=== PATIENT | female | born 1975 | race Caucasian/White ===

== ENCOUNTER → 2019-03-27 13:39 | Outpatient (BNVA) | payer MEDICARE, MEDICAID, SELFPAY | PROVIDERS: Family Provider Nurse Practitioner; PCP Nurse Practitioner; Visit Provider Nurse Practitioner | DX: I10 Essential (primary) hypertension (principal); J45.909 Unspecified asthma, uncomplicated; E53.8 Deficiency of other specified B group vitamins; E03.8 Other specified hypothyroidism; E55.9 Vitamin D deficiency, unspecified; F41.1 Generalized anxiety disorder; Z78.9 Other specified health status | CPT/HCPCS: 80053; 80061; 82306; 82607; 84443 ==

== ENCOUNTER → 2019-09-08 10:14 | Outpatient (BNVA) | payer MEDICARE, MEDICAID, SELFPAY | PROVIDERS: Family Provider Nurse Practitioner; PCP Nurse Practitioner; Visit Provider Nurse Practitioner | DX: E03.8 Other specified hypothyroidism (principal); E53.8 Deficiency of other specified B group vitamins; I11.0 Hypertensive heart disease with heart failure; R73.9 Hyperglycemia, unspecified; E55.9 Vitamin D deficiency, unspecified | CPT/HCPCS: 80053; 80061; 81000; 82306; 82607; 83036; 84443 ==

== ENCOUNTER → 2019-09-26 10:08 | Outpatient (BNVA) | payer MEDICARE, MEDICAID, SELFPAY | PROVIDERS: Family Provider Nurse Practitioner; PCP Nurse Practitioner; Visit Provider Nurse Practitioner Family | DX: N30.90 Cystitis, unspecified without hematuria (principal); N39.3 Stress incontinence (female) (male); F17.210 Nicotine dependence, cigarettes, uncomplicated | CPT/HCPCS: 80053; 81001; 87077; 87086; 87186 ==

== ENCOUNTER → 2019-12-21 12:00 | Outpatient (BNVA) | payer MEDICARE, MEDICAID, SELFPAY | PROVIDERS: Family Provider Nurse Practitioner; PCP Nurse Practitioner; Visit Provider Nurse Practitioner | DX: E53.8 Deficiency of other specified B group vitamins (principal); E55.9 Vitamin D deficiency, unspecified | CPT/HCPCS: 82607 ==

== ENCOUNTER 2020-03-16 10:53 | Emergency (ER) | payer MEDICARE, MEDICAID, SELFPAY ==
[2020-03-16 10:59] VITALS: BP 166/123; PULSE 113; RESP 18; TEMP 36.3; O2SAT 95; BMI 46.9
[2020-03-16 15:09] VITALS: BP 164/123; PULSE 115; RESP 22; O2SAT 96
--- NOTE | 2020-03-16 15:35 | XRR_ITS ---
PROCEDURE INFORMATION: Exam: XR Chest, 2 Views Exam date and time: 03/16/2020 3:36 PM Age: 44 years old Clinical indication: Shortness of breath; Additional info: SOB TECHNIQUE: Imaging protocol: XR of the chest Views: 2 views. COMPARISON: No relevant prior studies available. FINDINGS: Lungs: Unremarkable. No consolidation. Pleural space: Unremarkable. No pleural effusion. No pneumothorax. Heart/Mediastinum: Unremarkable. No cardiomegaly. Vasculature: Mild atherosclerosis of the thoracic aorta. Bones/joints: Unremarkable. XR/XR chest 2V* [id number] IMPRESSION: No acute cardiopulmonary disease demonstrated.
--- NOTE | 2020-03-16 15:39 | ED_ITS ---
HPI - Anxiety General: Chief Complaint: Anxiety Stated Complaint: COVID SYMPTOMS Time Seen by Provider: 03/16/20 15:25 History of Present Illness: HPI narrative: 44-year-old female presents to the emergency room with anxiety. She was exposed to her father who has tested positive for COVID-19 she has various symptoms she has a history of asthma she is worried she may have contracted it she is was tested yesterday and was negative. She has had different episodes of feeling short of breath having chest heaviness numbness and tingling and discomfort in her arms on her face all accompanied by rapid heart rate and rapid breathing. She is not having any sym ptoms at the time she is seen. She is not had any fever sweats or chills no anosmia and no diarrhea MD complaint: anxiety, heart racing and shortness of breath Onset (ago): hour(s) Symptoms: dyspnea, palpitations, extremity numbness/tingling, perioral numbness/tingling and sense of impending doom Severity: mild Quality: intermittent Place: home History of similar episodes: Yes Provoking factors: emotional stress Relieving factors: nothing Exacerbating factors: thinking about event Associated symptoms: Reports palpitations and short of breath; Deny anorexia, chest pain, chills, confusion, diaphoresis, fever(s), headache(s), malaise, nausea, syncope, vomiting or weakness Review of Systems Const: Denies: fever(s), chills, malaise or diaphoresis ENMT: Denies: throat pain, ear or mastoid pain, nasal discharge or nasal congestion Card: Reports: palpitations; Denies: chest pain or syncope Resp: Denies: dyspnea, productive cough or non-productive cough GI: Denies: nausea or vomiting : Denies: flank pain, difficulty voiding, dysuria, urinary frequency or urinary urgency Skin/Breast: Denies: rash or pruritus Neuro: Denies: headache(s) or confusion PFSH ED PFSH: Medical History Adult onset hypothyroidism Anxiety, generalized Asthma due to environmental allergies B12 deficiency Chronic cystitis Essential (primary) hypertension Stress incontinence Vitamin D deficiency Surgical History History of bladder surgery age 7 History of surgery on right wrist as a teen Family History Mother Heart trouble Father Alzheimer disease Other Heart disease Social History Smoking and tobacco status: current some day smoker cigarettes Second hand smoke exposure: Yes Smoking risk assessment/counseling performed?: Yes Alcohol intake: never Desire information about alcohol rehabilitation?: No Counseling given: No Desire information about substance/drug rehabilitation?: No Counseling given: No Caregiver/support person: No Lives independently: Yes Household members: none Marital status: Number of children: 1 service: No Current occupational status: disabled Pets and animals: Yes History of recent travel: No Current gender identity: Female Female Reproductive History: Date of last menstrual period: 12/05/19 Physical Exam Const: COMMON NORMALS: no acute distress GENERAL APPEARANCE: cooperative and comfortable ORIENTATION/CONSCIOUSNESS: Yes awake, Yes oriented to person, Yes oriented to place and Yes oriented to time HENMT: COMMON NORMALS: normocephalic, atraumatic and hearing grossly normal bilaterally HEAD & SCALP: normocephalic and atraumatic Eye: COMMON NORMALS: Equal, round and reactive pupils present, EOMs intact bilaterally, conjunctivae normal and no scleral icterus CONJUNCTIVA: Yes conjunctivae normal PUPIL: Yes Equal, round and reactive pupils present Neck/C-Spine: COMMON NORMALS: full ROM, no lymphadenopathy, supple and no JVD Lymph: LYMPHATIC: no lymphadenopathy noted and no lymphedema noted Resp: COMMON NORMALS: normal respiratory effort, No retractions, No use of accessory muscles and clear to auscultation bilaterally AUSCULTATION: clear to auscultation bilaterally Cardio: COMMON NORMALS: no JVD, regular rate, regular rhythm and No murmurs present (Cardio) RATE: regular rate RHYTHM: regular rhythm GI: COMMON NORMALS: Soft to palpation and No hepatosplenomegaly present AUSCULTATION: Yes normoactive bowel sounds PALPATION: Yes Soft to palpation, No Tenderness to palpation present (GI), No Guarding due to palpation present (GI) and Yes No hepatosplenomegaly present Extremity: COMMON NORMALS: normal to inspection, capillary refill normal, no clubbing, cyanosis or edema, no calf tenderness and no pedal edema Neuro: SENSORIUM/ORIENTATION: Yes oriented to person, Yes oriented to place and Yes oriented to time Skin: COMMON NORMALS: no rashes or lesions noted GENERAL SKIN EXAM: no rashes or lesions noted Course Vital Signs: Vital signs: Vital Signs Temperature 97.3 F L 03/16/20 10:59 Pulse Rate 100 03/16/20 16:30 Respiratory Rate 20 H 03/16/20 16:30 Blood Pressure 151/101 03/16/20 16:30 Pulse Oximetry 95 03/16/20 16:30 MDM - Anxiety MDM Narrative: Medical decision making narrative: Discussed findings with the patient. She has no findings of Covid this time she had a negative test yesterday discharge her home monitor for symptoms discussed with her she has any worsening or change symptoms return. Discharge Plan Discharge Patient Disposition: Home Clinical Impression: Acute anxiety, Asthma due to environmental allergies, Close exposure to COVID- 19 virus Condition: Stable Prescriptions: No Action nitrofurantoin monohyd/m-cryst 100 mg capsule 100 mg PO BID Qty: 28 RF: 3 (DME) syringe with needle 3 mL 25 gauge x 1 syringe See Rx Instructions ea .ROUTE .MEDSUPPLY Qty: 1 RF: 2 [place] 0.7 % drops ophthalmic (eye) RF: 0 carisoprodol 350 mg tablet 350 mg PO TID PRN (Reason: muscle pain) RF: 0 ibuprofen 600 mg tablet 600 mg PO BID RF: 0 albuterol sulfate 2.5 mg /3 mL (0.083 %) solution for nebulization 2.5 mg INHALATION Q6H PRN (Reason: wheezing) Qty: 75 RF: 2 citalopram 40 mg tablet 40 mg PO DAILY Qty: 30 RF: 2 docusate sodium 100 mg capsule 100 mg PO DAILY Qty: 30 RF: 2 ergocalciferol (vitamin D2) 1,250 mcg (50,000 unit) capsule 50,000 unit PO .weekly Qty: 4 RF: 2 levalbuterol tartrate [Xopenex HFA] 45 mcg/actuation HFA aerosol inhaler 2 inh INHALATION Q6H PRN (Reason: shortness of breath or wheezing) Qty: 15 RF: 2 levocetirizine 5 mg tablet 5 mg PO DAILY Qty: 30 RF: 2 levothyroxine 88 mcg tablet 88 mcg PO DAILY Qty: 30 RF: 2 lisinopril 20 mg tablet 20 mg PO DAILY Qty: 30 RF: 2 magnesium oxide 400 mg magnesium tablet 400 mg PO BID Qty: 60 RF: 2 montelukast 10 mg tablet 10 mg PO DAILY Qty: 30 RF: 2 propranolol 40 mg tablet 40 mg PO BID Qty: 60 RF: 2 cyanocobalamin (vitamin B-12) 1,000 mcg/mL solution 1,000 mcg IM .monthly Qty: 1 RF: 2 Hold Instructions: Doctor's Order Discharge Orders: Discharge ED (Routine); Ordered 03/16/20 Ordered By: Bill Luz Referrals: Jessica Cooney, ASSISTANT CORPORATE CONTROLLERChristopherC [Primary Care Provider] - Activity Restrictions/Additional Instructions: Continue previously prescribed medications. Coding Level of Care Code ED Molding And Trim Installer for Macy Fwd Exam Comprehensive
[2020-03-16 16:30] VITALS: BP 151/101; PULSE 100; RESP 20; O2SAT 95
== END 2020-03-16 16:30 | disposition home or self-care (01) ==
PROVIDERS: Emergency Provider Family Medicine; PCP Nurse Practitioner
DX: F41.9 Anxiety disorder, unspecified (principal); J45.998 Other asthma; Z20.828 Contact with and (suspected) exposure to other viral communicable diseases; I10 Essential (primary) hypertension; F17.210 Nicotine dependence, cigarettes, uncomplicated
CPT/HCPCS: 12345; 71046; 99281; 99282

== ENCOUNTER → 2020-04-04 14:30 | Outpatient (BNVA) | payer MEDICARE, MEDICAID, SELFPAY | PROVIDERS: PCP Nurse Practitioner; Visit Provider Nurse Practitioner | DX: Z20.828 Contact with and (suspected) exposure to other viral communicable diseases (principal); R00.2 Palpitations; E03.8 Other specified hypothyroidism; I10 Essential (primary) hypertension; E53.8 Deficiency of other specified B group vitamins; E55.9 Vitamin D deficiency, unspecified; J45.909 Unspecified asthma, uncomplicated | CPT/HCPCS: 80053; 80061; 82306; 82607; 84443; 87635 ==

== ENCOUNTER → 2020-05-28 11:40 | Outpatient (BNVA) | payer MEDICARE, MEDICAID, SELFPAY | PROVIDERS: PCP Nurse Practitioner; Visit Provider Nurse Practitioner | DX: J45.909 Unspecified asthma, uncomplicated (principal); F41.1 Generalized anxiety disorder; I10 Essential (primary) hypertension; E55.9 Vitamin D deficiency, unspecified; E78.1 Pure hyperglyceridemia; E03.8 Other specified hypothyroidism; H57.9 Unspecified disorder of eye and adnexa; R00.2 Palpitations; E53.8 Deficiency of other specified B group vitamins; R53.81 Other malaise | CPT/HCPCS: 80053; 85025 ==

== ENCOUNTER 2020-06-05 06:00 | Outpatient (RCR) | payer MEDICARE, MEDICAID, SELFPAY | END 2020-06-12 23:59 | disposition home or self-care (01) | LOC: TPT 06:00 | PROVIDERS: PCP Nurse Practitioner; Referring Provider Nurse Practitioner; Visit Provider Nurse Practitioner | DX: R53.81 Other malaise (principal) | CPT/HCPCS: 97110; 97161 ==

== ENCOUNTER 2020-06-13 06:00 | Outpatient (RCR) | payer MEDICARE, MEDICAID, SELFPAY | END 2020-07-12 23:59 | disposition home or self-care (01) | LOC: TPT 06:00 | PROVIDERS: PCP Nurse Practitioner; Referring Provider Nurse Practitioner; Visit Provider Nurse Practitioner | DX: R53.81 Other malaise (principal) | CPT/HCPCS: 97110 ==

== ENCOUNTER 2020-07-13 06:00 | Outpatient (RCR) | payer MEDICARE, MEDICAID, SELFPAY | END 2020-08-12 23:59 | disposition home or self-care (01) | LOC: TPT 06:00 | PROVIDERS: PCP Nurse Practitioner; Referring Provider Nurse Practitioner; Visit Provider Nurse Practitioner | DX: R53.81 Other malaise (principal) | CPT/HCPCS: 97110; 97140; 97164 ==

== ENCOUNTER → 2020-08-01 14:15 | Outpatient (BNVA) | payer MEDICARE, MEDICAID, SELFPAY | PROVIDERS: PCP Nurse Practitioner; Visit Provider Nurse Practitioner | DX: Z11.3 Encounter for screening for infections with a predominantly sexual mode of transmission (principal); Z12.4 Encounter for screening for malignant neoplasm of cervix | CPT/HCPCS: 86592; 87491; 87591; 87806; 88175 ==

== ENCOUNTER 2020-08-13 06:00 | Outpatient (RCR) | payer MEDICARE, MEDICAID, SELFPAY | END 2020-09-11 23:59 | disposition home or self-care (01) | LOC: TPT 06:00 | PROVIDERS: PCP Nurse Practitioner; Referring Provider Nurse Practitioner; Visit Provider Nurse Practitioner | DX: R53.81 Other malaise (principal) | CPT/HCPCS: 97110; 97140; 97164 ==

== ENCOUNTER → 2020-08-26 10:03 | Outpatient (BNVA) | payer MEDICARE, MEDICAID, SELFPAY | PROVIDERS: PCP Nurse Practitioner; Visit Provider Nurse Practitioner Family | DX: Z20.822 Contact with and (suspected) exposure to COVID-19 (principal) | CPT/HCPCS: 87635 ==

== ENCOUNTER 2020-09-12 06:00 | Outpatient (RCR) | payer MEDICARE, MEDICAID, SELFPAY | END 2020-10-12 23:59 | disposition home or self-care (01) | LOC: TPT 06:00 | PROVIDERS: PCP Nurse Practitioner; Referring Provider Nurse Practitioner; Visit Provider Nurse Practitioner | DX: R53.81 Other malaise (principal) | CPT/HCPCS: 97110 ==

== ENCOUNTER 2020-09-13 10:33 | Emergency (ER) | payer MEDICARE, MEDICAID, SELFPAY ==
[2020-09-13 11:42] VITALS: BP 144/100; PULSE 100; RESP 15; TEMP 36.8; O2SAT 95; BMI 45.7
--- NOTE | 2020-09-13 12:56 | W.ED.SKABFB ---
HPI - Skin/Abscess/Foreign Bdy General: Chief complaint: Skin/Abscess/Foreign Body Stated complaint: BOIL ON GROIN Time Seen by Provider: 09/13/20 11:51 History of Present Illness: HPI narrative: The patient is a 44-year-old female who comes to the ER complaining of an abscess in her pubic region. She says she has had abscesses on and off for the past month in that area and it was getting better until a few days ago she developed another one which hurts her worse. She has severe allergies to many antibiotics and even though doxycycline is not listed she says she does not like that antibiotic. She is requesting clindamycin. And has tolerated that one well before. Other listed allergies she turns blue. MD complaint: abscess/boil Onset (ago): day(s) (4) Severity: mild Exacerbating factors: palpation Context: none Associated symptoms: Reports no associated symptoms; Deny fever(s) Review of Systems General: Reports: 10 or more systems reviewed and unremarkable except in HPI and below Const: Denies: fever(s) Eyes: Denies: change in vision, blurry vision or eye redness ENMT: Denies: throat pain, swelling of lips/tongue, ear or mastoid pain or nasal congestion Card: Denies: chest pain, palpitations, irregular heart rhythm, edema, dyspnea on exertion or orthopnea Resp: Denies: dyspnea, productive cough or non-productive cough GI: Denies: abdominal pain, diarrhea or GI cramping : Denies: flank pain, difficulty voiding, urinary frequency or urinary urgency Musc: Denies: neck pain, back pain, extremity pain, joint pain, joint redness, limited range of motion or muscle weakness Skin/Breast: Reports: other (Boil to right pubic region); Denies: rash, pruritus, erythema, skin pain or skin tenderness Neuro: Denies: headache(s), numbness in extremities, weakness in extremities, sensory changes, difficulty walking, dizziness, confusion or Slurred speech present Psych: Denies: anxiety or depression Endo: Denies: polyuria All/Imm: Denies: urticaria, throat swelling or tongue swelling PFSH ED PFSH: Medical History Adult onset hypothyroidism Allergic eye reaction Anxiety, generalized Asthma due to environmental allergies B12 deficiency Chronic cystitis Essential (primary) hypertension Hypertriglyceridemia without hypercholesterolemia Obesity, morbid, BMI 40.0-49.9 Palpitations with regular cardiac rhythm Stress incontinence Vitamin D deficiency Surgical History History of bladder surgery age 7 History of surgery on right wrist as a teen Family History Mother Heart trouble Father Alzheimer disease Other Heart disease Social History Smoking and tobacco status: current some day smoker cigarettes Second hand smoke exposure: Yes Smoking risk assessment/counseling performed?: Yes Alcohol intake: never Desire information about alcohol rehabilitation?: No Counseling given: No Desire information about substance/drug rehabilitation?: No Counseling given: No Caregiver/support person: No Lives independently: Yes Household members: none Marital status: Number of children: 1 service: No Current occupational status: disabled Pets and animals: Yes History of recent travel: No Current gender identity: Female Female Reproductive History: Date of last menstrual period: 10/05/20 Physical Exam Const: COMMON NORMALS: no acute distress, average body habitus, patient oriented x3, no limitations, healthy appearing, alert and well nourished GENERAL APPEARANCE: cooperative, comfortable, well kempt and well developed ORIENTATION/CONSCIOUSNESS: Yes awake, Yes oriented to person, Yes oriented to place and Yes oriented to time HENMT: COMMON NORMALS: normocephalic, external ears normal and Normal external nose present HEAD & SCALP: normal to inspection and normocephalic NOSE: Normal external nose present EXTERNAL EAR: Yes external ears normal MOUTH: Normal oral and palatal mucosa present THROAT: posterior oropharynx normal Eye: COMMON NORMALS: Equal, round and reactive pupils present and EOMs intact bilaterally GENERAL EYE: appearance normal, both eyes and all related structures PUPIL: Yes Equal, round and reactive pupils present Neck/C-Spine: COMMON NORMALS: full ROM, no lymphadenopathy, no meningeal signs and no JVD GENERAL: Yes normal visual inspection Lymph: LYMPHATIC: no lymphadenopathy noted Chest: COMMONS NORMALS: normal inspection of the chest and normal palpation of entire chest wall Resp: COMMON NORMALS: normal respiratory effort, No retractions, No use of accessory muscles, clear to auscultation bilaterally and percussion normal EFFORT & INSPECTION: Yes able to speak in complete sentences AUSCULTATION: clear to auscultation bilaterally PERCUSSION: percussion normal Cardio: COMMON NORMALS: no JVD, regular rate, regular rhythm, S1 normal heart sound present, S2 normal heart sound present and Peripheral pulses 2+ throughout RATE: regular rate RHYTHM: regular rhythm HEART SOUNDS: S1 normal heart sound present and S2 normal heart sound present PERIPHERAL PULSES: Peripheral pulses 2+ throughout GI: COMMON NORMALS: Normal to inspection, nondistended, normoactive bowel sounds present, Soft to palpation, non-tender and no masses INSPECTION: Yes normal to inspection PALPATION: Yes Soft to palpation : COMMON NORMALS: Yes no CVA tenderness BLADDER/KIDNEY EXAM: Yes no CVA tenderness Back/Pelvis: COMMON NORMALS: no CVA tenderness, thoracic and lumbar spine normal to inspection, no thoracic nor lumbar tenderness and thoraco-lumbar ROM normal Extremity: COMMON NORMALS: normal to inspection, full ROM, capillary refill normal, no joint enlargement and no pedal edema GENERAL: Yes normal exam except as noted Neuro: COMMON NORMALS: patient oriented x3, CN's II-XII intact bilaterally, moves all extremities, no focal motor deficits, no sensory deficits noted and gait normal SENSORIUM/ORIENTATION: Yes alert, Yes oriented to person, Yes oriented to place and Yes oriented to time MENINGEAL SIGNS: Yes no meningeal signs Psych: COMMON NORMALS: mental status grossly normal, Normal thought process present, cooperative, normal affect and speech normal APPEARANCE: Yes well kempt ATTITUDE: Yes calm SPEECH: Yes normal speech THOUGHT PROCESS: Normal thought process present Skin: COMMON NORMALS: no rashes or lesions noted NARRATIVE SKIN EXAM: 2 small frontals to right pubic region. Other recent ones healing appropriately scattered. GENERAL SKIN EXAM: no rashes or lesions noted Procedures Abscess I/D Site: other (Right pubic region) Side (if applicable): right Local Anesthetic: lidocaine 1% Amount of anesthesia used (mL): 3 Technique: incised with #11 blade Amount of fluid expressed (mL): 1 Irrigation: No Packing used?: none Course Vital Signs: Vital signs: Vital Signs Temperature 98.3 F 09/13/20 11:42 Pulse Rate 100 09/13/20 11:42 Respiratory Rate 15 09/13/20 11:42 Blood Pressure 144/100 09/13/20 11:42 Pulse Oximetry 95 09/13/20 11:42 MDM - Skin/Abscess/Foreign Bdy MDM Narrative: Medical decision making narrative: Drain to small furuncles to the right pubic region. Small discharge. Patient tolerated well. She is requesting clindamycin. She did not tolerate doxy well and has severe allergies to multiple antibiotics. We will discharge her with clindamycin. She is going on vacation. Recommended go to local ER with worsening symptoms at any time. Follow-up with primary if possible in a few days to monitor wound. Discharge Plan Discharge Patient Disposition: Home Clinical Impression: Furuncle Condition: Stable Prescriptions: New clindamycin HCl 150 mg capsule 150 mg PO Q6H 7 Days Qty: 28 RF: 0 No Action carisoprodol 350 mg tablet 350 mg PO TID PRN (Reason: muscle pain) RF: 0 ibuprofen 600 mg tablet 600 mg PO BID RF: 0 albuterol sulfate 2.5 mg /3 mL (0.083 %) solution for nebulization 2.5 mg INHALATION Q6H PRN (Reason: wheezing) Qty: 75 RF: 2 budesonide-formoterol [Symbicort] 80-4.5 mcg/actuation HFA aerosol inhaler 2 puff inhalation Q12H Qty: 10.2 RF: 2 citalopram 40 mg tablet 40 mg PO DAILY Qty: 30 RF: 2 docusate sodium 100 mg capsule 100 mg PO DAILY Qty: 30 RF: 2 ergocalciferol (vitamin D2) 1,250 mcg (50,000 unit) capsule 50,000 unit PO .weekly Qty: 4 RF: 2 fenofibrate nanocrystallized [Tricor] 145 mg tablet 145 mg PO DAILY Qty: 30 RF: 2 levalbuterol tartrate [Xopenex HFA] 45 mcg/actuation HFA aerosol inhaler 2 inh INHALATION Q6H PRN (Reason: shortness of breath or wheezing) Qty: 15 RF: 2 levocetirizine 5 mg tablet 5 mg PO DAILY Qty: 30 RF: 2 levothyroxine 88 mcg tablet 88 mcg PO DAILY Qty: 30 RF: 2 lisinopril 20 mg tablet 20 mg PO DAILY Qty: 30 RF: 2 magnesium oxide 400 mg magnesium tablet 400 mg PO BID Qty: 60 RF: 2 montelukast 10 mg tablet 10 mg PO DAILY Qty: 30 RF: 2 olopatadine 0.2 % drops 1 drp ophthalmic (eye) QAM Qty: 2.5 RF: 2 propranolol 40 mg tablet 40 mg PO QID Qty: 120 RF: 2 (DME) syringe with needle 3 mL 25 gauge x 1 syringe See Rx Instructions ea .ROUTE .MEDSUPPLY Qty: 1 RF: 2 benzonatate [Tessalon Perles] 100 mg capsule 100 mg PO BID PRN (Reason: cough) Qty: 30 RF: 0 Discharge Orders: Discharge ED (Routine); Ordered 09/13/20 Ordered By: Juan Saxena Referrals: Jessica Cooney, STAGING TECHNICIAN-C [Primary Care Provider] - Discharge Diet: Advance as tolerated Discharge Activity: Resume usual activity Patient Instructions: Furunculosis and Carbunculosis (ED), Opioid Safety Activity Restrictions/Additional Instructions: You have had a couple boils to your right pubic region. I have drained both of them with a small amount of drainage. Please take the clindamycin to assist with the local infection. Return to the ER at any time. If you are traveling Google the nearest ER if your symptoms worsen. Coding Level of Care Code ED Statistical Machine Mechanic for Macy Valdovinos Exam Comprehensive
[2020-09-13] MEDS: clindamycin 150 mg Capsule PO (13:28)
[2020-09-13 13:29] VITALS: BP 143/82; PULSE 89; RESP 16; O2SAT 96
== END 2020-09-13 13:35 | disposition home or self-care (01) ==
PROVIDERS: Emergency Provider Family Medicine; PCP Nurse Practitioner
DX: L02.828 Furuncle of other sites (principal); I10 Essential (primary) hypertension; F17.210 Nicotine dependence, cigarettes, uncomplicated
CPT/HCPCS: 10060; 99283

== ENCOUNTER 2020-10-13 06:00 | Outpatient (RCR) | payer MEDICARE, MEDICAID, SELFPAY | END 2020-11-12 23:59 | disposition home or self-care (01) | LOC: TPT 06:00 | PROVIDERS: PCP Nurse Practitioner; Referring Provider Nurse Practitioner; Visit Provider Nurse Practitioner | DX: R53.81 Other malaise (principal) | CPT/HCPCS: 97110; 97164 ==

== ENCOUNTER → 2020-10-30 11:33 | Outpatient (BNVA) | payer MEDICARE, MEDICAID, SELFPAY | PROVIDERS: PCP Nurse Practitioner; Visit Provider Nurse Practitioner | DX: M47.896 Other spondylosis, lumbar region (principal); M54.5 Low back pain | CPT/HCPCS: 72100 ==

== ENCOUNTER → 2020-11-01 11:48 | Outpatient (BNVA) | payer MEDICARE, MEDICAID, SELFPAY | PROVIDERS: PCP Nurse Practitioner; Visit Provider Nurse Practitioner | DX: E03.8 Other specified hypothyroidism (principal); I10 Essential (primary) hypertension; E53.8 Deficiency of other specified B group vitamins; E55.9 Vitamin D deficiency, unspecified | CPT/HCPCS: 80053; 80061; 82306; 82607; 84443 ==

== ENCOUNTER → 2020-11-07 10:02 | Outpatient (BNVA) | payer MEDICARE, MEDICAID, SELFPAY | PROVIDERS: PCP Nurse Practitioner; Visit Provider Urology | DX: N30.20 Other chronic cystitis without hematuria (principal); N20.0 Calculus of kidney; N39.3 Stress incontinence (female) (male) | CPT/HCPCS: 87077; 87086; 87184 ==

== ENCOUNTER 2020-11-13 06:00 | Outpatient (RCR) | payer MEDICARE, MEDICAID, SELFPAY | END 2020-12-12 23:59 | disposition home or self-care (01) | LOC: TPT 06:00 | PROVIDERS: PCP Nurse Practitioner; Referring Provider Nurse Practitioner; Visit Provider Nurse Practitioner | DX: R53.81 Other malaise (principal) | CPT/HCPCS: 97110; 97164 ==

== ENCOUNTER 2020-11-20 11:37 | Outpatient (CLI) | payer MEDICARE, MEDICAID, SELFPAY ==
--- NOTE | 2020-11-20 12:00 | CT_ITS ---
WS: [id number] CT ABDOMEN PELVIS TECHNIQUE: Noncontrast CT of the abdomen and pelvis with coronal and sagittal reformatted images. CLINICAL INFORMATION: RENAL STONE COMPARISON: None. DLP: 2143.[address] scans at [facility] use at least one of these dose optimization techniques: automated e xposure control; mA and/or kV adjustment per patient size (includes targeted exams where dose is matc hed to clinical indication); or iterative reconstruction. FINDINGS: Adrenal glands are normal. Large calculus involving the right renal pelvis measuring 13 mm. Adjacent smaller calculi measuring 6 mm and 4 mm. Mild right obstructive uropathy with dilatation of the right renal pelvis. Mild dilatation of the right proximal ureter with surrounding inflammatory stranding. Mid and distal right ureter normal in appearance. No obstructing left renal or ureteral calculi. Left ureter is normal. Normal noncontrast bladder. Noncontrast liver is normal in appearance with enlargement of the right hepatic lobe. Normal spleen. Normal GE junction. Lung bases are well aerated. Two Tiny noncalcified subpleural nodules right middl e lobe. Noncontrast pancreas appears normal. Normal caliber abdominal aorta. No abdominal or pelvic l ymphadenopathy. No inguinal lymphadenopathy. No evidence of small or large bowel obstruction. No free fluid in the pelvis. Multifollicular ovaries bilaterally. CT/CT kidney stone [id number] IMPRESSION: 1. Large right renal pelvic calculus measuring 13 mm with adjacent smaller brandi culi measuring 6 and 4 mm. Mild obstructive uropathy with dilatation right david l pelvis and right proximal ureterectasis. Associated inflammatory stranding ab out the right renal pelvis and UPJ. 2. No obstructing left renal parenchymal or ureteral calculi. 3. Adrenal glands are normal. 4. Hepatomegaly with diffuse fatty infiltration. 5. Noncontrast bladder appears normal. 6. No other significant findings.
== END 2020-11-20 11:38 | disposition home or self-care (01) ==
LOC: RAD 11:40
PROVIDERS: PCP Nurse Practitioner; Visit Provider Urology
DX: N20.2 Calculus of kidney with calculus of ureter (principal); R16.0 Hepatomegaly, not elsewhere classified; K76.0 Fatty (change of) liver, not elsewhere classified
CPT/HCPCS: 74176; 81003

== ENCOUNTER → 2020-12-02 10:18 | Outpatient (BNVA) | payer MEDICARE, MEDICAID, SELFPAY | PROVIDERS: PCP Nurse Practitioner; Visit Provider Nurse Practitioner | DX: Z20.822 Contact with and (suspected) exposure to COVID-19 (principal) | CPT/HCPCS: 87635 ==

== ENCOUNTER → 2020-12-10 16:21 | Outpatient (BNVA) | payer MEDICARE, MEDICAID, SELFPAY | PROVIDERS: PCP Nurse Practitioner; Visit Provider Urology | DX: N20.0 Calculus of kidney (principal); Z20.822 Contact with and (suspected) exposure to COVID-19 | CPT/HCPCS: 87635 ==

== ENCOUNTER 2020-12-16 10:25 | Day surgery (SDC) | payer MEDICARE, MEDICAID, SELFPAY ==
[2020-12-13 10:50] VITALS: BMI 44.9
[2020-12-16] VITALS (9 sets, daily range): BP systolic 109–132; BP diastolic 75–93; PULSE 81–96; RESP 14–25; TEMP 36.1–36.8; O2SAT 91–98
--- NOTE | 2020-12-16 10:49 | XR_ITS ---
WS: [id number] XR KUB [id number] REASON FOR EXAM: preop ESWL FINDINGS: There are 3 large calculi overlying the central lower portion of the right kidney unchanged compared to the CT scan of 11/20/2020. No other urinary tract calculi identified. No other significant abdominal abnormality is identified. XR/XR KUB [id number] IMPRESSION: 3 large right intrarenal calculi unchanged in position.
[2020-12-16] MEDS: sodium chloride 0.9% 1,000 ML 30 ML IV (11:02)
[2020-12-16 11:27] LABS: OR HCG Qualitative Urine Negative (Negative)
--- NOTE | 2020-12-16 12:45 | W.PM.OPSUD ---
Surgery/Procedure H&P Update DATE OF PROCEDURE: December 16, 2020 DATE H&P PERFORMED: 11/20/20 H&P UPDATE INFORMATION: I have reviewed H&P completed within last 30 days, I have examined patient prior to procedure, Changes to prior documentation as noted here and H&P is in [facility] EMR on date indicated CHANGES TO PREVIOUS DOCUMENTATION: After her first visit she was originally planning on ESWL but then changed her mind and decided with the hope of 1 and done procedure wanted referral to the [facility] for percutaneous approach. Ultimately she changed her mind back to local care. We reviewed ESWL versus endoscopy and she has elected to proceed with ESWL and stent. Informed consent was obtained. PREOP DIAGNOSIS: Right renal calculus, partial staghorn PLANNED PROCEDURE: Operation Date: 12/16/20 12:00 Proposed Procedures p Cystoscopy [id number] N20.0(Not Applicable) - Terry Hamilton MD s Ureteral Stent Placement(Not Applicable) - Terry Hamilton MD s ESWL(Not Applicable) - Terry Hamilton MD
--- NOTE | 2020-12-16 14:14 | P.OP_ITS ---
Operative Report Date of procedure: December 16, 2020 Pre-op Diagnosis: Right renal calculus, partial staghorn Post-op diagnosis: same Procedure Done: 1. Cystoscopy with right ureteral stent placement (7 [place] by 26 cm double- pigtail without string) 2. Extracorporeal shockwave lithotripsy to right partial staghorn calculus Pathology: none sent Surgeon: Alfonso Neuropsychiatric Aide: Jade Anesthesia: General Estimated blood loss: None Urine output: Not measured Complications: None Findings: Stent placed without difficulty. Normal position. Stone treated with 2500 shocks with excellent change. May still need a second treatment based on the original stone burden but the response was good. Condition: stable Disposition: PACU Brief History: Cynthia is a very pleasant 45-year-old white female with a history of recurrent UTIs and found to have a partial staghorn on the right kidney. We discussed the options and she was back and forth between ESWL and percutaneous nephrostolithotomy but ultimately chose ESWL as initial treatment. Procedure: After routine preoperative evaluation examination and obtaining of informed consent she was taken to the operating suite on 12/16/2020 where general anesthesia was administered without difficulty after appropriate timeout was performed, SCDs confirmed to be functioning, preoperative antibiotics administered, beta-charlotte protocol confirmed. Prepped and draped in usual sterile fashion in dorsolithotomy position paying careful attention to avoiding pressure points. 21 [place] cystoscope with 30 degree lens was introduced to the urethral meatus and advanced into the bladder to videoscopy. Bladder was systematically examined and found to be within normal limits. Flexible tip guidewire was then easily advanced up the right ureter into the kidney and a 7 [place] by 26 cm double-pigtail stent without string was advanced over the guidewire through the cystoscope into appropriate position as confirmed via fluoroscopy and cystoscopy. The bladder was drained and then she was repositioned in supine position for the shockwave therapy component of the procedure. Shock head was positioned posteriorly. The stones were easily identified and focused upon. Shockwave therapy was initiated at a rate of 70 in intensity 1 with advancement in intensity of 4. After about 300 shocks a several minute pause was conducted. A total of 2500 shocks were administered. Once good change was noted the rate was increased to 80. Change was excellent. Real-time fluoroscopy was utilized to facilitate position changes as needed to paint the entire scope of the stones. At the completion of the procedure the stones all appear to be significantly changed. She tolerated procedure well without complications and was awakened in the operating room and returned to the recovery room in stable condition. PLANS: 1. Anticipate discharge from outpatient surgery 2. Follow-up next week with a KUB with possible cystoscopy and stent removal but I expect stent will remain for a while as we assess stone burden there remains and whether he needs to be retreated or not.
[2020-12-16] MEDS: HYDROmorphone 1 mg/mL INJ 1 mL 0.25 MG IVP (14:37)
--- NOTE | 2020-12-16 16:13 | ANES.PREANE2 ---
Pre-Anesthetic Assessment Pre-Anesthetic Assessment: Height/Weight: Height 1.65 m Weight 122.47 kg Temp Pulse Resp BP Pulse Ox 97.2 F L 89 16 121/82 96 12/16/20 15:26 12/16/20 15:26 12/16/20 15:26 12/16/20 15:26 12/16/20 15:26 Preop Diagnosis: Right renal calculus, partial staghorn Proposed Procedure: Operation Date: 12/16/20 12:00 Proposed Procedures p Cystoscopy 33727 05992 N20.0(Not Applicable) - Terry Hamilton MD s Ureteral Stent Placement(Not Applicable) - Terry Hamilton MD s ESWL(Not Applicable) - Terry Hamilton MD Was Beta Shaun taken within 24 hours: N/A Was Clonidine taken within 24 hours: N/A Last intake: Intake Last Liquid Date 12/15/20 Last Liquid Time 22:00 Last Solid Date 12/09/20 Last Solid Time 22:00 Social: Social History: Tobacco and No alcohol Exam: Pre-Anes Outpt Exam: alert, oriented x 3 and regular rate & rhythm Airway: Submandibular: WNL Cervical ROM: WNL MP: 2 Dentition: Full Pulmonary: Pulmonary: Asthma CV/HEM: CV/HEM: HTN GI: GI: GERD Metabolic: Metabolic: Morbid obesity and Thyroid Musc/skel: Musc/skel: OA/DJD Neuropsych: Neuropsych: Anxiety Anesthetic Plan: ASA status: 3 Anesthesia: General Risk of > 500 ml blood loss (7ml/kg in children): No PFSH Anesthesia PFSH: Medical History Adult onset hypothyroidism Allergic eye reaction Anxiety, generalized Asthma due to environmental allergies B12 deficiency Chronic cystitis Essential (primary) hypertension Family history of malignant melanoma Hypertriglyceridemia without hypercholesterolemia Obesity, morbid, BMI 40.0-49.9 Palpitations with regular cardiac rhythm Staghorn renal calculus Stress incontinence Vitamin D deficiency Surgical History History of bladder surgery age 7 History of surgery on right wrist as a teen Family History Mother Heart trouble Father Alzheimer disease Other Heart disease Social History Second hand smoke exposure: Yes Smoking risk assessment/counseling performed?: Yes Alcohol intake: never Desire information about alcohol rehabilitation?: No Counseling given: No Desire information about substance/drug rehabilitation?: No Counseling given: No Caregiver/support person: No Lives independently: Yes Household members: none Marital status: Number of children: 1 service: No Current occupational status: disabled Pets and animals: Yes History of recent travel: No Current gender identity: Female Female Reproductive History: Date of last menstrual period: 10/05/20 Data Anesthesia Other Labs: Laboratory Results - last 48 hr 12/16/20 11:26 Urine HCG, Qual Negative Cardiac Studies: No Data to Display
== END 2020-12-16 15:43 | disposition home or self-care (01) ==
PROVIDERS: PCP Nurse Practitioner; Visit Provider Urology
PROC: 0TJB8ZZ Inspection of Bladder, Via Natural or Artificial Opening Endoscopic (ICD-10-PCS; CPT 52000; principal; 2020-12-16 12:00)
PROC: (CPT 50605; 2020-12-16 12:00)
PROC: (CPT 50590; 2020-12-16 12:00)
DX: N20.2 Calculus of kidney with calculus of ureter (principal); I10 Essential (primary) hypertension; E66.01 Morbid (severe) obesity due to excess calories; Z68.41 Body mass index [BMI] 40.0-44.9, adult; F41.9 Anxiety disorder, unspecified; E03.9 Hypothyroidism, unspecified
CPT/HCPCS: 50590; 52332; 74018; 81025; 84703; 96365; C2625; J1100; J1170; J1580; J2370; J2405; J2704; J3010; J3490; J7030

== ENCOUNTER 2020-12-23 09:47 | Outpatient (CLI) | payer MEDICARE, MEDICAID, SELFPAY ==
--- NOTE | 2020-12-23 09:45 | XR_ITS ---
WS: [id number] XR KUB [id number] REASON FOR EXAM: RENAL CALCULUS FINDINGS: Right ureteral stent. Multiple large calculi in the right kidney have become less distinct with decre ased stone burden. No calculi identified along the course of the right ureteral stent. No calculi identified overlying the bladder. XR/XR KUB [id number] IMPRESSION: Right ureteral stent with right intrarenal calculi as above.
== END 2020-12-23 09:48 | disposition home or self-care (01) ==
LOC: RAD 09:52
PROVIDERS: PCP Nurse Practitioner; Visit Provider Urology
DX: N20.0 Calculus of kidney (principal); Z96.0 Presence of urogenital implants
CPT/HCPCS: 74018; 81003

== ENCOUNTER 2021-01-03 08:13 | Outpatient (CLI) | payer MEDICARE, MEDICAID, SELFPAY ==
--- NOTE | 2021-01-03 08:00 | XR_ITS ---
WS: [id number] KUB, AP view, 01/03/2021 Clinical Data: STAGHORN RENAL CALCULUS Comparison: KUB, 12/23/2020. Findings: The right ureteral stent remains in same position. There are calcifications overlying the inferior po le of the right kidney unchanged. The left kidney shows no calculi. XR/XR KUB [id number] Impression: No change in right ureteral stent and right renal calculi.
== END 2021-01-03 08:14 | disposition home or self-care (01) ==
LOC: RAD 08:15
PROVIDERS: PCP Nurse Practitioner; Visit Provider Urology
DX: N20.0 Calculus of kidney (principal); Z20.822 Contact with and (suspected) exposure to COVID-19
CPT/HCPCS: 74018; 81003; 87077; 87086; 87184; 87635

== ENCOUNTER 2021-01-06 11:40 | Day surgery (SDC) | payer MEDICARE, MEDICAID, SELFPAY ==
[2021-01-03 13:06] VITALS: BMI 44.1
--- NOTE | 2021-01-06 11:47 | XR_ITS ---
WS: [id number] Exam: XR KUB [id number] Date/Time of Exam: 01/06/2021 11:47 AM Reason For Exam: Preop ESWL right renal Comparison 01/03/2021. Right ureteral stent remains in satisfactory position without change. Multiple calcifications noted in the lower pole the right kidney apparently representing known renal stones. No bowel obstruction or free air. No sign of organ enlargement. XR/XR KUB [id number] IMPRESSION: 1. Calcifications in the lower pole the right kidney apparently representing mu ltiple renal stones. 2. Right ureteral stent catheter in place remaining in satisfactory position wi thout change.
[2021-01-06 12:25] VITALS: BP 135/104; PULSE 86; RESP 18; TEMP 36.7; O2SAT 96
[2021-01-06 12:26] LABS: OR HCG Qualitative Urine Negative (Negative)
--- NOTE | 2021-01-06 12:49 | ANES.PREANE2 ---
Pre-Anesthetic Assessment Pre-Anesthetic Assessment: Height/Weight: Height 1.65 m Weight 120.202 kg Temp Pulse Resp BP Pulse Ox 98.1 F 86 18 135/104 96 01/06/21 12:25 01/06/21 12:25 01/06/21 12:25 01/06/21 12:25 01/06/21 12:25 Preop Diagnosis: Residual right renal calculi Proposed Procedure: Operation Date: 01/06/21 13:15 Proposed Procedures p ESWL N20.0 55227(Right) - Terry Hamilton MD Was Beta Shaun taken within 24 hours: Yes Was Clonidine taken within 24 hours: N/A Social: Social History: Tobacco Packs per day: 1/2 Comment: Smoked today Exam: Pre-Anes Outpt Exam: alert, oriented x 3, clear to auscultation bilaterally and regular rate & rhythm Airway: Submandibular: WNL Cervical ROM: WNL MP: 2 Pulmonary: Pulmonary: Asthma and COPD CV/HEM: CV/HEM: HTN Metabolic: Metabolic: Morbid obesity and Thyroid Neuropsych: Neuropsych: Anxiety Anesthetic Plan: ASA status: 3 Anesthesia: Anesthesia Evaluation and General Risk of > 500 ml blood loss (7ml/kg in children): No PFSH Anesthesia PFSH: Medical History Adult onset hypothyroidism Allergic eye reaction Anxiety, generalized Asthma due to environmental allergies B12 deficiency Chronic cystitis Essential (primary) hypertension Family history of malignant melanoma Hypertriglyceridemia without hypercholesterolemia Obesity, morbid, BMI 40.0-49.9 Palpitations with regular cardiac rhythm Staghorn renal calculus Stress incontinence Vitamin D deficiency Surgical History History of bladder surgery age 7 History of surgery on right wrist as a teen Family History Mother Heart trouble Father Alzheimer disease Other Heart disease Social History Second hand smoke exposure: Yes Smoking risk assessment/counseling performed?: Yes Alcohol intake: never Desire information about alcohol rehabilitation?: No Counseling given: No Desire information about substance/drug rehabilitation?: No Counseling given: No Caregiver/support person: No Lives independently: Yes Household members: none Marital status: Number of children: 1 service: No Current occupational status: disabled Pets and animals: Yes History of recent travel: No Current gender identity: Female Female Reproductive History: Date of last menstrual period: 10/05/20 Data Anesthesia Other Labs: Laboratory Results - last 48 hr 01/06/21 12:25 Urine HCG, Qual Negative Cardiac Studies: No Data to Display
[2021-01-06] MEDS: sodium chloride 0.9% 1,000 ML 30 ML IV (12:50)
--- NOTE | 2021-01-06 13:17 | W.PM.OPSUD ---
Surgery/Procedure H&P Update DATE OF PROCEDURE: January 06, 2021 DATE H&P PERFORMED: 01/02/21 H&P UPDATE INFORMATION: I have reviewed H&P completed within last 30 days, I have examined patient prior to procedure, No changes to prior documentation and H&P is in [facility] EMR on date indicated CHANGES TO PREVIOUS DOCUMENTATION: She slipped and bumped her knee this morning. Examined the knee and there was no significant injury identified. Had a mild abrasion and some mild redness but no significant edema, crepitus, tenderness. PREOP DIAGNOSIS: Residual right renal calculi PLANNED PROCEDURE: Operation Date: 01/06/21 13:15 Proposed Procedures p ESWL N20.0 58154(Right) - Terry Hamilton MD
--- NOTE | 2021-01-06 13:19 | PM.OP ---
Operative Report Date of procedure: January 06, 2021 Pre-op Diagnosis: Residual right renal calculi Post-op diagnosis: same Procedure Done: 1. Extracorporeal shockwave lithotripsy to RIGHT residual renal calculi Specimens removed/disposition: None Pathology: none sent Surgeon: Alfonso Kinesiology Professor: Jade Anesthesia: General Estimated blood loss: None Complications: None Findings: Good change to residual stones. 2500 shocks administered. Condition: stable Disposition: PACU Brief History: Cynthia is a very pleasant 45-year-old white female with a history of complex large burden stone disease partial staghorn on the right. Originally she was interested in pursuing percutaneous nephrostolithotomy which was our first recommendation but she ultimately decided against it not wanting to travel. We had reviewed endoscopic treatment in a retrograde fashion as well as ESWL and she wanted to start with that. To date has undergone 1 ESWL treatment with good change but still has a fairly significant amount of stone burden as expected at the initiation of treatment. It was felt that she would take at least a couple treatments probably more possibly different modalities in order to clear the stones entirely. Tolerating the stent reasonably well. Back now for ESWL #2 to the complex stone disease in the right kidney. Procedure: After routine preoperative evaluation examination and obtaining of informed consent she was taken to the operating suite on 01/06/2021 where general anesthesia was administered without difficulty after appropriate timeout was performed, SCDs confirmed to be functioning, preoperative antibiotics administered, beta-charlotte protocol confirmed. Position on the Dornier unit in supine position paying careful attention to avoiding pressure points. Shock head was positioned posteriorly. Stone cluster was easily accounted for. She was placed in slight Trendelenburg and the more cephalad stones were initially focused upon. Positioning was changed as changes in the stone burden were noted. Shockwave was initiated at 10 intensity of 1 advanced to an intensity of 4 at a rate of 70 throughout. After the full complement of 2500 shocks there was a significant amount of difference noted. The lowest stone did not appear to change as much as the others all of which showed significant improvement spreading, decreased density and loss of borders. The stent was left indwelling. There was no change. She tolerated the procedure well without complications and was awakened in the operating room and returned to the recovery room in stable condition. PLANS: 1. Anticipate discharge from outpatient surgery 2. Follow-up in roughly 2 weeks for reevaluation possible cystoscopy stent removal.
[2021-01-06 14:14] VITALS: BP 128/84; PULSE 85; RESP 12; TEMP 36.6; O2SAT 98
[2021-01-06 14:20] VITALS: BP 176/111; PULSE 92; RESP 20; O2SAT 96
[2021-01-06 14:25] VITALS: BP 144/89; PULSE 88; RESP 18; TEMP 36.6; O2SAT 92
[2021-01-06 14:35] VITALS: BP 140/88; PULSE 88; RESP 18; TEMP 36.7; O2SAT 93
== END 2021-01-06 15:00 | disposition home or self-care (01) ==
PROVIDERS: PCP Nurse Practitioner; Visit Provider Urology
PROC: (CPT 50590; principal; 2021-01-06 13:10)
DX: N20.0 Calculus of kidney (principal); J44.9 Chronic obstructive pulmonary disease, unspecified; I10 Essential (primary) hypertension; E66.01 Morbid (severe) obesity due to excess calories; Z68.41 Body mass index [BMI] 40.0-44.9, adult; F41.9 Anxiety disorder, unspecified; E03.9 Hypothyroidism, unspecified
CPT/HCPCS: 50590; 74018; 84703; J1100; J1580; J2405; J2704; J3010; J7030

== ENCOUNTER 2021-01-20 09:14 | Outpatient (CLI) | payer MEDICARE, MEDICAID, SELFPAY ==
--- NOTE | 2021-01-20 09:15 | XRR_ITS ---
PROCEDURE INFORMATION: Exam: XR Abdomen Exam date and time: 01/20/2021 9:15 AM Age: 45 years old Clinical indication: Condition or disease; Kidney or ureter condition; Calculus (stone) in kidney; Prior surgery; Surgery date: <1 month; Patient HX: History--hx of staghorn renal calculus; Renal stent placed about 1 month ago TECHNIQUE: Imaging protocol: XR of the abdomen. Views: Frontal supine view of the abdomen. 1 View. COMPARISON: CR XR KUB [id number] 01/06/2021 11:56 AM FINDINGS: Tubes, catheters and devices: Right double-J ureteral stent again noted in similar positioning. Multiple renal stones are again noted in the lower pole the right kidney. This is not significantly changed from prior study. Gastrointestinal tract: Normal. No bowel dilation. Bones/joints: Unremarkable. XR/XR KUB [id number] IMPRESSION: Redemonstration of multiple renal stones in the lower pole of the right kidney, not significantly changed from prior study. Similar positioning of the right ureteral stent. Radiation Dose CTDIVOL = (mGy): DLP = (mGy-cm)
== END 2021-01-20 09:15 | disposition home or self-care (01) ==
LOC: RAD 09:16
PROVIDERS: PCP Nurse Practitioner; Visit Provider Urology
DX: N20.0 Calculus of kidney (principal); Z96.0 Presence of urogenital implants
CPT/HCPCS: 74018; 81003

== ENCOUNTER 2021-01-27 10:25 | Outpatient (CLI) | payer MEDICARE, MEDICAID, SELFPAY ==
--- NOTE | 2021-01-27 10:32 | XRR_ITS ---
PROCEDURE INFORMATION: Exam: XR Abdomen Exam date and time: 01/27/2021 10:32 AM Age: 45 years old Clinical indication: Condition or disease; Kidney or ureter condition; Calculus (stone) in kidney; Prior surgery; Surgery type: Stent; Additional info: Staghorn renal calculus TECHNIQUE: Imaging protocol: XR of the abdomen. Views: Frontal supine view of the abdomen. 1 View. Total images: 2 COMPARISON: CR XR KUB [id number] 01/20/2021 9:33 AM FINDINGS: Gastrointestinal tract: Bowel gas pattern is nondistended and nonobstructive. Organs: A double-J right ureteral stent is in place and appears appropriately positioned within the right renal pelvis and urinary bladder. Irregular calcifications projecting in the inferior pole of the right kidney unchanged from prior exam and are consistent with renal calculi. No ureteral nor bladder calculi detected. Bones/joints: Mild scattered degenerative changes of the spine. XR/XR KUB [id number] IMPRESSION: 1. A double-J right ureteral stent is in place and appears appropriately positioned within the right renal pelvis and urinary bladder. 2. Normal bowel gas pattern 3. Irregular calcifications projecting in the inferior pole of the right kidney unchanged from prior exam and are consistent with renal calculi. No ureteral nor bladder calculi detected. Radiation Dose CTDIVOL = (mGy): DLP = (mGy-cm)
== END 2021-01-27 10:26 | disposition home or self-care (01) ==
PROVIDERS: PCP Nurse Practitioner; Visit Provider Urology
DX: N20.0 Calculus of kidney (principal); Z96.0 Presence of urogenital implants
CPT/HCPCS: 74018; 81003; 87635

== ENCOUNTER 2021-02-03 11:54 | Day surgery (SDC) | payer MEDICARE, MEDICAID, SELFPAY ==
[2021-01-31 16:56] VITALS: BMI 44.9
[2021-02-03] VITALS (9 sets, daily range): BP systolic 114–141; BP diastolic 66–105; PULSE 73–89; RESP 17–21; TEMP 36.3–37.2; O2SAT 92–98
--- NOTE | 2021-02-03 | SCC_ITS ---
Procedure Done: 1. Cystoscopy with removal of right ureteral stent 2. Right ureterorenoscopy, laser lithotripsy 3. Replacement of right ureteral stent (6 Cape Verdean by 26 cm double-pigtail without string 4. Right retrograde pyelogram 66.1 seconds of fluoroscopic guidance, for a cumulative dose of 23.94 mGy, was provided to Dr. Hamilton by the radiology department. C-arm images of the abdomen were saved for the patient's permanent record. KEVOND
--- NOTE | 2021-02-03 12:10 | XRR_ITS ---
PROCEDURE INFORMATION: Exam: XR Abdomen Exam date and time: 02/03/2021 12:10 PM Age: 45 years old Clinical indication: Condition or disease; Kidney or ureter condition; Calculus (stone) in kidney; Patient HX: Stent; Additional info: Preop right ureteroscopy TECHNIQUE: Imaging protocol: XR of the abdomen. Views: Frontal supine view of the abdomen. 1 View. COMPARISON: CR XR KUB [id number] 01/27/2021 10:37 AM FINDINGS: Gastrointestinal tract: Nonobstructive bowel gas pattern. Vasculature: Right JJ stent extending from the region of the renal pelvis to the bladder. Persistent lower pole infundibulum staghorn calculus measuring up to 19 mm with adjacent 7 mm lower pole calculus, similar to prior. Bones/joints: Osseous structures unremarkable. XR/XR KUB [id number] IMPRESSION: Right JJ stent appears in appropriate position. No appreciable change in right lower pole stone burden. Radiation Dose CTDIVOL = (mGy): DLP = (mGy-cm)
--- NOTE | 2021-02-03 12:10 | SC_ITS ---
WS: [id number] C-ARM RADIOGRAPHS ABDOMEN; 6 IMAGES HISTORY: Right ureteroscopy COMPARISON: 02/03/2021 Intraoperative RIGHT ureteroscopy. There is an existing RIGHT ureteral pigtail catheter. SC/C-arm FL for Urology IMPRESSION: Intraoperative imaging during RIGHT ureteroscopy.
--- NOTE | 2021-02-03 12:45 | ANES.PREANE2 ---
Pre-Anesthetic Assessment Pre-Anesthetic Assessment: Height/Weight: Height 1.65 m Weight 122.47 kg Preop Diagnosis: Residual right renal stone fragments post ESWL x2 Proposed Procedure: Operation Date: 12/02/20 16:20 Proposed Procedures p Cystoscopy 32775 59505 N20.0(Not Applicable) - Terry Hamilton MD s Ureteral Stent Placement(Right) - Teryr Hamilton MD s ESWL(Not Applicable) - Terry Hamilton MD Operation Date: 02/03/21 13:35 Proposed Procedures p Laser Lithotripsy 67998 32022 N20.0(Right) - Terry Hamilton MD s Cystoscopy(Right) - MD elizabeth Orantes Ureteroscopy(Right) - Terry Hamilton MD s Ureteral Stent Exchange(Right) - Terry Hamilton MD Familial anesthetic complications: None (allergies to antibiotics) Last intake: > 8 hrs Social: Social History: Tobacco and No alcohol Exam: Pre-Anes Outpt Exam: alert, oriented x 3, clear to auscultation bilaterally and regular rate & rhythm Airway: Cervical ROM: WNL MP: 3 Dentition: Full Pulmonary: Pulmonary: Asthma CV/HEM: CV/HEM: HTN and Palp Metabolic: Metabolic: Morbid obesity and Thyroid Anesthetic Plan: ASA status: 3 Anesthesia: General Risk of > 500 ml blood loss (7ml/kg in children): No PFSH Anesthesia PFSH: Medical History Adult onset hypothyroidism Allergic eye reaction Anxiety, generalized Asthma due to environmental allergies B12 deficiency Chronic cystitis Essential (primary) hypertension Family history of malignant melanoma Hypertriglyceridemia without hypercholesterolemia Obesity, morbid, BMI 40.0-49.9 Palpitations with regular cardiac rhythm Staghorn renal calculus Stress incontinence Vitamin D deficiency Surgical History History of bladder surgery age 7 History of surgery on right wrist as a teen Family History Mother Heart trouble Father Alzheimer disease Other Heart disease Social History Second hand smoke exposure: Yes Smoking risk assessment/counseling performed?: Yes Alcohol intake: never Desire information about alcohol rehabilitation?: No Counseling given: No Desire information about substance/drug rehabilitation?: No Counseling given: No Caregiver/support person: No Lives independently: Yes Household members: none Marital status: Number of children: 1 service: No Current occupational status: disabled Pets and animals: Yes History of recent travel: No Current gender identity: Female Female Reproductive History: Date of last menstrual period: 01/20/21 Data Anesthesia Cardiac Studies: No Data to Display
[2021-02-03 12:55] LABS: OR HCG Qualitative Urine Negative (Negative)
[2021-02-03] MEDS: sodium chloride 0.9% 1,000 ML 30 ML IV (13:03)
--- NOTE | 2021-02-03 14:23 | P.HPUD_ITS ---
Surgery/Procedure H&P Update DATE OF PROCEDURE: February 03, 2021 DATE H&P PERFORMED: 01/02/21 H&P UPDATE INFORMATION: I have reviewed H&P completed within last 30 days, I have examined patient prior to procedure, No changes to prior documentation and H&P is in [facility] [place] on date indicated PREOP DIAGNOSIS: Residual right renal stone fragments post ESWL x2 PLANNED PROCEDURE: Operation Date: 12/02/20 16:20 Proposed Procedures p Cystoscopy 21502 88379 N20.0(Not Applicable) - Trery Hamilton MD s Ureteral Stent Placement(Right) - Terry Hamilton MD s ESWL(Not Applicable) - Terry Hamilton MD Operation Date: 02/03/21 13:35 Proposed Procedures p Laser Lithotripsy 50518 91733 N20.0(Right) - Terry Hamilton MD s Cystoscopy(Right) - Terry Hamilton MD s Ureteroscopy(Right) - Terry Hamilton MD s Ureteral Stent Exchange(Right) - Terry Hamilton MD
--- NOTE | 2021-02-03 14:34 | P.OP_ITS ---
Operative Report Date of procedure: February 03, 2021 Pre-op Diagnosis: Residual right renal stone fragments post ESWL x2 Post-op diagnosis: same Procedure Done: 1. Cystoscopy with removal of right ureteral stent 2. Right ureterorenoscopy, laser lithotripsy 3. Replacement of right ureteral stent (6 Turkmen by 26 cm double-pigtail without string 4. Right retrograde pyelogram Implants: Ureteral stent Pathology: Stone fragments Surgeon: Alfonso Anesthesia: General Estimated blood loss: <5 cc Urine output: Not measured Complications: None Condition: stable Disposition: PACU Brief History: Cynthia is a very pleasant 45-year-old white female who has been treated with ESWL and stent x2 for 2 large partial staghorn calculi in the right kidney. Originally we had recommended percutaneous nephrostolithotomy and she had a consult for that but ultimately she changed her mind and wanted to proceed locally with ESWL and possible retrograde endoscopy. She has had substantial change in her stone burden and volume with some residual fragments in the RLP calyx. Postural percussion has helped clear some but it is not clear whether there is a burden of moderate size stones difficult to pass or whether this is just aggregate sand. Admitted now for stent removal and ureterorenoscopy to try and clear the residual stone burden Procedure: After routine preoperative evaluation examination and obtaining of informed consent she was taken to the operating suite on 02/03/2021 where general anesthesia was administered without difficulty after appropriate timeout was warm, SCDs confirmed to be functioning, preoperative antibiotics administered, beta-charlotte protocol confirmed. Prepped and draped in usual sterile fashion in dorsolithotomy position paying careful attention to avoiding pressure points. 21 Turkmen cystoscope with 30 degree lens was introduced into the urethra meatus and advanced into the bladder to videoscopy. Bladder systematically examined and found to be within normal limits. A flexible tip guidewire was then advanced easily up the RIGHT ureter next to the stent. The stent was then secured with grasping forceps pulled through the urethral meatus and a second guidewire was passed through the stent. Stent was removed. 1 wire was secured to the drapes as a safety wire and the second wire was uti lized as a working wire. A 38 cm ureteral access sheath was advanced without difficulty under fluoroscopic guidance up the right ureter over the working wire. Flexible ureteroscope was then advanced up the right ureter through the sheath into the renal pelvis. The renal pelvis was flushed free from sediment and some contrast was injected into the collecting system to help identify the different calyces. The scope was advanced into all the different calyces with most of the attention paid to the right lower pole calyceal system. There were 3 areas of stones. There was 1 stone in the upper pole calyx and to lower pole calyx that had stone fragments. These were felt to be too large to spontaneously pass. A 200 ?m thulium superpulse laser fiber was then passed through the flexible ureteroscope and the 3 areas of stones were sequentially treated with dusting technique. As expected per her previous imaging one of the lower pole calyces was rather deep from the infundibulum into the calyx. This is where the largest bulk of stone existed. At the completion of the dusting procedure I could not identify any substantial remaining fragments but there was a large amount of basically sand material. All this was felt to be too small to try to basket. Hemostasis was good. The sheath was backed down to the hub of the scope and the ureter was inspected as the scope was slowly removed. There was some mild oozing from several sites but nothing of any consequence. Some of the fragments washed down the ureter with the scope removal. Cystoscope was then backloaded over the safety wire and a 6 Turkmen by 26 cm double-pigtail stent without string was passed easily over the guidewire through the cystoscope into appropriate position as confirmed via fluoroscopy and cystoscopy the bladder was drained including some small fragments and the procedure was completed. She tolerated the procedure well without complications and was awakened in the operating room and returned to the recovery room in stable condition. PLANS: 1. Anticipate discharge from outpatient surgery today 2. Follow-up on 02/14/2021 for cystoscopy and stent removal following KUB.
[2021-02-03] MEDS: iohexol 300 mg/mL 50 mL Btl (OR ONLY) XX (15:12)
[2021-02-08 21:04] LABS: Stone Source NOT GIVEN
== END 2021-02-03 17:03 | disposition home or self-care (01) ==
PROVIDERS: PCP Nurse Practitioner; Visit Provider Urology
PROC: (CPT 52356; principal; 2021-02-03 13:15)
PROC: 0TJB8ZZ Inspection of Bladder, Via Natural or Artificial Opening Endoscopic (ICD-10-PCS; CPT 52000; 2021-02-03 13:15)
PROC: 0TJ98ZZ Inspection of Ureter, Via Natural or Artificial Opening Endoscopic (ICD-10-PCS; CPT 52351; 2021-02-03 13:15)
PROC: (CPT 52356; 2021-02-03 13:15)
DX: N20.0 Calculus of kidney (principal); E03.8 Other specified hypothyroidism; Z87.442 Personal history of urinary calculi; Z88.1 Allergy status to other antibiotic agents; Z88.2 Allergy status to sulfonamides; Z77.22 Contact with and (suspected) exposure to environmental tobacco smoke (acute) (chronic)
CPT/HCPCS: 52356; 74018; 76000; 81025; 82365; 84703; 88300; C2625; J1100; J1580; J2405; J2704; J2710; J3010; J3490; J7030

== ENCOUNTER 2021-02-14 10:21 | Outpatient (CLI) | payer MEDICARE, MEDICAID, SELFPAY ==
--- NOTE | 2021-02-14 10:15 | XR_ITS ---
WS: [id number] KUB, AP view, 02/14/2021 Clinical Data: STAGHORN RENAL CALCULUS Comparison: KUB, 02/03/2021. Findings: No abnormal intraabdominal masses are seen. There is no dilatated small bowel or evidence of obstruct ion. The right ureteral stent remains in good position. The number of stones in the lower pole of the righ t kidney has diminished. XR/XR KUB [id number] Impression: 1. Right ureteral stent unchanged. 2. Decrease in lower pole right ureteral calculi.
== END 2021-02-14 10:22 | disposition home or self-care (01) ==
LOC: RAD 10:24
PROVIDERS: PCP Nurse Practitioner; Visit Provider Urology
DX: N20.0 Calculus of kidney (principal); Z96.0 Presence of urogenital implants
CPT/HCPCS: 74018; 81003

== ENCOUNTER → 2021-04-04 15:30 | Outpatient (BNVA) | payer MEDICARE, MEDICAID, SELFPAY | PROVIDERS: PCP Nurse Practitioner; Visit Provider Nurse Practitioner | DX: Z11.52 Encounter for screening for COVID-19 (principal); Z20.822 Contact with and (suspected) exposure to COVID-19 | CPT/HCPCS: 87635 ==

== ENCOUNTER 2021-05-20 08:59 | Outpatient (CLI) | payer MEDICARE, MEDICAID, SELFPAY ==
--- NOTE | 2021-05-20 09:30 | XRR_ITS ---
PROCEDURE INFORMATION: Exam: XR Abdomen Exam date and time: 05/20/2021 9:30 AM Age: 45 years old Clinical indication: Staghorn renal calculus. TECHNIQUE: Imaging protocol: XR of the abdomen. Views: Frontal supine view of the abdomen. 1 View. COMPARISON: CR XR KUB [id number] 02/14/2021 10:32 AM FINDINGS: Tubes, catheters and devices: A right ureteral stent has been removed. Gastrointestinal tract: Nonobstructive bowel gas pattern. Intraperitoneal space: No gross free air. Organs: The renal shadows are partially obscured by overlying bowel gas/stool. Possible small stones in the right kidney. Bones/joints: No gross acute fracture. XR/XR KUB [id number] IMPRESSION: 1. The renal shadows are partially obscured by overlying bowel gas/stool. Possible small stones in the right kidney. 2. A right ureteral stent has been removed.
== END 2021-05-20 09:00 | disposition home or self-care (01) ==
PROVIDERS: PCP Nurse Practitioner; Visit Provider Urology
DX: N20.0 Calculus of kidney (principal)
CPT/HCPCS: 74018; 81003

== ENCOUNTER → 2021-05-21 11:41 | Outpatient (BNVA) | payer MEDICARE, MEDICAID, SELFPAY | PROVIDERS: PCP Nurse Practitioner; Visit Provider Nurse Practitioner | DX: I10 Essential (primary) hypertension (principal); E03.8 Other specified hypothyroidism; E53.8 Deficiency of other specified B group vitamins | CPT/HCPCS: 80053; 80061; 82607; 84443 ==

== ENCOUNTER → 2021-11-24 15:45 | Outpatient (BNVA) | payer MEDICARE, MEDICAID, SELFPAY | PROVIDERS: PCP Nurse Practitioner; Visit Provider Nurse Practitioner | DX: R00.2 Palpitations (principal); I10 Essential (primary) hypertension; E55.9 Vitamin D deficiency, unspecified; Z12.39 Encounter for other screening for malignant neoplasm of breast | CPT/HCPCS: 80053; 80061; 82306; 82607; 84443; 85025 ==

== ENCOUNTER 2021-12-03 10:22 | Outpatient (CLI) | payer MEDICARE, MEDICAID, SELFPAY ==
--- NOTE | 2021-12-03 10:33 | MM_ITS ---
WS: [id number] Bilateral screening 3D tomosynthesis digital mammogram, 12/03/2021 Clinical Data: Z12.39 - Encounter for other screening for malignant neop... Comparison: None. Findings: The breast parenchymal pattern shows fibroglandular tissue No spiculated masses or clustered calcific ations are seen. There are no secondary signs of carcinoma. MM/[place] [id number] Impression: 1. Negative bilateral mammogram no previous mammogram for review. 2. Recommend annual screening mammograms. BIRADS: 1-Negative FOLLOW UP: 1 Year Follow-up The CAD freight checker was used.
== END 2021-12-03 10:23 | disposition home or self-care (01) ==
PROVIDERS: PCP Nurse Practitioner; Visit Provider Nurse Practitioner
DX: Z12.31 Encounter for screening mammogram for malignant neoplasm of breast (principal)
CPT/HCPCS: 77063; 77067

== ENCOUNTER 2022-02-06 13:00 | Outpatient (CLI) | payer MEDICARE, MEDICAID, SELFPAY ==
--- NOTE | 2022-02-06 13:00 | US_ITS ---
WS: [id number] ULTRASOUND SOFT TISSUES posterior RIGHT upper extremity. HISTORY: R22.31 - Localized swelling, mass and lump, right upper limb COMPARISON: None available. TECHNIQUE: 2-D and color Doppler imaging is submitted. Palpable area in the posterior RIGHT upper extremity is hyperechoic measuring 2.1 x 2.1 x 1.0 cm. No increased vascularity. No displacement of the soft tissues. This is very superficial and most consist ent with a benign lipoma. US/US soft tissue/extremity [id number] IMPRESSION: Palpable soft tissue nodule corresponds to what appears to be a benign lipoma.
== END 2022-02-06 13:01 | disposition home or self-care (01) ==
LOC: RAD 13:01
PROVIDERS: PCP Nurse Practitioner; Visit Provider Nurse Practitioner
DX: R22.31 Localized swelling, mass and lump, right upper limb (principal)
CPT/HCPCS: 76882

== ENCOUNTER → 2022-03-18 10:41 | Outpatient (BNVA) | payer MEDICARE, MEDICAID, SELFPAY | PROVIDERS: PCP Nurse Practitioner; Visit Provider Nurse Practitioner | DX: I10 Essential (primary) hypertension (principal); J45.909 Unspecified asthma, uncomplicated; F41.1 Generalized anxiety disorder; E55.9 Vitamin D deficiency, unspecified; E03.8 Other specified hypothyroidism; R00.2 Palpitations; L30.9 Dermatitis, unspecified | CPT/HCPCS: 80053 ==

== ENCOUNTER 2022-05-21 09:52 | Outpatient (CLI) | payer MEDICARE, MEDICAID, SELFPAY | END 2022-05-21 09:53 | disposition home or self-care (01) | PROVIDERS: PCP Nurse Practitioner; Visit Provider Urology | DX: N30.20 Other chronic cystitis without hematuria (principal); N20.0 Calculus of kidney | CPT/HCPCS: 74018; 81003; 99213 ==

== ENCOUNTER → 2022-08-18 11:00 | Outpatient (BNVA) | payer MEDICARE, MEDICAID, SELFPAY | PROVIDERS: PCP Nurse Practitioner; Visit Provider Nurse Practitioner | DX: I10 Essential (primary) hypertension (principal); E55.9 Vitamin D deficiency, unspecified; F41.1 Generalized anxiety disorder; J45.909 Unspecified asthma, uncomplicated; E03.8 Other specified hypothyroidism; R00.2 Palpitations | CPT/HCPCS: 80053; 80061; 82306; 82607; 84443 ==

== ENCOUNTER → 2022-10-15 13:19 | Outpatient (BNVA) | payer MEDICARE, MEDICAID, SELFPAY | PROVIDERS: PCP Nurse Practitioner; Visit Provider Nurse Practitioner | DX: E03.8 Other specified hypothyroidism (principal); E78.2 Mixed hyperlipidemia; I10 Essential (primary) hypertension; R73.9 Hyperglycemia, unspecified | CPT/HCPCS: 80053; 81000; 83036; 85025 ==

== ENCOUNTER → 2023-04-29 15:04 | Outpatient (BNVA) | payer MEDICARE, MEDICAID, SELFPAY | PROVIDERS: PCP Nurse Practitioner; Visit Provider Nurse Practitioner | DX: I10 Essential (primary) hypertension (principal); E03.8 Other specified hypothyroidism; E53.8 Deficiency of other specified B group vitamins; E55.9 Vitamin D deficiency, unspecified; F41.1 Generalized anxiety disorder; J45.909 Unspecified asthma, uncomplicated; R00.2 Palpitations | CPT/HCPCS: 80053; 80061; 82306; 82607; 84443 ==

== ENCOUNTER → 2023-07-16 10:32 | Outpatient (BNVA) | payer MEDICARE, MEDICAID, SELFPAY | PROVIDERS: PCP Nurse Practitioner; Visit Provider Nurse Practitioner Family | DX: L02.231 Carbuncle of abdominal wall (principal); L91.8 Other hypertrophic disorders of the skin; L72.0 Epidermal cyst; L82.1 Other seborrheic keratosis; L81.4 Other melanin hyperpigmentation; D22.5 Melanocytic nevi of trunk; B07.0 Plantar wart | CPT/HCPCS: 17000; 99203 ==

== ENCOUNTER → 2023-08-27 09:16 | Outpatient (BNVA) | payer MEDICARE, MEDICAID, SELFPAY | PROVIDERS: PCP Nurse Practitioner; Visit Provider Nurse Practitioner Family | DX: L02.231 Carbuncle of abdominal wall (principal); L02.221 Furuncle of abdominal wall | CPT/HCPCS: 11900; 99213 ==

== ENCOUNTER → 2023-10-28 12:58 | Outpatient (BNVA) | payer MEDICARE, MEDICAID, SELFPAY | PROVIDERS: PCP Nurse Practitioner; Visit Provider Nurse Practitioner | DX: I10 Essential (primary) hypertension (principal); E53.8 Deficiency of other specified B group vitamins; E55.9 Vitamin D deficiency, unspecified; E03.8 Other specified hypothyroidism; E78.2 Mixed hyperlipidemia; E61.1 Iron deficiency | CPT/HCPCS: 80053; 80061; 82306; 82607; 83540; 84443; 85025 ==

== ENCOUNTER 2023-11-12 10:53 | Outpatient (CLI) | payer MEDICARE, MEDICAID, SELFPAY ==
--- NOTE | 2023-11-12 10:59 | XR_ITS ---
WS: [id number] Exam: XR KUB [id number] Date/Time of Exam: 11/12/2023 11:18 AM Reason For Exam: Z87.442 - Personal history of urinary calculi Comparison 05/21/2022. No bowel obstruction or free air. No sign of organ enlargement. No abnormal abdominal or pelvic calci fications visualized. Unremarkable bony structures. Moderate degenerative change of the lower lumbar spine. XR/XR KUB [id number] IMPRESSION: 1. Negative KUB.
== END 2023-11-12 10:54 | disposition home or self-care (01) ==
LOC: RAD 10:54
PROVIDERS: PCP Nurse Practitioner; Visit Provider Nurse Practitioner
DX: Z87.442 Personal history of urinary calculi (principal)
CPT/HCPCS: 74018

== ENCOUNTER → 2023-11-19 10:45 | Outpatient (BNVA) | payer MEDICARE, MEDICAID, SELFPAY | PROVIDERS: PCP Nurse Practitioner; Visit Provider Nurse Practitioner Family | DX: B07.0 Plantar wart (principal); L02.231 Carbuncle of abdominal wall | CPT/HCPCS: 17110; 99213 ==

== ENCOUNTER 2023-12-28 10:36 | Outpatient (CLI) | payer MEDICARE, MEDICAID, SELFPAY ==
--- NOTE | 2023-12-28 10:40 | MM_ITS ---
WS: [id number] Bilateral screening 3D tomosynthesis digital mammogram, 12/28/2023 10:35 AM Clinical Data: SCREENING Comparison: 12/03/2021 Findings: No spiculated masses or clustered calcifications are seen. There are no secondary signs of carcinoma . MM/MM scr BI tomosynthesis [id number] Impression: Negative bilateral mammogram unchanged. Recommend annual screening mammograms. BIRADS: 1 - Negative. FOLLOW UP: 1 Year Follow-up DENSITY: The breasts are almost entirely fatty. The CAD repairer and checker was used
== END 2023-12-28 10:37 | disposition home or self-care (01) ==
LOC: MOBLMAM 10:40
PROVIDERS: PCP Nurse Practitioner; Visit Provider Nurse Practitioner
DX: Z12.31 Encounter for screening mammogram for malignant neoplasm of breast (principal)
CPT/HCPCS: 77063; 77067; 80053; 80061; 82306; 82607; 83540; 84443; 85025

== ENCOUNTER → 2024-05-01 11:33 | Outpatient (BNVA) | payer MEDICARE, MEDICAID, SELFPAY | PROVIDERS: PCP Nurse Practitioner; Visit Provider Nurse Practitioner | DX: E55.9 Vitamin D deficiency, unspecified (principal); I10 Essential (primary) hypertension; E78.2 Mixed hyperlipidemia; E03.8 Other specified hypothyroidism | CPT/HCPCS: 80053; 80061; 82306; 82607; 84443 ==

== ENCOUNTER 2024-07-31 10:40 | Inpatient (IN) | payer MEDICARE, MEDICAID, SELFPAY ==
[2024-07-31] VITALS (11 sets, daily range): BP systolic 114–137; BP diastolic 64–78; PULSE 98–112; RESP 17–22; TEMP 37.1–37.2; O2SAT 84–95; BMI 39.9
--- NOTE | 2024-07-31 10:45 | ECG_ITS ---
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 Measurements Intervals [place] Rate: 112 P: 54 UT: 142 QRS: 48 QRSD: 90 T: 17 QT: 368 QTc: 503 Interpretive Statements SINUS TACHYCARDIA NONSPECIFIC T-WAVE ABNORMALITY ABNORMAL RHYTHM ECG No previous ECG available for comparison Electronically Signed On 08-01-2024 17:51:52 CDT by Sharron Coleman M.D. [id number]
--- NOTE | 2024-07-31 10:47 | XRR_ITS ---
PROCEDURE INFORMATION: Exam: XR Chest Exam date and time: 07/31/2024 10:49 AM Age: 48 years old Clinical indication: Shortness of breath; Additional info: SOB TECHNIQUE: Imaging protocol: Radiologic exam of the chest. Views: 1 view. COMPARISON: CR XR chest 2V* [id number] 03/16/2020 3:56 PM FINDINGS: Lungs: There are hazy and patchy opacities present in the lower fredo thoraces bilaterally, findings that suggest a bilateral basilar pneumonia. Pleural spaces: Unremarkable. No pleural effusion. No pneumothorax. Heart/Mediastinum: Unremarkable. No cardiomegaly. Bones/joints: Unremarkable. XR/XR chest 1V portable [id number] IMPRESSION: Patchy and hazy opacities in the lower fredo thoraces bilaterally suggests bilateral basilar pneumonia.
[2024-07-31] MEDS: albuterol 2.5 mg/3 mL Neb 5 MG INHALATION (10:57)
--- NOTE | 2024-07-31 10:57 | ED_ITS ---
HPI - SOB/Dyspnea 2 General: Chief Complaint: Shortness of Breath/Dyspnea Stated Complaint: SOB Time Seen by Provider: 07/31/24 10:41 Source: patient and EMS Mode of arrival: EMS Limitations: no limitations History of Present Illness: HPI Narrative: 48-year-old female states that over the last 3 days she has been having increasing shortness of breath states she has had low-grade fevers along with a cough. Patient states she has had a history of asthma EMS states that she was 82% on room air they have had her on 2 L I did give her a breathing treatment she denies any pain denies any worse improving factors. Associated symptoms: Deny abdominal pain, chest pain, fever(s), nausea or vomiting Related Data Home Medications ?Medication ?Instructions ?Recorded ?Confirmed carisoprodol 350 mg tablet 350 mg PO TID PRN muscle pa in 03/27/19 06/22/24 ibuprofen 600 mg tablet 600 mg PO BID PRN 02/14/21 0 06/22/24 propranolol 20 mg tablet 10 mg PO Q12H 05/01/2406/22 Previous Rx's ?Medication ?Instructions ?Recorded clindamycin phosphate 1 % lotion 1 applic topical JOSEFINA Y #60 mL 11/06/21 bepotastine besilate 1.5 % eye 1 drp ophthalmic (eye) Q12H #5 mL 03/05/22 drops (Bepreve) albuterol sulfate 2.5 mg/3 mL 2.5 mg (3 mL) inhalation Q6H PRN 10/28/23 (0.083 %) solution for nebulization wheezing #75 mL nitrofurantoin 100 mg PO Q12H PRN urine inf ection 10/28/23 monohydrate/macrocrystals 100 mg #60 caps capsule nystatin 100,000 unit/gram topical 1 applic topical BI D #30 grams 10/28/23 cream hotnwjvo-wdoktqmzq-mlbtemotr 3.5 4 drp otic (ear) TID 10 days #10 mL 02/07/24 mg-10,000 unit/mL-1 % ear drops,susp citalopram 40 mg tablet 40 mg PO DAILY #30 tabs 04/15 10/06 docusate sodium 100 mg capsule 100 mg PO DAILY #30 cap s 05/01/24 levalbuterol tartrate 45 2 inh inhalation Q6H PRN rahat rtness 05/01/24 mcg/actuation aerosol inhaler of breath or wheezing #1 5 grams (Xopenex HFA) levocetirizine 5 mg tablet (Xyzal) 5 mg PO DAILY #30 t abs 05/01/24 levothyroxine 88 mcg tablet 88 mcg PO DAILY #30 tabs 0 05/01/24 lisinopril 20 1 tab PO DAILY #30 tabs 04/15 10/06 mg-hydrochlorothiazide 12.5 mg tablet magnesium oxide 400 mg PO BID #60 tabs 05/01 montelukast 10 mg tablet 10 mg PO DAILY #30 tabs 04/15 10/06 benzonatate 100 mg capsule 100 mg PO BID PRN cough #30 caps 06/22/24 budesonide-formoterol HFA 160 2 puff inhalation Q12H # 10.2 grams 06/22/24 mcg-4.5 mcg/actuation aerosol inhaler (Symbicort) promethazine-DM 6.25 mg-15 mg/5 mL 5 ml PO Q6H PRN cou gh #120 mL 06/22/24 oral syrup ergocalciferol (vitamin D2) 1,250 50,000 unit PO .week ly #4 caps 07/19/24 mcg (50,000 unit) capsule Allergies Allergy/AdvReac Type Severity Reaction Status Date / Time amoxicillin Allergy Severe ALGY-Anaphy Verified 06/22/24 16:08 laxis ciprofloxacin (From Cipro) Allergy Severe ALGY-Anaphy Verified 06/22/24 16:08 laxis Sulfa (Sulfonamide Allergy Severe ALGY-Anaphy Verified 06/22/24 16:08 Antibiotics) laxis bupropion (From Wellbutrin) Allergy Unknown Unknown Verified 06/22/24 16:08 diclofenac (From Voltaren) Allergy Unknown Unknown Verified 06/22/24 16:08 metaxalone (From Skelaxin) Allergy Unknown Unknown Verified 06/22/24 16:08 phenol Allergy Unknown Unknown Verified 06/22/24 16:08 propoxyphene (From Darvon) Allergy Unknown Unknown Verified 06/22/24 16:08 risperidone (From Risperdal) Allergy Unknown Unknown Verified 06/22/24 16:08 tramadol (From Ultram) Allergy Unknown Unknown Verified 06/22/24 16:08 Review of Systems 2 Const: Denies: fever(s), chills, body aches or change in appetite ENMT: Denies: throat pain or dental pain Card: Denies: chest pain Resp: Reports: dyspnea and productive cough GI: Denies: abdominal pain, nausea, vomiting or diarrhea Musc: Denies: neck pain or back pain Skin/Breast: Denies: rash Neuro: Denies: headache(s) PFSH ED 2 PFSH: Medical History Hyperlipidemia, mixed Status post extracorporeal shock wave therapy Staghorn renal calculus Family history of malignant melanoma Obesity, morbid, BMI 40.0-49.9 Palpitations with regular cardiac rhythm Allergic eye reaction Stress incontinence Chronic cystitis Asthma due to environmental allergies Anxiety, generalized Vitamin D deficiency B12 deficiency Essential (primary) hypertension Adult onset hypothyroidism Surgical History History of bladder surgery age 7 History of surgery on right wrist as a teen Family History Mother Heart trouble Father , age 82 Alzheimer disease Other Heart disease Social History Smoking and tobacco/nicotine status: current every day tobacco/nicotine user cigarettes Second hand smoke exposure: Yes Alcohol intake: never Substance/Drug Use: never Caregiver/support person: No Lives independently: Yes Household members: none Marital status: Number of children: 1 service: No Current occupational status: disabled Pets and animals: Yes Do you think of yourself as: Straight/Heterosexual Current gender identity: Female Physical Exam 2 Const: COMMON NORMALS: patient oriented x3 GENERAL APPEARANCE: in distress HENMT: COMMON NORMALS: normocephalic and atraumatic HEAD & SCALP: n ormocephalic and atraumatic Eye: COMMON NORMALS: conjunctivae normal CONJUNCTIVA: Yes conjunctivae normal Neck/C-Spine: COMMON NORMALS: full ROM and supple Chest: COMMONS NORMALS: normal inspection of the chest Resp: COMMON NORMALS: No retractions EFFORT & INSPECTION: Yes respiratory distress AUSCULTATION: rales and wheezes Cardio: COMMON NORMALS: regular rhythm and No murmurs present (Cardio) R ATE: tachycardic RHYTHM: regular rhythm Extremity: COMMON NORMALS: normal to inspection and full ROM Neuro: COMMON NORMALS: patient oriented x3, moves all extremities and no focal motor deficits Psych: COMMON NORMALS: mental status grossly normal, Normal thought process present and cooperative THOUGHT PROCESS: Normal thought process present Skin: COMMON NORMALS: no rashes or lesions noted and no wounds GENERAL SKIN EXAM: no rashes or lesions noted Course 2 Vital Signs: Vital signs: Vital Signs Temperature 98.8 F 07/31/24 10:43 Pulse Rate 108 H 07/31/24 12:34 Respiratory Rate 18 07/31/24 12:34 Blood Pressure 137/71 07/31/24 12:03 Pulse Oximetry 90 07/31/24 12:34 Oxygen Delivery Me thod Nasal Cannula 07/31/24 10:57 Oxygen Flow Rate 2 07/31/24 10:57 MDM - SOB/Dyspnea Medical Decision Making Patient presents here with shortness of breath x-ray does show pneumonia she is requiring oxygen here did start her on IV antibiotics lactate here is normal only gave her 1 L of fluids as her BNP is elevated did not receive a full sepsis bolus as she does have an elevated BNP and her blood pressures here been normal. Medical Records I reviewed the patient's medical records. Lab Data I reviewed the patient's lab results. 07/31/24 11:17 07/31/24 11:23 Labs/Radiology: Radiology Impressions Chest X-Ray 07/31/24 10:47 IMPRESSION: Patchy and hazy opacities in the lower fredo thoraces bilaterally suggests bilateral basilar pneumonia. Laboratory Results WBC 19.84 10^3/uL (3.29-11.43) H 07/31/24 11:17 RBC 4.26 10^6/uL (3.85-5.65) 07/31/24 11:17 Hgb 11.70 g/dL (11.27-16.99) 07/31/24 11:17 Hct 36.8 % (36-47) 07/31/24 11:17 MCV 86.4 fl (85-98) 07/31/24 11:17 MCH 27.5 pg (27-33) 07/31/24 11:17 MCHC 31.8 g/dL (30-55) 07/31/24 11:17 RDW 15.5 % (12.1-15.1) H 07/31/24 11:17 Plt Count 224 10^3/cmm (157-399) 07/31/24 11:17 MPV 11.0 fL (7.4-10.4) H 07/31/24 11:17 Neut % (Auto) 85.1 % 07/31/24 11:17 Lymph % (Auto) 10.1 % 07/31/24 11:17 Pierce % (Auto) 3.3 % 07/31/24 11:17 Eos % (Auto) 0.2 % 07/31/24 11:17 Baso % (Auto) 0.3 % 07/31/24 11:17 Neut # (Auto) 16.89 10^3/uL (1.8-7.7) H 07/31/24 11:17 Lymph # (Auto) 2.0 10^3/uL (0.8-4.8) 07/31/24 11:17 Pierce # (Auto) 0.7 10^3/uL (0.2-0.9) 07/31/24 11:17 Eos # (Auto) 0.0 10^3/uL (0.0-0.8) 07/31/24 11:17 Baso # (Auto) 0.1 10^3/uL (0.0-0.1) 07/31/24 11:17 Nucleated RBC % (auto) 0 % 07/31/24 11:17 Nucleated RBCs # 0.0 /100WBC 07/31/24 11:17 Specimen Type Arterial 07/31/24 11:04 Sample Site Radial, left 07/31/24 11:04 ABG pH 7.48 (7.35-7.45) H 07/31/24 11:04 ABG pCO2 31.4 mmHg (35-45) L 07/31/24 11:04 ABG pO2 54.6 mmHg (80.0-100.0) L 07/31/24 11:04 ABG PO2/FiO2 Ratio 195 07/31/24 11:04 ABG HCO3 23.2 mmol/L (22-26) 07/31/24 11:04 ABG Base Excess 0.2 mmol/L (-2.0-2.0) 07/31/24 11:04 Ritchie Test Pos 07/31/24 11:04 Hematocrit 37.3 % (37-47) 07/31/24 11:04 Hgb O2 Saturation 88.7 % (95-100) L 07/31/24 11:04 Carboxyhemoglobin 2.3 %THgb (0.4-20.1) 07/31/24 11:04 Methemoglobin 0.9 % (0.4-1.5) 07/31/24 11:04 Total Hemoglobin 12.2 g/dL (12-16) 07/31/24 11:04 O2 Delivery Device Nc 07/31/24 11:04 O2 Liters/Min 2.0 % 07/31/24 11:04 FiO2 28.0 % 07/31/24 11:04 Machine Woodworking Sander ID [place] 07/31/24 11:04 Sodium 134 mmol/L (136-145) L 07/31/24 11:23 Potassium 2.8 mmol/L (3.5-5.1) L* 07/31/24 11:23 Chloride 100 mmol/L (98-107) 07/31/24 11:23 Carbon Dioxide 21 mmol/L (22-29) L 07/31/24 11:23 Anion Gap 15.8 (5-19) 07/31/24 11:23 BUN 5 mg/dL (6-20) L 07/31/24 11:23 Creatinine 0.6 mg/dL (0.5-0.9) 07/31/24 11:23 GFR Calculation 107.6 mL/min (90-130) 07/31/24 11:23 Glucose 162 mg/dL (65-115) H 07/31/24 11:23 Calculated Osmolality 279 mOsm/kg (285-295) L 07/31/24 11:23 Lactic Acid 1.5 mmol/L (0.5-2.2) 07/31/24 11:17 Calcium 8.3 mg/dL (8.5-10.5) L 07/31/24 11:23 Total Bilirubin 1.0 mg/dL (0.15-1.2) 07/31/24 11:23 AST 25 U/L (0-32) 07/31/24 11:23 ALT 15 U/L (0-33) 07/31/24 11:23 Alkaline Phosphatase 122 U/L (35-105) H 07/31/24 11:23 NT-Pro-B Natriuret Pep 645 pg/mL (0-125) H 07/31/24 11:23 Total Protein 6.2 g/dL (6.6-8.7) L 07/31/24 11:23 Albumin 3.0 g/dL (3.5-5.2) L 07/31/24 11:23 Globulin 3.2 g/dL (1.3-4.6) 07/31/24 11:23 All radiology interpretation(s) finalized by discharge EKG Data EKG 1: I personally reviewed and interpreted this EKG as follows: EKG Interpretation Date: 07/31/24 EKG interpretation time: 10:49 Interpretation: sinus tach hr [address] or t wave abnormalities [id number] qtc [id number] Discharge Plan Discharge Patient Disposition: Admitted As Inpatient Clinical Impression: Community acquired pneumonia, Acute respiratory failure with hypoxia Condition: Stable Coding Level of Care Code ED Music Therapy Specialist for Macy Valdovinos
[2024-07-31 11:18] LABS: ABG PCO2 31.4 mmHg (35-45); ABG PH Result 7.48 (7.35-7.45); Arterial Blood Gas Hematocrit 37.3 % (37-47); Base Excess ABG 0.2 mmol/L (-2.0-2.0); Blood Gas Allen Test Pos; Blood Gas Operator Identificat MONRO; Blood Gas Sample Site Radial, left; Blood Gas Sample Type Arterial; Carboxyhemoglobin 2.3 %THgb (0.4-20.1); HCO3 ABG 23.2 mmol/L (22-26); HGB O2 Sat 88.7 % (95-100); Methemoglobin 0.9 % (0.4-1.5); Oxygen Device NC; PO2 ABG 54.6 mmHg (80.0-100.0); PO2 FiO2 Ratio Arterial Blood 195; Total Hemoglobin 12.2 g/dL (12-16)
[2024-07-31] MEDS: AZITHROMYCIN ADD-Vantage 500 MG in 0.9% NaCl ADD-Vantage 250 ML 250 MG IV (11:26)
[2024-07-31 11:32] LABS: Basophils # 0.1 10^3/uL (0.0-0.1); Basophils % 0.3 %; Eosinophils % 0.2 %; Hematocrit 36.8 % (36-47); Lymphocytes % 10.1 %; Mean Corpuscular HGB Conc 31.8 g/dL (30-55); Mean Corpuscular Hemoglobin 27.5 pg (27-33); Mean Corpuscular Volume 86.4 fl (85-98); Monocytes # 0.7 10^3/uL (0.2-0.9); Monocytes % 3.3 %; Neutrophils # 16.89 10^3/uL (1.8-7.7); Neutrophils % 85.1 %; Nucleated Red Blood Cells % 0 %; Platelet Count 224 10^3/cmm (157-399); Red Blood Count 4.26 10^6/uL (3.85-5.65); Red Cell Distribution Width 15.5 % (12.1-15.1); White Blood Count 19.84 10^3/uL (3.29-11.43)
[2024-07-31] MEDS: cefTRIAXone 1,000 mg SDV 1000 MG IVP (11:51)
[2024-07-31 12:09] LABS: Lactic Sepsis W/Reflex 1.5 mmol/L (0.5-2.2)
[2024-07-31] MEDS: sodium chloride 0.9% 1,000 ML 999 ML IV (12:26)
[2024-07-31 12:38] LABS: Alanine Aminotransferase 15 U/L (0-33); Alkaline Phosphatase 122 U/L (35-105); Anion Gap 15.8 (5-19); Aspartate Amino Transferase 25 U/L (0-32); Blood Urea Nitrogen 5 mg/dL (6-20); Calcium 8.3 mg/dL (8.5-10.5); Carbon Dioxide 21 mmol/L (22-29); Chloride 100 mmol/L (98-107); Creatinine Clr Calc Pharmacy 143.7919; Globulin 3.2 g/dL (1.3-4.6); Glomerular Filtration Rate 107.6 mL/min (90-130); Glucose 162 mg/dL (65-115); NT Pro B Type Natriuretic Pept 645 pg/mL (0-125); Osmolality Calculated 279 mOsm/kg (285-295); Sodium 134 mmol/L (136-145); Total Protein 6.2 g/dL (6.6-8.7)
[2024-07-31 12:51] LABS: Potassium 2.8 mmol/L (3.5-5.1)
[2024-07-31] MEDS: potassium chloride ER 20 mEq Tablet 40 MEQ PO ×2 (13:01→17:02)
--- NOTE | 2024-07-31 13:09 | P.HP_ITS ---
Providers/Chief Complaint 2 Admitting Physician: Milla Currie MD Primary Care Provider: Jessica Cooney, DIGITAL DESIGN ENGINEER-C Chief Complaint: SOB History of Present Illness Cynthia Ca is a 48 year old female with a history of asthma presenting with acute onset of feeling unwell since Wednesday or Wednesday night (two to three days ago). Symptoms worsened yesterday and today. She reports significant shortness of breath with any exertion and at rest, sweating, productive cough with mucus, and a raw throat. No hemoptysis noted. Cynthia had attempted self-management with Mucinex and breathing treatments (xopenex inhaler and albuterol nebulizer), which provided some relief but did not resolve symptoms. She denies fever, vomiting, diarrhea, or leg pain or swelling. The patient reports a significant headache, described as pressure across the forehead, and ear discomfort described as a sensation of water in the ears. The patient also reports a new issue with jaw clenching, which occurs off and on. The patient has a history of palpitations but no known heart disease or documented arrhythmias. These have been more prominent last couple days. Not known to have sleep apnea per prior sleep studies. Not normally on oxygen. She is a current smoker of half to one pack per day, but has not smoked in the last two days due to respiratory difficulty. The patient lives alone and has a caregiver who help out when needed and a nurse who visits every six months. That nurse visited today and noted patients oxygen levels were into 80s. EMS was called due to significant malaise and hypoxemia. She required 2L BNC en route to ED and received duoneb as well. The patient is currently requiring four liters of oxygen BNC to maintain a saturation of 92%. The patient reports difficulty ambulating over the last couple of days due to shortness of breath and fatigue. No recent changes in medications. She have chronic nexk and back pain and is on hydromorphone and soma as needed. Seasonal allergies have been difficult to manage last few weeks. She has had prior episodes of pneumonia but not required hospitalization for pneumonia previously. Review of Systems 2 General: Reports: Other (ROS as per HPI or as otherwise noted here) Const: Reports: fatigue and malaise; Denies: change in weight Card: Denies: chest pain, edema, pre-syncope or orthopnea Resp: Denies: non-productive cough, stridor, pain on inspiration or hemoptysis Musc: Reports: neck pain (chronic) and back pain (chronic); Denies: extremity pain (no leg pain or swelling) Skin/Breast: Denies: rash or sores Neuro: Reports: headache(s) (acute and chronic issue) Alberto/Lymph: Denies: easy bruising or easy bleeding Medications/Allergies Home Medications ?Medication ?Instructions ?Recorded ?Confirmed ?Last Taken ?Type carisoprodol 350 mg tablet 350 mg PO TID PRN muscle pa in 03/27/19 07/31/24 02/02/21 21:00 History citalopram 40 mg tablet 40 mg PO DAILY #30 tabs 04/1507/31/24 07/30/24 Rx levalbuterol tartrate 45 2 inh inhalation Q6H PRN rahat rtness 05/01/24 07/31/24 Unknown Rx mcg/actuation aerosol inhaler of breath or wheezing #1 5 grams (COINTERRA HFA) levocetirizine 5 mg tablet (Xyzal) 5 mg PO DAILY #30 t abs 05/01/24 07/31/24 07/30/24 Rx levothyroxine 88 mcg tablet 88 mcg PO DAILY #30 tabs 0 05/01/24 07/31/24 07/30/24 Rx lisinopril 20 1 tab PO DAILY #30 tabs 04/1507/31/24 07/30/24 Rx mg-hydrochlorothiazide 12.5 mg tablet magnesium oxide 400 mg PO BID #60 tabs 05/0107/31/24 07/31/24 Rx montelukast 10 mg tablet 10 mg PO DAILY #30 tabs 04/1507/31/24 07/30/24 Rx propranolol 20 mg tablet 10 mg PO Q12H 05/01/2407/3107/30/24 History benzonatate 100 mg capsule 100 mg PO BID PRN cough #30 caps 06/22/24 07/31/24 07/30/24 Rx promethazine-DM 6.25 mg-15 mg/5 mL 5 ml PO Q6H PRN cou gh #120 mL 06/22/24 07/31/24 Unknown Rx oral syrup ergocalciferol (vitamin D2) 1,250 50,000 unit PO .week ly #4 caps 07/19/24 07/31/24 07/28/24 Rx mcg (50,000 unit) capsule albuterol sulfate 2.5 mg/3 mL 2.5 mg inhalation Q6H SD N Wheezing 07/31/24 07/31/24 Unknown History (0.083 %) solution for nebulization budesonide-formoterol HFA 160 2 puff inhalation Q12H 0 07/31/24 07/31/24 07/30/24 History mcg-4.5 mcg/actuation aerosol inhaler (Breyna) clindamycin phosphate 1 % lotion 1 applic topical JOSEFINA Y PRN Skin 07/31/24 07/31/24 Unknown History Irritation docusate sodium 100 mg capsule 100 mg PO DAILY PRN Con stipation 07/31/24 07/31/24 Unknown History hydromorphone 4 mg tablet 4 - 8 mg PO .Q4-6H PRN Pain 07/31/24 07/31/24 07/30/24 History ibuprofen 400 mg tablet 400 mg PO Q12H PRN Pain 07/1307/31/24 Unknown History Allergies Allergy/AdvReac Type Severity Reaction Status Date / Time amoxicillin Allergy Severe ALGY-Anaphy Verified 06/22/24 16:08 laxis ciprofloxacin (From Cipro) Allergy Severe ALGY-Anaphy Verified 06/22/24 16:08 laxis Sulfa (Sulfonamide Allergy Severe ALGY-Anaphy Verified 06/22/24 16:08 Antibiotics) laxis bupropion (From Wellbutrin) Allergy Unknown Unknown Verified 06/22/24 16:08 diclofenac (From Voltaren) Allergy Unknown Unknown Verified 06/22/24 16:08 metaxalone (From Skelaxin) Allergy Unknown Unknown Verified 06/22/24 16:08 phenol Allergy Unknown Unknown Verified 06/22/24 16:08 propoxyphene (From Darvon) Allergy Unknown Unknown Verified 06/22/24 16:08 risperidone (From Risperdal) Allergy Unknown Unknown Verified 06/22/24 16:08 tramadol (From Ultram) Allergy Unknown Unknown Verified 06/22/24 16:08 PFSH Acute 2 PFSH: Medical History (Updated 07/31/24 @ 16:27 by Milla Currie MD) Right renal stone Chronic insomnia Chronic headaches 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 Spinal stenosis of lumbar region Spinal stenosis, cervical region Chronic pain neck/spine, [facility] Osteoarthritis of spine Hyperlipidemia, mixed Staghorn renal calculus gets periodic KUB to follow stones Family history of malignant melanoma Obesity, morbid, BMI 40.0-49.9 Palpitations with regular cardiac rhythm Allergic eye reaction Stress incontinence Chronic cystitis uses macrobid prn Asthma due to environmental allergies Anxiety, generalized Vitamin D deficiency B12 deficiency Essential (primary) hypertension Adult onset hypothyroidism Surgical History (Updated 07/31/24 @ 14:55 by Milla Currie MD) Status post extracorporeal shock wave therapy ESWL x 2 with stent 12/2020, subsequently removed History of bladder surgery age 7 History of surgery on right wrist as a teen Family History Mother Heart trouble Father , age 82 Alzheimer disease Other Heart disease Social History Smoking and tobacco/nicotine status: current every day tobacco/nicotine user cigarettes Second hand smoke exposure: Yes Alcohol intake: never Substance/Drug Use: never Caregiver/support person: No Lives independently: Yes Household members: none Marital status: Number of children: 1 service: No Current occupational status: disabled Pets and animals: Yes Do you think of yourself as: Straight/Heterosexual Current gender identity: Female Vitals/I&O/Wt Last Vital Signs Temp 98.8 F 07/31/24 10:43 Pulse 108 H 07/31/24 12:34 Resp 18 07/31/24 12:34 BP 137/71 07/31/24 12:03 Pulse Ox 90 07/31/24 12:34 O2 Del Method Nasal Cannula 07/31/24 10:57 O2 Flow Rate 2 07/31/24 10:57 Weight last 48 hrs Weight 108.862 kg Physical Exam 2 Narrative: Patient is awake and able to provide history though takes time. Ill-appearing and has to pause while talking to cough or take breaths frequently. Normocephalic. Extraocular movements are intact. Nasopharynx with some clear rhinorrhea. Oropharynx with dry mucosa. No erythema or exudates noted. Tympanic membranes with clear light reflex bilaterally. Excess wax noted in the left ear partially removed for visualization of the tympanic membrane. Neck is large but supple. Lungs with scattered inspiratory and expiratory wheezes throughout. Rhonchi that change with coughing at both bases. Cardiovascular exam reveals a tachycardic but regular rhythm. Pulses are 2+ and equal x 4. Abdomen is soft, nontender with positive bowel sounds. No pitting edema to bilateral lower extremities. No calf tenderness. Some bruising noted to extensor surfaces of both lower extremities. Strength is equal x 4. No abnormal movements or tremors noted. Speech is clear, face symmetric. Data 07/31/24 11:17 07/31/24 11:23 Other Labs: Radiology Impressions Chest X-Ray 07/31/24 10:47 IMPRESSION: Patchy and hazy opacities in the lower fredo thoraces bilaterally suggests bilateral basilar pneumonia. Laboratory Results WBC 19.84 10^3/uL (3.29-11.43) H 07/31/24 11:17 RBC 4.26 10^6/uL (3.85-5.65) 07/31/24 11:17 Hgb 11.70 g/dL (11.27-16.99) 07/31/24 11:17 Hct 36.8 % (36-47) 07/31/24 11:17 MCV 86.4 fl (85-98) 07/31/24 11:17 MCH 27.5 pg (27-33) 07/31/24 11:17 MCHC 31.8 g/dL (30-55) 07/31/24 11:17 RDW 15.5 % (12.1-15.1) H 07/31/24 11:17 Plt Count 224 10^3/cmm (157-399) 07/31/24 11:17 MPV 11.0 fL (7.4-10.4) H 07/31/24 11:17 Neut % (Auto) 85.1 % 07/31/24 11:17 Lymph % (Auto) 10.1 % 07/31/24 11:17 Holmes % (Auto) 3.3 % 07/31/24 11:17 Eos % (Auto) 0.2 % 07/31/24 11:17 Baso % (Auto) 0.3 % 07/31/24 11:17 Neut # (Auto) 16.89 10^3/uL (1.8-7.7) H 07/31/24 11:17 Lymph # (Auto) 2.0 10^3/uL (0.8-4.8) 07/31/24 11:17 Holmes # (Auto) 0.7 10^3/uL (0.2-0.9) 07/31/24 11:17 Eos # (Auto) 0.0 10^3/uL (0.0-0.8) 07/31/24 11:17 Baso # (Auto) 0.1 10^3/uL (0.0-0.1) 07/31/24 11:17 Nucleated RBC % (auto) 0 % 07/31/24 11:17 Nucleated RBCs # 0.0 /100WBC 07/31/24 11:17 Specimen Type Arterial 07/31/24 11:04 Sample Site Radial, left 07/31/24 11:04 ABG pH 7.48 (7.35-7.45) H 07/31/24 11:04 ABG pCO2 31.4 mmHg (35-45) L 07/31/24 11:04 ABG pO2 54.6 mmHg (80.0-100.0) L 07/31/24 11:04 ABG PO2/FiO2 Ratio 195 07/31/24 11:04 ABG HCO3 23.2 mmol/L (22-26) 07/31/24 11:04 ABG Base Excess 0.2 mmol/L (-2.0-2.0) 07/31/24 11:04 Ritchie Test Pos 07/31/24 11:04 Hematocrit 37.3 % (37-47) 07/31/24 11:04 Hgb O2 Saturation 88.7 % (95-100) L 07/31/24 11:04 Carboxyhemoglobin 2.3 %THgb (0.4-20.1) 07/31/24 11:04 Methemoglobin 0.9 % (0.4-1.5) 07/31/24 11:04 Total Hemoglobin 12.2 g/dL (12-16) 07/31/24 11:04 O2 Delivery Device Nc 07/31/24 11:04 O2 Liters/Min 2.0 % 07/31/24 11:04 FiO2 28.0 % 07/31/24 11:04 Foot Tender ID Monro 07/31/24 11:04 Sodium 134 mmol/L (136-145) L 07/31/24 11:23 Potassium 2.8 mmol/L (3.5-5.1) L* 07/31/24 11:23 Chloride 100 mmol/L (98-107) 07/31/24 11:23 Carbon Dioxide 21 mmol/L (22-29) L 07/31/24 11:23 Anion Gap 15.8 (5-19) 07/31/24 11:23 BUN 5 mg/dL (6-20) L 07/31/24 11:23 Creatinine 0.6 mg/dL (0.5-0.9) 07/31/24 11:23 GFR Calculation 107.6 mL/min (90-130) 07/31/24 11:23 Glucose 162 mg/dL (65-115) H 07/31/24 11:23 Calculated Osmolality 279 mOsm/kg (285-295) L 07/31/24 11:23 Lactic Acid 1.5 mmol/L (0.5-2.2) 07/31/24 11:17 Calcium 8.3 mg/dL (8.5-10.5) L 07/31/24 11:23 Total Bilirubin 1.0 mg/dL (0.15-1.2) 07/31/24 11:23 AST 25 U/L (0-32) 07/31/24 11:23 ALT 15 U/L (0-33) 07/31/24 11:23 Alkaline Phosphatase 122 U/L (35-105) H 07/31/24 11:23 NT-Pro-B Natriuret Pep 645 pg/mL (0-125) H 07/31/24 11:23 Total Protein 6.2 g/dL (6.6-8.7) L 07/31/24 11:23 Albumin 3.0 g/dL (3.5-5.2) L 07/31/24 11:23 Globulin 3.2 g/dL (1.3-4.6) 07/31/24 11:23 Micro: Microbiology 07/31/24 11:23 Blood Culture - Preliminary Blood SPECIMEN COLLECTED 07/31/24 11:17 Blood Culture - Preliminary Blood SPECIMEN COLLECTED A&P Assessment and plan (1) Community acquired bilateral lower lobe pneumonia: Organism currently unknown though bilateral pneumonia confirmed by clinical assessment. Symptoms include productive cough, shortness of breath, and low oxygen saturation. No hemoptysis, fever, or vomiting. High white blood cell count noted. Lactic acid not elevated. History of multiple antibiotic allergies (amoxicillin, sulfa, Cipro). PORT Score 81 with 0.9-2.8% mortality. Given degree of hypoxemia and oxygen requirement when not normally on oxygen, combined with no 24 hour support in the home, will manage in the inpatient setting. - Continue azithromycin - Has already received a dose of Rocephin and tolerated, will continue - Blood cultures have been collected - Breathing treatments as needed, to include budesonide in place of home long- acting inhaler and DuoNebs in place of home albuterol inhaler - Flutter device and incentive spirometer - Will add systemic steroids with prednisone - Wean oxygen therapy as able to room air, not on oxygen usually - Monitor clinical status closely for acute change (2) Acute respiratory failure with hypoxia: In addition to pneumonia which is apparent based on clinical history and findings today, also in the differential is a component of CHF or embolism based on degree of hypoxemia and elevated BNP and elevated Aa gradient, respectively. Untreated sleep apnea also a consideration though she did have a sleep study in 2012 that was not consistent with sleep apnea necessitating intervention. - Check limited echocardiogram to evaluate ejection fraction - Check CTA of the chest as elevated Aa gradient has persisted despite initial intervention (3) Hypokalemia: Chronically on HCTZ and has had several breathing treatments today as contributing factors. - Replace potassium both orally and via IV - Check magnesium and phosphorus levels - EKG reviewed (4) Asthma due to environmental allergies: Currently with acute exacerbation related to above - Plan as noted above under #1 - Will also continue Singulair and replace levocetirizine with cetirizine while here (5) Essential (primary) hypertension: Chronically on lisinopril/hydrochlorothiazide - Continue lisinopril but currently holding HCTZ component due to low potassium levels (6) Palpitations with regular cardiac rhythm: Chronically on propranolol which was recently decreased from 20 to 10 mg twice a day - Continue current home propranolol dosing (7) Adult onset hypothyroidism: Chronically on levothyroxine with normal TSH in April 2024 - Continue usual levothyroxine dosing (8) Anxiety, generalized: Chronically on citalopram - Continue home citalopram dosing (9) 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 Also has as needed Soma for muscle pain. - Will continue hydromorphone at 4 mg every 4 hours as needed for pain monitoring respiratory status before increasing dosage given current degree of hypoxemia - Currently holding Soma (10) Chronic insomnia: Has had prior sleep study in 2012 that did not demonstrate any evidence of sleep apnea. Chronically does not sleep well in relation to pain but may benefit from repeat sleep study particularly with current BMI levels. Has had a slight downward trend in weight since the fall of last year. - Monitor for signs and symptoms of sleep apnea while in the hospital setting (11) Chronic headaches: Has chronic headaches but also acute headaches last few days that are worse with cough located across the frontal region - Monitor headache response to ibuprofen as ordered (12) Obesity, morbid, BMI 40.0-49.9: Plan Bruxism/jaw clenching: Patient reports jaw clenching and teeth grinding, occurring off and on, possibly related to stress or underlying nerve issue. No acute intervention planned during current admission. - Address after resolution of pneumonia - Monitor for worsening symptoms Nicotine dependence: Current smoker, 7-10 cigarettes to almost a pack per day, none in last 2 days. Offered nicotine patch during hospitalization. - Initiate 14mg nicotine patch, adjust as needed - Monitor for withdrawal symptoms Elevated blood sugar without history of diabetes: - Check A1c Multiple allergies: Includes amoxicillin. - Reviewed with patient Rocephin use and monitoring with dosing and she is agreeable with plan of care Inpatient admission VTE prophylaxis: Lovenox GI Prophylaxis: PPI Antibiotics: Rocephin and azithromycin day 1 Pending studies: Blood culture, CTA of the chest, echocardiogram Telemetry: Ordered secondary to current tachycardia Priest: not currently indicated Line(s): peripheral IVs Disposition plan: Home with outpatient follow to PCP up anticipated. Anticipate continued antibiotics, possibly home oxygen. Currently has a home nurse once every 6 months and a heat curer who helps out when needed. Depending on clinical course may require short-term increase in home services. May benefit from outpatient sleep study when pneumonia resolved. Will also need to re-evaluate jaw clenching/bruxism in outpatient setting to determine need for further work up/intervention. Code Status: Full Code Supportive care otherwise Findings, concerns and plans were discussed with patient and she was given an opportunity to ask questions PDMP PDMP Reviewed: Last Reviewed 07/31/24 16:09 by Milla Currie MD Attestations 2 Medical Necessity Statement*: Anticipated stay greater than two midnights in this 48-year-old female presenting with significant hypoxemia currently requiring up to 4 L by nasal cannula. Has evidence of bilateral lower lobe pneumonia, community-acquired. Not normally on home oxygen. WBC is almost 20,000 with left shift. In addition has low potassium level, elevated Aa gradient. Plans as noted. Coding Level of Care Code 11317 High Time for a total of 80 minutes, includes reviewing past or interval history, examining/interviewing patient, placing orders, counseling patient/family/other support, discussing plan of care with staff, communicating with other healthcare providers and documenting encounter Diagnoses Community acquired bilateral lower lobe pneumonia J18.9 Acute respiratory failure with hypoxia J96.01 Hypokalemia E87.6 Asthma due to environmental allergies J45.909 Essential (primary) hypertension I10 Palpitations with regular cardiac rhythm R00.2 Adult onset hypothyroidism E03.8 Anxiety, generalized F41.1 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
[2024-07-31 15:11] LABS: ABG PCO2 31.3 mmHg (35-45); ABG PH Result 7.47 (7.35-7.45); Alveolar-Arterial Oxygen Gradi 27.4 mmHg (5-10); Arterial Blood Gas Hematocrit 35.5 % (37-47); Base Excess ABG -0.4 mmol/L (-2.0-2.0); Blood Gas Allen Test Pos; Blood Gas Operator Identificat MONRO; Blood Gas Sample Site Radial, left; Blood Gas Sample Type Arterial; Carboxyhemoglobin 1.9 %THgb (0.4-20.1); HCO3 ABG 22.6 mmol/L (22-26); HGB O2 Sat 92.7 % (95-100); Ionized Calcium Level - ABG 1.1 mmol/L (1.1-1.4); Methemoglobin 1.1 % (0.4-1.5); Oxygen Device NC; Oxygen Saturation ABG 95.6; PO2 ABG 66.8 mmHg (80.0-100.0); PO2 FiO2 Ratio Arterial Blood 148; Potassium Level - ABG 2.6 mmol/L (3.5-5.0); Total Hemoglobin 11.6 g/dL (12-16)
[2024-07-31] MEDS: ipratropium-albuterol 3 mL Neb INHALATION ×2 (15:59→20:42)
[2024-07-31 16:25] LABS: Magnesium 1.7 mg/dL (1.7-2.3)
[2024-07-31] MEDS: enoxaparin 40 mg/0.4 mL Syringe SUBCUT (17:02)
[2024-07-31] MEDS: magnesium oxide 400 mg tablet PO (17:02)
[2024-07-31] MEDS: sodium chlor 0.9% + KCl 20 mEq 20 MEQ/1,000 ML BAG 75 MEQ IV (17:05)
[2024-07-31] MEDS: potassium chloride premix 40 MEQ/100 ML PREMIX 25 MEQ IV (17:06)
--- NOTE | 2024-07-31 18:35 | PC.NURSE ---
Dr. Currie calls the floor to explain that pt k-rider and fluids are being adjusted. Pumps turned off. Will notify warehouse worker 2nd shift to expect changes to orders.
[2024-07-31] MEDS: budesonide 0.5 mg/2 mL Neb INHALATION (20:41)
[2024-07-31] MEDS: potassium phosphate (mMol PO4) 30 MMOL in sodium chloride 0.9% (100 ml) 100 ML 25 MMOL IV (23:03)
[2024-07-31] MEDS: sodium chloride 0.9% 1,000 ML 75 ML IV (23:09)
[2024-08-01] VITALS (21 sets, daily range): BP systolic 84–159; BP diastolic 52–98; PULSE 76–101; RESP 17–22; TEMP 36.8–37.2; O2SAT 87–96
--- NOTE | 2024-08-01 00:03 | PC.NURSE ---
patient in room resting in bed with eyes open. patient refused her 2100 Inderal 10mg PO due to her being nauseas and vomiting. patient refuses zofran at this time. patient pulled out her iv in her right ac space. will restart iv access.
[2024-08-01] MEDS: nicotine 14 mg Patch 1 PATCH TRANSDERMA ×2 (03:19→21:21)
[2024-08-01] MEDS: benzonatate 100 mg Capsule PO ×2 (03:48→21:07)
[2024-08-01] MEDS: ipratropium-albuterol 3 mL Neb INHALATION ×5 (03:50→20:29)
[2024-08-01 04:04] LABS: ABG PCO2 29.3 mmHg (35-45); ABG PH Result 7.51 (7.35-7.45); Arterial Blood Gas Hematocrit 32.6 % (37-47); Blood Gas Allen Test Pos; Blood Gas Operator Identificat gerca; Blood Gas Sample Site Radial, right; Blood Gas Sample Type Arterial; HCO3 ABG 23.4 mmol/L (22-26); Oxygen Device NC; PO2 ABG 56.2 mmHg (80.0-100.0)
--- NOTE | 2024-08-01 05:16 | PC.NURSE ---
patient sitting up in the bed, o2 @5l per nasal canula. patients recent ABGs are as follows: PH 7.51 up from 7.47, pco2 29.3 down from 31.3, po2 56.2 down from 66.8. Hospitalist dr izaguirre notified with no response. patient has no complaints at this time.
[2024-08-01 05:21] LABS: Basophils % 0.2 %; Eosinophils # 0.1 10^3/uL (0.0-0.8); Eosinophils % 0.5 %; Hematocrit 32.1 % (36-47); Lymphocytes # 1.7 10^3/uL (0.8-4.8); Lymphocytes % 10.8 %; Mean Corpuscular HGB Conc 32.7 g/dL (30-55); Mean Corpuscular Hemoglobin 27.2 pg (27-33); Mean Corpuscular Volume 83.2 fl (85-98); Mean Platelet Volume 9.8 fL (7.4-10.4); Monocytes # 0.7 10^3/uL (0.2-0.9); Monocytes % 4.2 %; Neutrophils # 13.05 10^3/uL (1.8-7.7); Neutrophils % 83.2 %; Nucleated Red Blood Cells % 0 %; Platelet Count 250 10^3/cmm (157-399); Red Blood Count 3.86 10^6/uL (3.85-5.65); Red Cell Distribution Width 15.2 % (12.1-15.1); White Blood Count 15.68 10^3/uL (3.29-11.43)
[2024-08-01 05:33] LABS: Estmated Average Glucose 105; Hemoglobin A1C 5.3 % (4.0-6.0)
[2024-08-01 05:57] LABS: Anion Gap 15.9 (5-19); Blood Urea Nitrogen 5 mg/dL (6-20); Calcium 8.3 mg/dL (8.5-10.5); Carbon Dioxide 21 mmol/L (22-29); Chloride 107 mmol/L (98-107); Creatinine Clr Calc Pharmacy 143.7919; Glomerular Filtration Rate 107.6 mL/min (90-130); Glucose 132 mg/dL (65-115); Magnesium 1.8 mg/dL (1.7-2.3); Osmolality Calculated 291 mOsm/kg (285-295); Phosphorus 2.1 mg/dL (2.5-4.5); Sodium 141 mmol/L (136-145)
[2024-08-01 06:20] LABS: Potassium 2.9 mmol/L (3.5-5.1)
[2024-08-01] MEDS: lidocaine 1% 5 ML in potassium chloride premix 100 ML 26.25 ML IV (07:06)
[2024-08-01] MEDS: potassium chloride ER 20 mEq Tablet 40 MEQ PO (07:06)
[2024-08-01] MEDS: magnesium oxide 400 mg tablet PO ×2 (08:23→16:07)
[2024-08-01] MEDS: lisinopril 20 mg Tablet PO (08:23)
[2024-08-01] MEDS: levothyroxine 88 mcg Tablet PO (08:23)
[2024-08-01] MEDS: montelukast sodium 10 mg Tablet PO (08:23)
[2024-08-01] MEDS: citalopram 20 mg Tablet 40 MG PO (08:23)
[2024-08-01] MEDS: predniSONE 20 mg Tablet 40 MG PO (08:23)
[2024-08-01] MEDS: pantoprazole DR 40 mg Tablet PO (08:23)
[2024-08-01] MEDS: cetirizine 10 mg Tablet PO (08:24)
[2024-08-01] MEDS: propranolol 20 mg Tablet 10 MG PO ×2 (08:26→21:07)
[2024-08-01] MEDS: budesonide 0.5 mg/2 mL Neb INHALATION ×2 (08:28→20:29)
--- NOTE | 2024-08-01 09:15 | CT_ITS ---
WS: [id number] CT CHEST TECHNIQUE: Noncontrast CT of the chest with coronal and sagittal reformatted images. CLINICAL INFORMATION: resp failure COMPARISON: None. DLP: 730.[address] scans at [facility] use at least one of these dose optimization techniques: automated exposure control; mA and/or kV adjustment per patient size (includes targeted exams where dose is matched to clinical indication); or iterative reconstruction. FINDINGS: Extensive diffuse bilateral groundglass airspace infiltrates throughout both lungs extending to the periphery. No pleural fluid. Differential considerations are broad and include viral pneumonia including COVID-19 pneumonia, hypersensitivity pneumonitis, ARDS and diffuse alveolar hemorrhage. Atypical pneumonia and fungal infections are additional considerations in particular if immunocompromised. Pulmonary edema is an additional consideration Normal caliber thoracic aorta. Few reactive anterior mediastinal and peribronchial lymph nodes. Small esophageal hiatal hernia. Adrenal glands are normal. CT/CT chest wo con [id number] IMPRESSION: Diffuse extensive groundglass and airspace infiltrates throughout both lungs ex tending to the periphery. No pleural fluid. Differential considerations describ ed above.
--- NOTE | 2024-08-01 09:15 | USCV_ITS ---
Cynthia Ca Age: 48 Gender: F : 1975 Exam Date: 08/01/2024 09:35 Ordering Phys: Cas Ewing MD Technologist: [facility] Exam Location: [facility] [place] Indication: swelling HISTORY: Lower extremity swelling. PROCEDURES: Venous duplex imaging was performed in bilateral lower extremities. The following venous structures were evaluated: common femoral vein, profunda vein, proximal portion of the greater saphenous vein, superficial femoral vein, and the popliteal vein. In addition, the posterior tibial and peroneal trunk were evaluated. FINDINGS: No evidence of DVT seen in any vessel visualized at this time. CONCLUSIONS No evidence of right lower extremity DVT. No evidence of left lower extremity DVT. Yann Lopez MD (Electronically Signed) Final Date: 01 Aug 2024 12:00 S
[2024-08-01 09:23] LABS: Erythrocyte Sedimentation Rate 73 mm/hr (0-15)
[2024-08-01 09:40] LABS: D Dimer 1.72 ug/mLFEU (0-0.59)
[2024-08-01 09:43] LABS: C Reactive Protein 287.2 mg/L (0.0-4.9)
[2024-08-01 09:50] LABS: Procalcitonin 0.31 ng/mL (0-0.5)
--- NOTE | 2024-08-01 10:07 | PC.CHAP ---
Pastoral Care Encounter/Spiritual Assessment Type of Contact [] Declined reefer engineer visit [] Patient/Family/Request visit [] Outpatient visit [] Follow-up visit [] Physician referral [] Code/Alert [x] Routine visit [] Staff referral [] Actively dying [] Patient sleeping [] Family support [] [] Out of room [] Palliative care [] [] Receiving care in room [] Pre-surgical visit [] Trauma [] Long length of stay [] ICU visit [] Other: Relational/Emotional Strength [x] Patient feels connected with others/family/visitors/staff [] Distress [] Loneliness/isolation [] Abandonment Spirituality of Patient [x] Person of Jenniffer [x] Attends Anglican of their Jenniffer [x] Believes in Prayer [x] Reads Bible or Orthodoxy materials [] There are Spiritual issues to be addressed Print Decorator Interventions [x] Prayer [x] Active listening [x] Non-anxious presence [x] Spiritual/emotional support [] Crisis/trauma care [] Spiritual counseling [] Bereavement support [] Provided bereavement packet [x] Provided Bible/devotional materials [] Provided toy/stuffed animal, coloring book to patient or family member [] Provided Communion [] Anointing/[place] [] Salvation [x] Completed spiritual assessment [] Other: Impact on Illness or Injury [] Angry [] Fearful [] Anxious [] Often cries [] Exhaustion [] Unable to work [] Unable to attend baptism [] Unable to walk/stand [] Unable to read [] Unable to drive [] Unable to eat/drink [] Unable to sleep [] Unable to be with family [] Patient intubated [] Other: Summary Time spent with patient 15 min
--- NOTE | 2024-08-01 12:42 | PC.NURSE ---
Called report to Juan in ICU prior to taking patient to ICU.
[2024-08-01] MEDS: heparin drip 25,000 UNIT/500 ML PREMIX 32 UNIT IV (12:48)
[2024-08-01] MEDS: heparin 5,000 unit/mL INJ 1 mL IVP (12:48)
[2024-08-01] MEDS: AZITHROMYCIN ADD-Vantage 500 MG in 0.9% NaCl ADD-Vantage 250 ML 250 MG IV (12:49)
[2024-08-01] MEDS: cefTRIAXone 1,000 mg SDV 1000 MG IVP (12:49)
--- NOTE | 2024-08-01 13:05 | P.PN_ITS ---
Subjective 2 Subjective: Patient was seen this morning, she is sitting up at the side of the bed, has tachypnea, shortness of breath after a few words, nasopharynx, intercostal retractions, mild suprasternal retractions, wheezing and crackles in all lung [place], in mild to moderate respiratory distress, currently on heated high flow at 40 L 50% FiO2, she does report recently going to [facility], denies any international travel, no known exposure to tuberculosis, denies any hemoptysis, no calf pain, no calf swelling, we discussed her overall goals of care, she does not want to be intubated, she tells me even if she goes into worsening respiratory failure not responding to maximal medical intervention, she rather than be put on the ventilator, discussed the morbidity of mortality of her respiratory failure, she voices understanding, all questions answered, we also discussed her CODE STATUS, she tells me she is not sure about CPR/defibrillation, we discussed risk and benefits of all options, for now she wants to continue CPR/defibrillation as her choice, but she tells me that she is going to think more on it,, 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, 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, or blood products, but is okay with expanders such as albumin Vitals/I&O/Wt Last Vital Signs Temp 98.3 F 08/01/24 11:04 Pulse 78 08/01/24 11:27 Resp 22 H 08/01/24 11:27 BP 129/84 08/01/24 11:04 Pulse Ox 95 08/01/24 11:27 O2 Del Method Heated High Flow 08/01/24 11:27 O2 Flow Rate 40 08/01/24 11:27 FiO2 50 08/01/24 11:27 07/31/24 08/01/24 08/01/24 22:59 06:59 14:59 Intake Total 35.833 / 285.833 450 / 735.833 120 / 120 Balance 35.833 / 285.833 450 / 735.833 120 / 120 Weight last 48 hrs Weight 113.398 kg Weight 108.862 kg Weight 108.862 kg Physical Exam 2 Const: COMMON NORMALS: no acute distress and patient oriented x3 Resp: COMMON NORMALS: normal respiratory effort, No retractions, No use of accessory muscles and clear to auscultation bilaterally AUSCULTATION: clear to auscultation bilaterally Cardio: COMMON NORMALS: regular rate, regular rhythm, S1 normal heart sound present and S2 normal heart sound present RATE: regular rate RHYTHM: r egular rhythm HEART SOUNDS: S1 normal heart sound present and S2 normal heart sound present GI: COMMON NORMALS: Normal to inspection, nondistended, normoactive bowel sounds present and non-tender Extremity: COMMON NORMALS: no pedal edema Neuro: COMMON NORMALS: patient oriented x3 Psych: COMMON NORMALS: mental status grossly normal Data 08/01/24 05:06 08/01/24 05:06 Micro: Microbiology 07/31/24 11:23 Blood Culture - Preliminary Blood NEGATIVE TO DATE 07/31/24 11:17 Blood Culture - Preliminary Blood NEGATIVE TO DATE A&P Assessment and plan (1) Community acquired bilateral lower lobe pneumonia: (2) Acute respiratory failure with hypoxia: (3) Hypokalemia: (4) Asthma due to environmental allergies: (5) Essential (primary) hypertension: (6) Palpitations with regular cardiac rhythm: (7) Adult onset hypothyroidism: (8) Anxiety, generalized: (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: (10) Chronic insomnia: (11) Chronic headaches: (12) Obesity, morbid, BMI 40.0-49.9: Plan Acute hypoxic respiratory failure -Secondary to pneumonia - With concerns for acute respiratory distress syndrome -With history of underlying asthma/COPD Plan - Moved to ICU - Currently on heated high flow, will consider BiPAP as needed - DuoNeb - Budesonide - Continue Rocephin - Continue Zithromycin - Solu-Medrol 40 mg IV every 8 hours - Monitor inflammatory panels - PJP PCR, QuantiFERON gold, Aspergillus, beta glucan, LDH, haptoglobin -CT chest ordered - Follow-up blood cultures - Follow-up sputum cultures - Patient is DNI Hypokalemia, replace p.o. potassium Bruxism/jaw clenching: - Monitor Nicotine dependence: Current smoker, 7-10 cigarettes to almost a pack per day, none in last 2 days. Offered nicotine patch during hospitalization. 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, okay with superintendent of schools such as albumin VTE prophylaxis: Lovenox GI Prophylaxis: PPI Telemetry: Ordered secondary to current tachycardia Priest: not currently indicated Line(s): peripheral IVs Code Status: Full Code Supportive care otherwise Findings, concerns and plans were discussed with patient and she was given an opportunity to ask questions PDMP PDMP Reviewed: Last Reviewed 08/01/24 09:16 by Cas Ewing MD Attestations 2 Medical Necessity Statement*: Patient requires hospitalization, inpatient, greater than 2 midnights, for acute hypoxic respiratory failure, with acute respiratory distress, with pneumonia, requiring ICU admission Diagnoses Community acquired bilateral lower lobe pneumonia J18.9 Acute respiratory failure with hypoxia J96.01 Hypokalemia E87.6 Asthma due to environmental allergies J45.909 Essential (primary) hypertension I10 Palpitations with regular cardiac rhythm R00.2 Adult onset hypothyroidism E03.8 Anxiety, generalized F41.1 retirement (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
--- NOTE | 2024-08-01 13:20 | PC.NURSE ---
arrived from [place] approximately 1230, transferred self to bed, AO reported improved breathing with HHF
[2024-08-01 13:48] LABS: Lactate Dehydrogenase 556 U/L (135-214)
[2024-08-01 13:57] LABS: HIV 1 & 2 Antibody Non-Reactive (Non-Reactiv); HIV 1 & 2 Antigen Non-Reactive (Non-Reactiv); Hepatitis A Antibody IgM Non-Reactive (Nonreactive); Hepatitis B Core IgM Non-Reactive (Nonreactive); Hepatitis B Surface Antigen Non-Reactive (Nonreactive); Hepatitis C Virus Antibody Non-Reactive (Nonreactive)
[2024-08-01 14:37] LABS: Adenovirus Not Detected (NOT DETECT); Chlamydia Pneumoniae Not Detected (NOT DETECT); Coronavirus 229E,HKU1,NL63,OC4 Not Detected (NOT DETECT); Human Metapneumovirus Not Detected (NOT DETECT); Human Rhinovirus/Enterovirus Not Detected (NOT DETECT); Influenza A Not Detected (NOT DETECT); Influenza A H1 Not Detected (NOT DETECT); Influenza A H1-2009 Not Detected (NOT DETECT); Influenza A H3 Not Detected (NOT DETECT); Influenza B Not Detected (NOT DETECT); Mycoplasma Pneumoniae Not Detected (NOT DETECT); Parainfluenza Virus Type 1 Not Detected (NOT DETECT); Parainfluenza Virus Type 2 Not Detected (NOT DETECT); Parainfluenza Virus Type 3 Not Detected (NOT DETECT); Parainfluenza Virus Type 4 Not Detected (NOT DETECT); Respiratory Syncytial Virus A Not Detected (NOT DETECT); Respiratory Syncytial Virus B Not Detected (NOT DETECT); SARS-COV-2 Not Detected (NOT DETECT)
--- NOTE | 2024-08-01 15:04 | USCV_ITS ---
Cynthia Ca Age: 48 Gender: F : 1975 Exam Date: 07/31/2024 23:04 Ordering Phys: Milla Currie MD Technologist: AYLIN [place] [facility] [place]: hypoxemia, SOB, elevated BNP, BMI 40, history of asthma, long-term smoker continues smoking, limited study EF only BP: 114 / 78 HR: Rhythm: Sinus Technical Quality: Adequate MEASUREMENTS (Male / Female) Normal Values 2D ECHO LV Diastolic Diameter PLAX 4.8 cm 4.2 - 5.9 / 3.9 - 5.3 cm LV Systolic Diameter PLAX 3.2 cm IVS Diastolic Thickness 1.2 cm 0.6 - 1.0 / 0.6 - 0.9 cm IVS Systolic Thickness 1.5 cm LVPW Diastolic Thickness 1.2 cm 0.6 - 1.0 / 0.6 - 0.9 cm LVPW Systolic Thickness 1.9 cm LV Ejection Fraction 2D Teich 62.4 % LV Ejection Fraction MOD 4C 63.4 % LV Ejection Fraction MOD 2C 70.0 % LV Ejection Fraction 2C AL 68.8 % FINDINGS Left Ventricle Normal left ventricular size and systolic function, EF 63%. Regional wall motion abnormalities (see diagram). Right Ventricle The right ventricle is normal in size and function. Right Atrium The right atrium is normal in size. Left Atrium Mildly increased left atrial size. Mitral Valve No gross abnormalities noted Aortic Valve The morphology could not be delineated well. No gross abnormalities noted. Tricuspid Valve The morphology could not be delineated well. Pulmonic Valve Pulmonic valve not well visualized. Pericardium No pericardial effusion. Aorta Normal aortic annulus size. IVC Inferior vena cava not visualized. CONCLUSIONS Normal left ventricular size and systolic function, EF 63%. Regional wall motion abnormalities (see diagram). Mildly increased left atrial size. No gross abnormalities of the aortic and mitral valves. There is no pericardial effusion. There are no intracardiac masses. Compared to the study from 11/15/2018, there may not be a significant change in the 2D findings except for possible mild left atrial enlargement. Dr Sharron Coleman MD [facility] (Electronically Signed) Final Date: 01 Aug 2024 07:40 S
[2024-08-01] MEDS: methylPREDNISolone sod succ 40 mg/mL INJ IVP ×2 (16:01→23:24)
[2024-08-01 19:32] LABS: Partial Thromboplastin Time 35.6 SECONDS (23.9-36.7)
[2024-08-02] VITALS (36 sets, daily range): BP systolic 126–155; BP diastolic 62–94; PULSE 67–90; RESP 19–38; TEMP 36.8–37.1; O2SAT 92–99
[2024-08-02] MEDS: ipratropium-albuterol 3 mL Neb INHALATION ×6 (00:45→20:03)
[2024-08-02 03:12] LABS: Basophils % 0.1 %; Eosinophils % 0.1 %; Hematocrit 29.7 % (36-47); Lymphocytes # 1.6 10^3/uL (0.8-4.8); Lymphocytes % 14.8 %; Mean Corpuscular Hemoglobin 26.8 pg (27-33); Mean Corpuscular Volume 83.9 fl (85-98); Mean Platelet Volume 9.2 fL (7.4-10.4); Monocytes # 0.4 10^3/uL (0.2-0.9); Monocytes % 3.2 %; Neutrophils # 8.71 10^3/uL (1.8-7.7); Neutrophils % 80.5 %; Nucleated Red Blood Cells % 0 %; Platelet Count 237 10^3/cmm (157-399); Red Blood Count 3.54 10^6/uL (3.85-5.65); Red Cell Distribution Width 15.4 % (12.1-15.1); White Blood Count 10.82 10^3/uL (3.29-11.43)
[2024-08-02 03:24] LABS: Partial Thromboplastin Time 57.6 SECONDS (23.9-36.7)
[2024-08-02 03:43] LABS: Alanine Aminotransferase 10 U/L (0-33); Albumin Level 2.8 g/dL (3.5-5.2); Alkaline Phosphatase 92 U/L (35-105); Aspartate Amino Transferase 10 U/L (0-32); Blood Urea Nitrogen 9 mg/dL (6-20); C Reactive Protein 175.6 mg/L (0.0-4.9); Calcium 8.1 mg/dL (8.5-10.5); Carbon Dioxide 19 mmol/L (22-29); Chloride 107 mmol/L (98-107); Creatinine Clr Calc Pharmacy 147.1477; Globulin 3.1 g/dL (1.3-4.6); Glomerular Filtration Rate 107.6 mL/min (90-130); Glucose 157 mg/dL (65-115); Osmolality Calculated 288 mOsm/kg (285-295); Phosphorus 2.4 mg/dL (2.5-4.5); Sodium 138 mmol/L (136-145); Total Bilirubin 0.3 mg/dL (0.15-1.2); Total Protein 5.9 g/dL (6.6-8.7)
[2024-08-02 03:55] LABS: NT Pro B Type Natriuretic Pept 3357 pg/mL (0-125); Procalcitonin 0.19 ng/mL (0-0.5)
[2024-08-02] MEDS: heparin drip 25,000 UNIT/500 ML PREMIX 32 UNIT IV (06:37)
--- NOTE | 2024-08-02 07:00 | XRR_ITS ---
PROCEDURE INFORMATION: Exam: XR Chest Exam date and time: 08/02/2024 5:57 AM Age: 48 years old Clinical indication: Shortness of breath; Additional info: SOB TECHNIQUE: Imaging protocol: Radiologic exam of the chest. Views: 1 view. COMPARISON: 1. CT chest wo con [id number] 08/01/2024 12:23 PM 2. CR XR chest 1V portable [id number] 07/31/2024 10:49 AM FINDINGS: Lungs: Slightly worsened patchy bilateral mid and lower lung zone airspace disease suspicious for pneumonia. Pleural spaces: Unremarkable. No pleural effusion. No pneumothorax. Heart/Mediastinum: Unremarkable. No cardiomegaly. Bones/joints: Unremarkable. XR/XR chest 1V portable [id number] IMPRESSION: Slightly worsened patchy bilateral mid and lower lung zone airspace disease suspicious for pneumonia.
[2024-08-02] MEDS: budesonide 0.5 mg/2 mL Neb INHALATION ×2 (07:53→20:03)
[2024-08-02] MEDS: methylPREDNISolone sod succ 40 mg/mL INJ IVP ×3 (08:08→23:08)
[2024-08-02] MEDS: levothyroxine 88 mcg Tablet PO (08:09)
[2024-08-02] MEDS: montelukast sodium 10 mg Tablet PO (08:09)
[2024-08-02] MEDS: pantoprazole DR 40 mg Tablet PO (08:09)
[2024-08-02] MEDS: citalopram 20 mg Tablet 40 MG PO (08:09)
[2024-08-02] MEDS: cetirizine 10 mg Tablet PO (08:09)
[2024-08-02] MEDS: lisinopril 20 mg Tablet PO (08:10)
[2024-08-02] MEDS: propranolol 20 mg Tablet 10 MG PO ×2 (08:10→20:41)
[2024-08-02] MEDS: magnesium oxide 400 mg tablet PO ×2 (08:10→17:04)
[2024-08-02 08:30] LABS: CENTROMERE B ANTIBODY <1.0 NEG AI (<1.0 NEG); JO-1 ANTIBODY <1.0 NEG AI (<1.0 NEG); RNP ANTIBODY <1.0 NEG AI (<1.0 NEG); SCL-70 ANTIBODY <1.0 NEG AI (<1.0 NEG); SJOGREN'S ANTIBODY (SS-A) <1.0 NEG AI (<1.0 NEG); SM ANTIBODY <1.0 NEG AI (<1.0 NEG); SS-B <1.0 NEG AI (<1.0 NEG)
[2024-08-02 08:42] LABS: Partial Thromboplastin Time 35.3 SECONDS (23.9-36.7)
[2024-08-02] MEDS: heparin 5,000 unit/mL INJ 1 mL IVP ×2 (09:02→21:51)
[2024-08-02] MEDS: AZITHROMYCIN ADD-Vantage 500 MG in 0.9% NaCl ADD-Vantage 250 ML 250 MG IV (11:54)
[2024-08-02 13:35] LABS: COMPLEMENT, TOTAL (CH50) 55 U/mL (31-60)
[2024-08-02] MEDS: cefTRIAXone 1,000 mg SDV 1000 MG IVP (13:37)
--- NOTE | 2024-08-02 14:04 | PC.SOCIAL ---
IMM Update pg 2 of IMM Updated and reviewed w/ patient. Copy provided and copy dated, initialed and placed in chart.
[2024-08-02 15:40] LABS: Partial Thromboplastin Time 59.8 SECONDS (23.9-36.7)
[2024-08-02 15:50] LABS: COMPLEMENT COMPONENT C3C 76 mg/dL (83-193); COMPLEMENT COMPONENT C4C 24 mg/dL (15-57)
--- NOTE | 2024-08-02 17:01 | P.PN_ITS ---
Subjective 2 Subjective: Patient was seen this morning, she is alert oriented x 3, following all commands she feels significantly better, and is on 50 L 50% FiO2, no fevers, no chills, discussed workup for atypicals infections, she tells me that since her insurance has changed around her inhalers none of them were covered, so she has been on possible courses of steroids for the last 6 months for her allergies, her asthma Vitals/I&O/Wt Last Vital Signs Temp 98.4 F 08/02/24 16:00 Pulse 76 08/02/24 16:00 Resp 35 H 08/02/24 16:00 BP 143/79 08/02/24 16:00 Pulse Ox 95 08/02/24 16:00 O2 Del Method Heated High Flow 08/02/24 16:00 O2 Flow Rate 50 08/02/24 16:00 FiO2 50 08/02/24 16:00 08/02/24 08/02/24 08/02/24 06:59 14:59 22:59 Intake Total 620 / 1890 682.133 / 682.133 241.733 / 923.866 Output Total 550 / 1000 Balance 70 / 890 682.133 / 682.133 241.733 / 923.866 Weight last 48 hrs Weight 113 kg Weight 113.398 kg Physical Exam 2 Const: COMMON NORMALS: no acute distress and patient oriented x3 Resp: COMMON NORMALS: normal respiratory effort, No retractions and No use of accessory muscles AUSCULTATION: crackles and wheezes Cardio: COMMON NORMALS: regular rate, regular rhythm, S1 normal heart sound present and S2 normal heart sound present RATE: regular rate RHYTHM: r egular rhythm HEART SOUNDS: S1 normal heart sound present and S2 normal heart sound present GI: COMMON NORMALS: Normal to inspection, nondistended, normoactive bowel sounds present and non-tender Extremity: COMMON NORMALS: no pedal edema Neuro: COMMON NORMALS: patient oriented x3 Psych: COMMON NORMALS: mental status grossly normal Data 08/02/24 03:07 08/02/24 03:07 Micro: Microbiology 08/02/24 10:25 Legionella Urinary Antigen - Final Urine,Clean Catch A&P Assessment and plan (1) Community acquired bilateral lower lobe pneumonia: (2) Acute respiratory failure with hypoxia: (3) Hypokalemia: (4) Asthma due to environmental allergies: (5) Essential (primary) hypertension: (6) Palpitations with regular cardiac rhythm: (7) Adult onset hypothyroidism: (8) Anxiety, generalized: (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: (10) Chronic insomnia: (11) Chronic headaches: (12) Obesity, morbid, BMI 40.0-49.9: Plan Acute hypoxic respiratory failure -Secondary to pneumonia - With concerns for acute respiratory distress syndrome -With history of underlying asthma/COPD - With concerns for underlying atypical infection Plan - Moved to ICU - Currently on heated high flow, will consider BiPAP as needed - DuoNeb - Budesonide - Continue Rocephin - Continue Zithromycin - Solu-Medrol 40 mg IV every 8 hours - Monitor inflammatory panels -ESR 73, haptoglobin 322, LDH 556, CRP 175.6 - PJP PCR, QuantiFERON gold, Aspergillus, beta glucan, fungal cultures, AFB smears -As patient is allergic to contrast, cannot do a CT angiogram of the chest to rule out pulmonary embolism, D-dimer 1.72, venous ultrasound negative for DVT, will see if patient can undergo ventilation/perfusion scan as patient is on airborne precautions for rule out for TB, nonetheless I have continued heparin drip for now given the suspicion for pulmonary embolism -However patient is developing anemia hemoglobin 9.5, 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 potassium Bruxism/jaw clenching: - Monitor Nicotine dependence: Current smoker, 7-10 cigarettes to almost a pack per day, none in last 2 days. Offered nicotine patch during hospitalization. 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 professor of biology such as albumin VTE prophylaxis: Lovenox GI Prophylaxis: PPI Telemetry: Ordered secondary to current tachycardia Priest: not currently indicated Line(s): peripheral IVs Code Status: Full Code Supportive care otherwise Findings, concerns and plans were discussed with patient and she was given an opportunity to ask questions PDMP PDMP Reviewed: Last Reviewed 08/01/24 09:16 by Cas Ewing MD Attestations 2 Medical Necessity Statement*: Patient requires hospitalization for acute hypoxic respiratory failure, with acute respiratory distress syndrome, pneumonia, atypical infection Diagnoses Community acquired bilateral lower lobe pneumonia J18.9 Acute respiratory failure with hypoxia J96.01 Hypokalemia E87.6 Asthma due to environmental allergies J45.909 Essential (primary) hypertension I10 Palpitations with regular cardiac rhythm R00.2 Adult onset hypothyroidism E03.8 Anxiety, generalized F41.1 USP (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
[2024-08-02 18:00] LABS: Basophils % 0.2 %; Eosinophils % 0.2 %; Hematocrit 31.8 % (36-47); Lymphocytes % 24.7 %; Mean Corpuscular HGB Conc 31.1 g/dL (30-55); Mean Corpuscular Hemoglobin 27.3 pg (27-33); Mean Corpuscular Volume 87.8 fl (85-98); Mean Platelet Volume 9.6 fL (7.4-10.4); Monocytes # 0.7 10^3/uL (0.2-0.9); Monocytes % 5.4 %; Neutrophils # 8.03 10^3/uL (1.8-7.7); Nucleated Red Blood Cells % 0 %; Platelet Count 266 10^3/cmm (157-399); Red Blood Count 3.62 10^6/uL (3.85-5.65); Red Cell Distribution Width 15.8 % (12.1-15.1); White Blood Count 11.98 10^3/uL (3.29-11.43)
[2024-08-02] MEDS: sucralfate 1 gm/10 mL Oral Liq UDC PO ×2 (18:06→23:08)
[2024-08-02 18:22] LABS: Ferritin 205 ng/mL (15-150); Iron 48 ug/dL (37-145); Percent Saturation 22.4 % (20-50); Total Iron Binding Capacity 214 mcg/dl; Unsaturated Iron Binding 166 ug/dL (112-347)
[2024-08-02] MEDS: pantoprazole 40 mg SDV IVP (20:41)
[2024-08-02] MEDS: heparin drip 25,000 UNIT/500 ML PREMIX 37 UNIT IV (20:51)
[2024-08-02 21:42] LABS: Partial Thromboplastin Time 49.1 SECONDS (23.9-36.7)
[2024-08-03] VITALS (55 sets, daily range): BP systolic 120–161; BP diastolic 50–105; PULSE 63–94; RESP 12–33; TEMP 36.7–36.9; O2SAT 86–99; BMI 41.1
[2024-08-03] MEDS: ipratropium-albuterol 3 mL Neb INHALATION ×7 (00:34→23:19)
[2024-08-03] MEDS: nicotine 14 mg Patch 1 PATCH TRANSDERMA (00:40)
[2024-08-03] MEDS: sucralfate 1 gm/10 mL Oral Liq UDC PO ×4 (04:15→23:25)
[2024-08-03 04:41] LABS: Basophils % 0.1 %; Eosinophils % 0.1 %; Lymphocytes # 1.9 10^3/uL (0.8-4.8); Lymphocytes % 20.5 %; Mean Corpuscular HGB Conc 31.3 g/dL (30-55); Mean Corpuscular Hemoglobin 27.4 pg (27-33); Mean Corpuscular Volume 87.7 fl (85-98); Mean Platelet Volume 9.5 fL (7.4-10.4); Monocytes # 0.3 10^3/uL (0.2-0.9); Monocytes % 3.7 %; Neutrophils # 6.69 10^3/uL (1.8-7.7); Neutrophils % 72.3 %; Nucleated Red Blood Cells % 0 %; Platelet Count 275 10^3/cmm (157-399); Red Blood Count 3.65 10^6/uL (3.85-5.65); Red Cell Distribution Width 15.5 % (12.1-15.1); White Blood Count 9.26 10^3/uL (3.29-11.43)
[2024-08-03 04:54] LABS: Partial Thromboplastin Time 59.1 SECONDS (23.9-36.7)
[2024-08-03 04:58] LABS: Alanine Aminotransferase 14 U/L (0-33); Albumin Level 2.6 g/dL (3.5-5.2); Alkaline Phosphatase 93 U/L (35-105); Anion Gap 17.1 (5-19); Aspartate Amino Transferase 14 U/L (0-32); Blood Urea Nitrogen 11 mg/dL (6-20); C Reactive Protein 61.4 mg/L (0.0-4.9); Calcium 7.9 mg/dL (8.5-10.5); Carbon Dioxide 17 mmol/L (22-29); Chloride 107 mmol/L (98-107); Creatinine Clr Calc Pharmacy 110.1399; Globulin 3.2 g/dL (1.3-4.6); Glomerular Filtration Rate 77.2 mL/min (90-130); Glucose 196 mg/dL (65-115); Osmolality Calculated 291 mOsm/kg (285-295); Phosphorus 3.4 mg/dL (2.5-4.5); Potassium 3.1 mmol/L (3.5-5.1); Sodium 138 mmol/L (136-145); Total Bilirubin 0.2 mg/dL (0.15-1.2); Total Protein 5.8 g/dL (6.6-8.7)
[2024-08-03 05:20] LABS: NT Pro B Type Natriuretic Pept 3790 pg/mL (0-125)
[2024-08-03] MEDS: pantoprazole 40 mg SDV IVP ×2 (07:49→20:29)
[2024-08-03] MEDS: methylPREDNISolone sod succ 40 mg/mL INJ IVP ×3 (07:49→23:24)
[2024-08-03] MEDS: budesonide 0.5 mg/2 mL Neb INHALATION ×2 (07:53→20:07)
[2024-08-03] MEDS: FUROsemide 10 mg/mL SDV 2mL 20 MG IVP (08:02)
[2024-08-03 08:49] LABS: THYROID PEROXIDASE ANTIBODIES 87 IU/mL (<9)
[2024-08-03] MEDS: levothyroxine 88 mcg Tablet PO (09:06)
[2024-08-03] MEDS: magnesium oxide 400 mg tablet PO ×2 (09:06→17:16)
[2024-08-03] MEDS: potassium chloride ER 20 mEq Tablet 40 MEQ PO (09:06)
[2024-08-03] MEDS: citalopram 20 mg Tablet 40 MG PO (09:06)
[2024-08-03] MEDS: cetirizine 10 mg Tablet PO (09:06)
[2024-08-03] MEDS: montelukast sodium 10 mg Tablet PO (09:06)
[2024-08-03] MEDS: lisinopril 20 mg Tablet PO (09:07)
[2024-08-03] MEDS: propranolol 20 mg Tablet 10 MG PO ×2 (09:08→20:29)
[2024-08-03] MEDS: AZITHROMYCIN ADD-Vantage 500 MG in 0.9% NaCl ADD-Vantage 250 ML 250 MG IV (12:14)
[2024-08-03] MEDS: cefTRIAXone 1,000 mg SDV 1000 MG IVP (12:14)
[2024-08-03] MEDS: water for injection-sterile 10 ML 1000 ML (12:18)
--- NOTE | 2024-08-03 12:37 | PM.PN ---
Subjective Subjective: Patient was seen this morning, currently alert oriented x 3, following all commands, on 50 L 50% heated high flow, her shortness of breath is improving, does have a cough, denies any lightheadedness, no dizziness, Vitals/I&O/Wt Last Vital Signs Temp 98.1 F 08/03/24 04:00 Pulse 71 08/03/24 11:17 Resp 18 08/03/24 11:17 BP 156/82 08/03/24 08:30 Pulse Ox 98 08/03/24 11:17 O2 Del Method Heated High Flow 08/03/24 11:17 O2 Flow Rate 50 08/03/24 11:17 FiO2 50 08/03/24 11:17 08/02/24 08/03/24 08/03/24 22:59 06:59 14:59 Intake Total 694.867 / 1377.000 520.8 / 1897.800 782.2 / 782.2 Output Total 350 / 350 1999 / 1999 Balance 344.867 / 1027.000 520.8 / 1547.800 -1217.8 / -1217.8 Weight last 48 hrs Weight 112 kg Weight 113 kg Physical Exam Const: COMMON NORMALS: no acute distress and patient oriented x3 Resp: COMMON NORMALS: normal respiratory effort, No retractions and No use of accessory muscles OTHER: Crackles and wheezing Cardio: COMMON NORMALS: regular rate, regular rhythm, S1 normal heart sound present and S2 normal heart sound present RATE: regular rate RHYTHM: regular rhythm HEART SOUNDS: S1 normal heart sound present and S2 normal heart sound present GI: COMMON NORMALS: Normal to inspection, nondistended, normoactive bowel sounds present and non-tender Extremity: COMMON NORMALS: no calf tenderness and no pedal edema Neuro: COMMON NORMALS: patient oriented x3 Psych: COMMON NORMALS: mental status grossly normal Data 08/03/24 04:33 08/03/24 04:33 Micro: Microbiology 08/02/24 19:00 Gram Stain - Final Sputum - Expectorated Sputum 08/03/24 06:13 Occult Blood (FIT) - Final Stool Routine Collection 08/02/24 10:25 Legionella Urinary Antigen - Final Urine,Clean Catch A&P Assessment and plan (1) Community acquired bilateral lower lobe pneumonia: (2) Acute respiratory failure with hypoxia: (3) Hypokalemia: (4) Asthma due to environmental allergies: (5) Essential (primary) hypertension: (6) Palpitations with regular cardiac rhythm: (7) Adult onset hypothyroidism: (8) Anxiety, generalized: (9) alf (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: (10) Chronic insomnia: (11) Chronic headaches: (12) Obesity, morbid, BMI 40.0-49.9: Plan Acute hypoxic respiratory failure -Secondary to pneumonia - With concerns for acute respiratory distress syndrome -With history of underlying asthma/COPD - With concerns for underlying atypical infection Plan - Moved to ICU - Currently on heated high flow, will consider BiPAP as needed - DuoNeb - Budesonide - Continue Rocephin - Continue Zithromycin - Solu-Medrol 40 mg IV every 8 hours - Monitor inflammatory panels -ESR 73, haptoglobin 322, LDH 556, CRP 175.6 - PJP PCR, QuantiFERON gold, Aspergillus, beta glucan, fungal cultures, AFB smears -As patient is allergic to contrast, cannot do a CT angiogram of the chest to rule out pulmonary embolism, D-dimer 1.72, venous ultrasound negative for DVT, cannot undergo ventilation/perfusion scan as patient is on airborne precautions for rule out for TB and if on heated high flow, patient had a trial of heparin drip for now given the suspicion for pulmonary embolism, however hemoglobin 9.5, Hemoccult stool positive, 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 potassium Bruxism/jaw clenching: - Monitor Nicotine dependence: Current smoker, 7-10 cigarettes to almost a pack per day, none in last 2 days. Offered nicotine patch during hospitalization. 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, okay with treating engineer such as albumin VTE prophylaxis: Lovenox GI Prophylaxis: PPI Telemetry: Ordered secondary to current tachycardia Priest: not currently indicated Line(s): peripheral IVs Code Status: Full Code Supportive care otherwise Findings, concerns and plans were discussed with patient and she was given an opportunity to ask questions Plan for today continue steroids, continue IV antibiotics, monitor hemoglobin, monitor hemodynamics, continue heated high flow, 1 dose IV Lasix PDMP PDMP Reviewed: Last Reviewed 08/01/24 09:16 by Cas Ewing MD Attestations Medical Necessity Statement*: Patient requires hospitalization for acute hypoxic respiratory failure secondary to acute respiratory distress, pneumonia, concerns for atypical infection, anemia, concerns for slow GI bleed Diagnoses Community acquired bilateral lower lobe pneumonia J18.9 Acute respiratory failure with hypoxia J96.01 Hypokalemia E87.6 Asthma due to environmental allergies J45.909 Essential (primary) hypertension I10 Palpitations with regular cardiac rhythm R00.2 Adult onset hypothyroidism E03.8 Anxiety, generalized F41.1 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
[2024-08-03 14:09] LABS: Basophils % 0.2 %; Eosinophils % 0.1 %; Hematocrit 31.6 % (36-47); Lymphocytes # 2.1 10^3/uL (0.8-4.8); Mean Corpuscular HGB Conc 32.6 g/dL (30-55); Mean Corpuscular Hemoglobin 27.3 pg (27-33); Mean Corpuscular Volume 83.8 fl (85-98); Mean Platelet Volume 9.3 fL (7.4-10.4); Monocytes # 0.5 10^3/uL (0.2-0.9); Monocytes % 4.9 %; Neutrophils # 6.97 10^3/uL (1.8-7.7); Nucleated Red Blood Cells % 0 %; Platelet Count 286 10^3/cmm (157-399); Red Blood Count 3.77 10^6/uL (3.85-5.65); Red Cell Distribution Width 15.6 % (12.1-15.1); White Blood Count 10.12 10^3/uL (3.29-11.43)
--- NOTE | 2024-08-03 14:55 | PC.NURSE ---
increased activity as tolerated today up to chair, heparin stopped per order , noted increase urine output after lasix
[2024-08-03 16:15] LABS: Quantiferon Mitogen 2.41 IU/mL; Quantiferon Nil 0.01 IU/mL; Quantiferon TB Gold NEGATIVE (NEGATIVE)
[2024-08-03 18:05] LABS: Aspergillus AG,EIA,Serum NOT DETECTED; Aspergillus Galactomannan Inde <0.50
[2024-08-03 18:05] LABS: MRSA PCR OZH (swab) NOT DETECTED (Not Detecte)
[2024-08-03 19:39] LABS: ANA SCREEN, IFA NEGATIVE (NEGATIVE)
[2024-08-04] VITALS (53 sets, daily range): BP systolic 126–169; BP diastolic 71–97; PULSE 53–83; RESP 14–31; TEMP 36.7–37.2; O2SAT 89–99
[2024-08-04] MEDS: ipratropium-albuterol 3 mL Neb INHALATION ×6 (03:32→23:47)
[2024-08-04 05:38] LABS: Basophils % 0.1 %; Hematocrit 31.6 % (36-47); Lymphocytes # 2.1 10^3/uL (0.8-4.8); Lymphocytes % 21.3 %; Mean Corpuscular HGB Conc 32.3 g/dL (30-55); Mean Corpuscular Hemoglobin 27.3 pg (27-33); Mean Corpuscular Volume 84.5 fl (85-98); Mean Platelet Volume 9.4 fL (7.4-10.4); Monocytes # 0.5 10^3/uL (0.2-0.9); Monocytes % 4.5 %; Neutrophils # 6.89 10^3/uL (1.8-7.7); Neutrophils % 69.5 %; Nucleated Red Blood Cells % 0 %; Platelet Count 322 10^3/cmm (157-399); Red Blood Count 3.74 10^6/uL (3.85-5.65); Red Cell Distribution Width 15.6 % (12.1-15.1); White Blood Count 9.92 10^3/uL (3.29-11.43)
[2024-08-04] MEDS: sucralfate 1 gm/10 mL Oral Liq UDC PO ×4 (05:56→23:55)
[2024-08-04 06:04] LABS: Alanine Aminotransferase 15 U/L (0-33); Alkaline Phosphatase 87 U/L (35-105); Aspartate Amino Transferase 10 U/L (0-32); Blood Urea Nitrogen 15 mg/dL (6-20); C Reactive Protein 23.3 mg/L (0.0-4.9); Calcium 8.2 mg/dL (8.5-10.5); Carbon Dioxide 23 mmol/L (22-29); Chloride 107 mmol/L (98-107); Creatinine Clr Calc Pharmacy 109.5851; Globulin 2.9 g/dL (1.3-4.6); Glomerular Filtration Rate 77.2 mL/min (90-130); Glucose 137 mg/dL (65-115); Magnesium 2.2 mg/dL (1.7-2.3); Osmolality Calculated 295 mOsm/kg (285-295); Phosphorus 3.8 mg/dL (2.5-4.5); Sodium 141 mmol/L (136-145); Total Bilirubin 0.2 mg/dL (0.15-1.2); Total Protein 5.9 g/dL (6.6-8.7)
[2024-08-04 06:07] LABS: NT Pro B Type Natriuretic Pept 3247 pg/mL (0-125); Procalcitonin 0.07 ng/mL (0-0.5)
[2024-08-04] MEDS: budesonide 0.5 mg/2 mL Neb INHALATION ×2 (07:37→20:04)
[2024-08-04] MEDS: enoxaparin 40 mg/0.4 mL Syringe SUBCUT (08:53)
[2024-08-04] MEDS: methylPREDNISolone sod succ 40 mg/mL INJ IVP ×3 (08:54→23:55)
[2024-08-04] MEDS: pantoprazole 40 mg SDV IVP ×2 (08:54→21:47)
[2024-08-04] MEDS: montelukast sodium 10 mg Tablet PO (09:04)
[2024-08-04] MEDS: cetirizine 10 mg Tablet PO (09:04)
[2024-08-04] MEDS: lisinopril 20 mg Tablet PO (09:04)
[2024-08-04] MEDS: magnesium oxide 400 mg tablet PO ×2 (09:04→17:12)
[2024-08-04] MEDS: levothyroxine 88 mcg Tablet PO (09:05)
[2024-08-04] MEDS: citalopram 20 mg Tablet 40 MG PO (09:05)
[2024-08-04] MEDS: propranolol 20 mg Tablet 10 MG PO ×2 (09:37→21:47)
[2024-08-04] MEDS: AZITHROMYCIN ADD-Vantage 500 MG in 0.9% NaCl ADD-Vantage 250 ML 250 MG IV (11:50)
[2024-08-04] MEDS: cefTRIAXone 1,000 mg SDV 1000 MG IVP (13:48)
--- NOTE | 2024-08-04 14:16 | PC.SOCIAL ---
IMM Update pg 2 of IMM Updated and reviewed w/ patient. Copy provided and copy dated, initialed and placed in chart.
--- NOTE | 2024-08-04 14:19 | P.PN_ITS ---
Subjective 2 Subjective: Patient was seen this morning, currently alert oriented x 3, following all commands, no fevers, no chills, no cough she is down to 30 L, 30% FiO2 Vitals/I&O/Wt Last Vital Signs Temp 98.1 F 08/04/24 04:00 Pulse 61 08/04/24 12:00 Resp 19 H 08/04/24 12:00 BP 155/79 08/04/24 12:00 Pulse Ox 90 08/04/24 12:00 O2 Del Method Heated High Flow 08/04/24 12:00 O2 Flow Rate 30 08/04/24 12:00 FiO2 29 08/04/24 12:00 08/03/24 08/04/24 08/04/24 22:59 06:59 14:59 Intake Total 590 / 1932.2 240 / 2172.2 1000 / 1000 Output Total 400 / 2950 850 / 850 Balance 190 / -1017.8 240 / -777.8 150 / 150 Weight last 48 hrs Weight 111.5 kg Weight 112 kg Physical Exam 2 Const: COMMON NORMALS: no acute distress and patient oriented x3 Resp: COMMON NORMALS: normal respiratory effort, No retractions and No use of accessory muscles AUSCULTATION: wheezes Cardio: COMMON NORMALS: regular rate, regular rhythm, S1 normal heart sound present and S2 normal heart sound present RATE: regular rate RHYTHM: r egular rhythm HEART SOUNDS: S1 normal heart sound present and S2 normal heart sound present GI: COMMON NORMALS: Normal to inspection, nondistended, normoactive bowel sounds present and non-tender Extremity: COMMON NORMALS: no pedal edema Neuro: COMMON NORMALS: patient oriented x3 Psych: COMMON NORMALS: mental status grossly normal Data 08/04/24 04:59 08/04/24 04:59 Micro: Microbiology 08/02/24 19:00 Gram Stain - Final Sputum - Expectorated Sputum Sputum Culture - Final A&P Assessment and plan (1) Community acquired bilateral lower lobe pneumonia: (2) Acute respiratory failure with hypoxia: (3) Hypokalemia: (4) Asthma due to environmental allergies: (5) Essential (primary) hypertension: (6) Palpitations with regular cardiac rhythm: (7) Adult onset hypothyroidism: (8) Anxiety, generalized: (9) MCFP (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: (10) Chronic insomnia: (11) Chronic headaches: (12) Obesity, morbid, BMI 40.0-49.9: Plan Acute hypoxic respiratory failure -Secondary to pneumonia - With concerns for acute respiratory distress syndrome -With history of underlying asthma/COPD - With concerns for underlying atypical infection Plan - Moved to ICU - Currently on heated high flow, will consider BiPAP as needed - DuoNeb - Budesonide - Continue Rocephin - Continue Zithromycin - Solu-Medrol 40 mg IV every 8 hours - Monitor inflammatory panels -ESR 73, haptoglobin 322, LDH 556, CRP 175.6 - PJP PCR, QuantiFERON gold, Aspergillus, beta glucan, fungal cultures, AFB smears -As patient is allergic to contrast, cannot do a CT angiogram of the chest to rule out pulmonary embolism, D-dimer 1.72, venous ultrasound negative for DVT, cannot undergo ventilation/perfusion scan as patient is on airborne precautions for rule out for TB and if on heated high flow, patient had a trial of heparin drip for now given the suspicion for pulmonary embolism, however hemoglobin 9.5, Hemoccult stool positive, given that patient is a Christianity and does not accept blood products, there is a concern for slow GI bleed, for now heparin drip has been held -However patient is developing anemia hemoglobin 9.5, she is a Christianity, has mild iron deficiency, heparin drip has been held - Follow-up blood cultures - Follow-up sputum cultures - Patient is DNI Acute anemia, concerns for slow GI bleed, monitor hemoglobin, iron studies, Hemoccult stool is positive, patient is a Christianity and does not accept blood products, continue Protonix, continue Carafate Hypokalemia, replace p.o. potassium Bruxism/jaw clenching: - Monitor Nicotine dependence: Current smoker, 7-10 cigarettes to almost a pack per day, none in last 2 days. Offered nicotine patch during hospitalization. Elevated blood sugar without history of diabetes: - Check A1c 5.3 Christianity, declines blood products, okay with vallez filter operator such as albumin VTE prophylaxis: Lovenox GI Prophylaxis: PPI Telemetry: Ordered secondary to current tachycardia Priest: not currently indicated Line(s): peripheral IVs Code Status: Full Code Supportive care otherwise Findings, concerns and plans were discussed with patient and she was given an opportunity to ask questions Plan for today continue steroids, continue IV antibiotics, monitor hemoglobin, monitor hemodynamics, continue heated high flow, 1 dose IV Lasix PDMP PDMP Reviewed: Last Reviewed 08/01/24 09:16 by Cas Ewing MD Attestations 2 Medical Necessity Statement*: Patient requires hospitalization for acute hypoxic respiratory failure, secondary to acute respiratory distress syndrome, pneumonia Diagnoses Community acquired bilateral lower lobe pneumonia J18.9 Acute respiratory failure with hypoxia J96.01 Hypokalemia E87.6 Asthma due to environmental allergies J45.909 Essential (primary) hypertension I10 Palpitations with regular cardiac rhythm R00.2 Adult onset hypothyroidism E03.8 Anxiety, generalized 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
[2024-08-04] MEDS: FUROsemide 10 mg/mL SDV 2mL 20 MG IVP (17:05)
--- NOTE | 2024-08-04 17:59 | PC.NURSE ---
Shift summary: Pt improving. She stated she is feeling better. Her activity tolerance has increased. Sinus rhythm noted on monitor. Pt's O2 needs ahve decreased .. She started the shift off on HHF 40 L and 40%, she is now utilizing 9 lpm/HFNC. She is able to get out of bed to chair or BSC without becoming short of breath. She has a good appetite, eating at least half of her meals. She admits to being super picky about her food. No reports of pain this shift. She is still on her menstrual cycle. At least 1200ml of urinary out put. Large bowel movement noted this shift.
[2024-08-04 20:15] LABS: Fungitell 1-3-B Glucan Assay <31 pg/mL (<60); Interpretation Negative (Negative)
[2024-08-04 20:54] LABS: Histoplasma Galactomannan Ag <0.2 ng/mL
[2024-08-04] MEDS: nicotine 14 mg Patch 1 PATCH TRANSDERMA (21:48)
[2024-08-05] VITALS (148 sets, daily range): BP systolic 115–170; BP diastolic 46–102; PULSE 52–87; RESP 10–30; TEMP 36.4–37.1; O2SAT 87–100
[2024-08-05 01:44] LABS: DNA AB (DS) CRITHIDIA,IFA NEGATIVE (NEGATIVE)
[2024-08-05] MEDS: ipratropium-albuterol 3 mL Neb INHALATION ×6 (04:30→23:48)
[2024-08-05 05:08] LABS: Basophils % 0.2 %; Eosinophils % 0.1 %; Hematocrit 33.7 % (36-47); Lymphocytes # 2.5 10^3/uL (0.8-4.8); Mean Corpuscular HGB Conc 32.3 g/dL (30-55); Mean Corpuscular Hemoglobin 27.3 pg (27-33); Mean Corpuscular Volume 84.3 fl (85-98); Mean Platelet Volume 9.5 fL (7.4-10.4); Monocytes # 0.6 10^3/uL (0.2-0.9); Monocytes % 4.8 %; Neutrophils # 8.76 10^3/uL (1.8-7.7); Neutrophils % 69.9 %; Nucleated Red Blood Cells % 0 %; Platelet Count 341 10^3/cmm (157-399); Red Cell Distribution Width 15.3 % (12.1-15.1); White Blood Count 12.52 10^3/uL (3.29-11.43)
[2024-08-05 05:32] LABS: Alanine Aminotransferase 16 U/L (0-33); Albumin Level 3.3 g/dL (3.5-5.2); Alkaline Phosphatase 85 U/L (35-105); Anion Gap 17.1 (5-19); Aspartate Amino Transferase 10 U/L (0-32); Blood Urea Nitrogen 14 mg/dL (6-20); C Reactive Protein 11.3 mg/L (0.0-4.9); Calcium 8.2 mg/dL (8.5-10.5); Carbon Dioxide 23 mmol/L (22-29); Chloride 104 mmol/L (98-107); Globulin 2.2 g/dL (1.3-4.6); Glomerular Filtration Rate 90.1 mL/min (90-130); Glucose 149 mg/dL (65-115); Osmolality Calculated 293 mOsm/kg (285-295); Potassium 4.1 mmol/L (3.5-5.1); Sodium 140 mmol/L (136-145); Total Bilirubin 0.2 mg/dL (0.15-1.2); Total Protein 5.5 g/dL (6.6-8.7)
[2024-08-05 05:34] LABS: NT Pro B Type Natriuretic Pept 3039 pg/mL (0-125)
[2024-08-05] MEDS: sucralfate 1 gm/10 mL Oral Liq UDC PO ×4 (05:48→22:06)
--- NOTE | 2024-08-05 07:00 | XRR_ITS ---
PROCEDURE INFORMATION: Exam: XR Chest Exam date and time: 08/05/2024 8:12 AM Age: 48 years old Clinical indication: Shortness of breath; Additional info: SOB TECHNIQUE: Imaging protocol: Radiologic exam of the chest. Views: 1 view. COMPARISON: CR (CHEST, ) 08/02/2024 5:57 AM FINDINGS: Lungs: Unremarkable. No consolidation. Pleural spaces: Unremarkable. No pleural effusion. No pneumothorax. Heart/Mediastinum: Unremarkable. No cardiomegaly. Bones/joints: Unremarkable. Improved but persistent bilateral lower lobe infiltrates. Mild basilar interstitial prominence, improved cardiac decompensation. Cardiomegaly and uncoiling of the thoracic aorta is accentuated by the AP positioning. XR/XR chest 1V portable [id number] IMPRESSION: Improved but persistent pulmonary infiltrates, CHF versus pneumonia.
[2024-08-05] MEDS: budesonide 0.5 mg/2 mL Neb INHALATION ×2 (07:50→19:53)
[2024-08-05] MEDS: pantoprazole 40 mg SDV IVP ×2 (08:20→19:50)
[2024-08-05] MEDS: propranolol 20 mg Tablet 10 MG PO ×2 (08:21→19:49)
[2024-08-05] MEDS: lisinopril 20 mg Tablet PO (08:21)
[2024-08-05] MEDS: levothyroxine 88 mcg Tablet PO (08:21)
[2024-08-05] MEDS: enoxaparin 40 mg/0.4 mL Syringe SUBCUT (08:21)
[2024-08-05] MEDS: montelukast sodium 10 mg Tablet PO (08:21)
[2024-08-05] MEDS: cetirizine 10 mg Tablet PO (08:21)
[2024-08-05] MEDS: magnesium oxide 400 mg tablet PO ×2 (08:21→17:23)
[2024-08-05] MEDS: citalopram 20 mg Tablet 40 MG PO (08:21)
[2024-08-05] MEDS: methylPREDNISolone sod succ 40 mg/mL INJ IVP (08:22)
[2024-08-05] MEDS: FUROsemide 10 mg/mL SDV 2mL 20 MG IVP (10:53)
[2024-08-05] MEDS: cefTRIAXone 1,000 mg SDV 1000 MG IVP (12:03)
[2024-08-05] MEDS: AZITHROMYCIN ADD-Vantage 500 MG in 0.9% NaCl ADD-Vantage 250 ML 250 MG IV (12:03)
--- NOTE | 2024-08-05 14:24 | P.PN_ITS ---
Subjective 2 Subjective: Patient was seen this morning, she is alert awake, following all commands is on nasal cannula, her breathing is improving Vitals/I&O/Wt Last Vital Signs Temp 98.6 F 08/05/24 13:27 Pulse 74 08/05/24 14:00 Resp 19 H 08/05/24 14:00 BP 134/65 08/05/24 14:00 Pulse Ox 94 08/05/24 14:00 O2 Del Method Nasal Cannula 08/05/24 14:00 O2 Flow Rate 2 08/05/24 11:33 FiO2 29 08/04/24 15:00 08/04/24 08/05/24 08/05/24 22:59 06:59 14:59 Intake Total 930 / 2230 0 / 2230 650 / 650 Output Total 2450 / 3300 1000 / 1000 Balance -1520 / -1070 0 / -1070 -350 / -350 Weight last 48 hrs Weight 109 kg Weight 111.5 kg Physical Exam 2 Const: COMMON NORMALS: no acute distress and patient oriented x3 Resp: COMMON NORMALS: normal respiratory effort, No retractions, No use of accessory muscles and clear to auscultation bilaterally AUSCULTATION: clear to auscultation bilaterally Cardio: COMMON NORMALS: regular rate, regular rhythm, S1 normal heart sound present and S2 normal heart sound present RATE: regular rate RHYTHM: r egular rhythm HEART SOUNDS: S1 normal heart sound present and S2 normal heart sound present GI: COMMON NORMALS: Normal to inspection, nondistended, normoactive bowel sounds present and non-tender Extremity: COMMON NORMALS: no pedal edema Neuro: COMMON NORMALS: patient oriented x3 Psych: COMMON NORMALS: mental status grossly normal Data 08/05/24 04:54 08/05/24 04:54 Micro: Microbiology 07/31/24 11:23 Blood Culture - Final Blood NO GROWTH AFTER 5 DAYS 07/31/24 11:17 Blood Culture - Final Blood NO GROWTH AFTER 5 DAYS 08/02/24 19:00 Gram Stain - Final Sputum - Expectorated Sputum Sputum Culture - Final A&P Assessment and plan (1) Community acquired bilateral lower lobe pneumonia: (2) Acute respiratory failure with hypoxia: (3) Hypokalemia: (4) Asthma due to environmental allergies: (5) Essential (primary) hypertension: (6) Palpitations with regular cardiac rhythm: (7) Adult onset hypothyroidism: (8) Anxiety, generalized: (9) [facility] (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: (10) Chronic insomnia: (11) Chronic headaches: (12) Obesity, morbid, BMI 40.0-49.9: Plan Acute hypoxic respiratory failure -Secondary to pneumonia - With concerns for acute respiratory distress syndrome -With history of underlying asthma/COPD - With concerns for underlying atypical infection - Now on nasal cannula Plan - Moved to medical floors - DuoNeb - Budesonide - Continue Rocephin - Continue Zithromycin - De-escalate to prednisone - Monitor inflammatory panels -ESR 73, haptoglobin 322, LDH 556, CRP 175.6 - PJP PCR, QuantiFERON gold, Aspergillus, beta glucan, fungal cultures, AFB smears -As patient is allergic to contrast, cannot do a CT angiogram of the chest to rule out pulmonary embolism, D-dimer 1.72, venous ultrasound negative for DVT, cannot undergo ventilation/perfusion scan as patient is on airborne precautions for rule out for TB and if on heated high flow, patient had a trial of heparin drip for now given the suspicion for pulmonary embolism, however hemoglobin 9.5, Hemoccult stool positive, given that patient is a Oriental orthodox and does not accept blood products, there is a concern for slow GI bleed, for now heparin drip has been stopped, on DVT prophylaxis Lovenox -However patient is developing anemia hemoglobin 9.5, she is a Oriental orthodox, has mild iron deficiency, heparin drip has been held, on DVT prophylaxis Lovenox - Follow-up blood cultures - Follow-up sputum cultures - Patient is DNI Acute anemia, concerns for slow GI bleed, monitor hemoglobin, iron studies, Hemoccult stool is positive, patient is a Oriental orthodox and does not accept blood products, continue Protonix, continue Carafate Hypokalemia, replace p.o. potassium Bruxism/jaw clenching: - Monitor Nicotine dependence: Current smoker, 7-10 cigarettes to almost a pack per day, none in last 2 days. Offered nicotine patch during hospitalization. Elevated blood sugar without history of diabetes: - Check A1c 5.3 Oriental orthodox, declines blood products, okay with blindstitch hemmer such as albumin VTE prophylaxis: Lovenox GI Prophylaxis: PPI Telemetry: Ordered secondary to current tachycardia Priest: not currently indicated Line(s): peripheral IVs Code Status: Full Code Supportive care otherwise Findings, concerns and plans were discussed with patient and she was given an opportunity to ask questions Plan for today continue IV antibiotics, de-escalate steroids IV Lasix moved to medical floors PDMP PDMP Reviewed: Last Reviewed 08/01/24 09:16 by Cas Ewing MD Attestations 2 Medical Necessity Statement*: Patient requires hospitalization for acute hypoxic respiratory failure Diagnoses Community acquired bilateral lower lobe pneumonia J18.9 Acute respiratory failure with hypoxia J96.01 Hypokalemia E87.6 Asthma due to environmental allergies J45.909 Essential (primary) hypertension I10 Palpitations with regular cardiac rhythm R00.2 Adult onset hypothyroidism E03.8 Anxiety, generalized F41.1 [facility] (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
--- NOTE | 2024-08-05 18:04 | PC.NURSE ---
Shift Note: Patient AOX4, ambulates without assistance, eating 100% of meals and snacks in-between. RT weaned to room air. Patient reports overall feeling well today, however does report feeling anxious about discharge. Patient provided with set up for self bath, new bedding and gown placed. 1400ml urine output. Tolerates activity well.
[2024-08-05 18:45] LABS: Coccidioides IgG Antibody NEGATIVE; Coccidioides IgM Antibody NEGATIVE
[2024-08-05] MEDS: nicotine 14 mg Patch 1 PATCH TRANSDERMA (19:49)
[2024-08-05] MEDS: nicotine 21 mg Patch 1 PATCH TRANSDERMA (20:30)
--- NOTE | 2024-08-05 20:30 | PC.NURSE ---
Order for nicotine patch changed. Removed 14mg from left shoulder and replaced with 21mg
[2024-08-06] VITALS (542 sets, daily range): BP systolic 115–192; BP diastolic 57–100; PULSE 58–101; RESP 10–97; TEMP 36.8–37.2; O2SAT 81–100
[2024-08-06] MEDS: ipratropium-albuterol 3 mL Neb INHALATION ×6 (03:55→23:49)
[2024-08-06] MEDS: sucralfate 1 gm/10 mL Oral Liq UDC PO ×4 (04:21→23:03)
[2024-08-06 05:21] LABS: Basophils % 0.3 %; Eosinophils # 0.2 10^3/uL (0.0-0.8); Eosinophils % 1.1 %; Hematocrit 34.7 % (36-47); Lymphocytes # 5.7 10^3/uL (0.8-4.8); Mean Corpuscular Hemoglobin 27.4 pg (27-33); Mean Corpuscular Volume 85.7 fl (85-98); Mean Platelet Volume 9.3 fL (7.4-10.4); Monocytes # 0.8 10^3/uL (0.2-0.9); Neutrophils # 7.86 10^3/uL (1.8-7.7); Neutrophils % 51.3 %; Nucleated Red Blood Cells % 0 %; Platelet Count 351 10^3/cmm (157-399); Red Blood Count 4.05 10^6/uL (3.85-5.65); Red Cell Distribution Width 15.4 % (12.1-15.1); White Blood Count 15.31 10^3/uL (3.29-11.43)
[2024-08-06 05:45] LABS: Alanine Aminotransferase 15 U/L (0-33); Albumin Level 2.9 g/dL (3.5-5.2); Alkaline Phosphatase 86 U/L (35-105); Blood Urea Nitrogen 15 mg/dL (6-20); C Reactive Protein 4.9 mg/L (0.0-4.9); Calcium 7.8 mg/dL (8.5-10.5); Carbon Dioxide 25 mmol/L (22-29); Chloride 101 mmol/L (98-107); Creatinine Clr Calc Pharmacy 125.2635; Globulin 2.5 g/dL (1.3-4.6); Glomerular Filtration Rate 90.1 mL/min (90-130); Glucose 87 mg/dL (65-115); Osmolality Calculated 290 mOsm/kg (285-295); Sodium 140 mmol/L (136-145); Total Bilirubin 0.2 mg/dL (0.15-1.2); Total Protein 5.4 g/dL (6.6-8.7)
[2024-08-06 05:47] LABS: Anion Gap 17.3 (5-19); Aspartate Amino Transferase 16 U/L (0-32); Potassium 3.3 mmol/L (3.5-5.1)
[2024-08-06 05:50] LABS: NT Pro B Type Natriuretic Pept 1044 pg/mL (0-125)
[2024-08-06] MEDS: enoxaparin 40 mg/0.4 mL Syringe SUBCUT (07:52)
[2024-08-06] MEDS: lisinopril 20 mg Tablet PO (08:00)
[2024-08-06] MEDS: levothyroxine 88 mcg Tablet PO (08:00)
[2024-08-06] MEDS: montelukast sodium 10 mg Tablet PO (08:00)
[2024-08-06] MEDS: cetirizine 10 mg Tablet PO (08:00)
[2024-08-06] MEDS: magnesium oxide 400 mg tablet PO ×2 (08:00→17:36)
[2024-08-06] MEDS: propranolol 20 mg Tablet 10 MG PO ×2 (08:00→21:25)
[2024-08-06] MEDS: nicotine 21 mg Patch 1 PATCH TRANSDERMA (08:01)
[2024-08-06] MEDS: pantoprazole 40 mg SDV IVP ×2 (08:01→21:24)
[2024-08-06] MEDS: predniSONE 20 mg Tablet 40 MG PO (08:01)
[2024-08-06] MEDS: citalopram 20 mg Tablet 40 MG PO (08:01)
[2024-08-06] MEDS: budesonide 0.5 mg/2 mL Neb INHALATION ×2 (08:48→19:52)
--- NOTE | 2024-08-06 15:27 | P.PN_ITS ---
Subjective 2 Subjective: Patient was seen this morning, currently alert oriented x 3, following all commands, she does report shortness of breath with exertion, is afebrile, on room air, does have a cough Vitals/I&O/Wt Last Vital Signs Temp 98.9 F 08/06/24 13:24 Pulse 78 08/06/24 15:24 Resp 16 08/06/24 15:20 BP 115/82 08/06/24 14:20 Pulse Ox 92 08/06/24 15:20 O2 Del Method Room Air 08/06/24 15:20 O2 Flow Rate 1 08/05/24 15:15 FiO2 29 08/04/24 15:00 08/06/24 08/06/24 08/06/24 06:59 14:59 22:59 Intake Total 600 / 600 Output Total 500 / 2150 Balance -500 / -650 600 / 600 Weight last 48 hrs Weight 112.037 kg Weight 109 kg Physical Exam 2 Const: COMMON NORMALS: no acute distress and patient oriented x3 Resp: COMMON NORMALS: normal respiratory effort, No retractions, No use of accessory muscles and clear to auscultation bilaterally AUSCULTATION: clear to auscultation bilaterally Cardio: COMMON NORMALS: regular rate, regular rhythm, S1 normal heart sound present and S2 normal heart sound present RATE: regular rate RHYTHM: r egular rhythm HEART SOUNDS: S1 normal heart sound present and S2 normal heart sound present GI: COMMON NORMALS: Normal to inspection, nondistended, normoactive bowel sounds present Extremity: COMMON NORMALS: no pedal edema Neuro: COMMON NORMALS: patient oriented x3 Psych: COMMON NORMALS: mental status grossly normal Data 08/06/24 05:08 08/06/24 05:08 Micro: Microbiology 08/04/24 09:46 Mycobacterial Smear - Preliminary Sputum - Expectorated Sputum 08/02/24 19:00 Mycobacterial Smear - Preliminary Sputum - Expectorated Sputum 08/02/24 19:00 Fungal Smear - Preliminary Sputum - Expectorated Sputum 07/31/24 11:23 Blood Culture - Final Blood NO GROWTH AFTER 5 DAYS 07/31/24 11:17 Blood Culture - Final Blood NO GROWTH AFTER 5 DAYS A&P Assessment and plan (1) Community acquired bilateral lower lobe pneumonia: (2) Acute respiratory failure with hypoxia: (3) Hypokalemia: (4) Asthma due to environmental allergies: (5) Essential (primary) hypertension: (6) Palpitations with regular cardiac rhythm: (7) Adult onset hypothyroidism: (8) Anxiety, generalized: (9) 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: (10) Chronic insomnia: (11) Chronic headaches: (12) Obesity, morbid, BMI 40.0-49.9: Plan Acute hypoxic respiratory failure -Secondary to pneumonia - With concerns for acute respiratory distress syndrome -With history of underlying asthma/COPD - With concerns for underlying atypical infection - Now on nasal cannula Plan - Orders placed to move to medical floors - DuoNeb - Budesonide - Continue Rocephin day 5 of 5 - Continue Zithromycin day 5 of 5 - De-escalate to prednisone 40 mg daily - Monitor inflammatory panels -ESR 73, haptoglobin 322, LDH 556, CRP 175.6 - PJP PCR, QuantiFERON gold, Aspergillus, beta glucan, fungal cultures, AFB smears -As patient is allergic to contrast, cannot do a CT angiogram of the chest to rule out pulmonary embolism, D-dimer 1.72, venous ultrasound negative for DVT, cannot undergo ventilation/perfusion scan as patient is on airborne precautions for rule out for TB and if on heated high flow, patient had a trial of heparin drip for now given the suspicion for pulmonary embolism, however hemoglobin 9.5, Hemoccult stool positive, given that patient is a Restorationism and does not accept blood products, there is a concern for slow GI bleed, for now heparin drip has been stopped, on DVT prophylaxis Lovenox -However patient is developing anemia hemoglobin 9.5, she is a Restorationism, has mild iron deficiency, heparin drip has been held, on DVT prophylaxis Lovenox - Follow-up blood cultures, so far no growth - Follow-up sputum cultures, so far no growth -PJP PCR pending -QuantiFERON gold negative, initial AFB smears negative so far -Take off isolation precautions -Status post 3 doses of Lasix, hold off for today - Patient is DNI Acute anemia, concerns for slow GI bleed, monitor hemoglobin, iron studies, Hemoccult stool is positive, patient is a Restorationism and does not accept blood products, continue Protonix, continue Carafate Hypokalemia, replace p.o. potassium Bruxism/jaw clenching: - Monitor Nicotine dependence: Current smoker, 7-10 cigarettes to almost a pack per day, none in last 2 days. Offered nicotine patch during hospitalization. Elevated blood sugar without history of diabetes: - Check A1c 5.3 Restorationism, declines blood products, okay with pipe fittings molder such as albumin VTE prophylaxis: Lovenox GI Prophylaxis: PPI Telemetry: Ordered secondary to current tachycardia Priest: not currently indicated Line(s): peripheral IVs Code Status: Full Code Supportive care otherwise Findings, concerns and plans were discussed with patient and she was given an opportunity to ask questions Plan for today moved to medical floors, monitor respiratory status plan on discharge in next 24 to 48 hours PDMP PDMP Reviewed: Last Reviewed 08/01/24 09:16 by Cas Ewing MD Attestations 2 Medical Necessity Statement*: Patient requires hospitalization for acute hypoxic respiratory failure, pneumonia, COPD Diagnoses Community acquired bilateral lower lobe pneumonia J18.9 Acute respiratory failure with hypoxia J96.01 Hypokalemia E87.6 Asthma due to environmental allergies J45.909 Essential (primary) hypertension I10 Palpitations with regular cardiac rhythm R00.2 Adult onset hypothyroidism E03.8 Anxiety, generalized 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
[2024-08-06] MEDS: fluconazole 100 mg Tablet PO (15:48)
[2024-08-06] MEDS: doxycycline 100 mg Tablet PO (17:36)
--- NOTE | 2024-08-06 18:23 | PC.NURSE ---
Shift note: Uneventful shift. Patient ambulated throughout ICU floor two laps, oxygen saturation on monitor dropped to 89 at lowest, Room air while ambulating. Patient using bathroom in room. 100% of meals.
[2024-08-07] VITALS (338 sets, daily range): BP systolic 123–159; BP diastolic 61–106; PULSE 59–97; RESP 7–29; TEMP 36.6–36.8; O2SAT 81–99; BMI 41.1
[2024-08-07] MEDS: ipratropium-albuterol 3 mL Neb INHALATION ×6 (03:54→23:22)
[2024-08-07 04:41] LABS: Basophils # 0.1 10^3/uL (0.0-0.1); Basophils % 0.3 %; Eosinophils # 0.2 10^3/uL (0.0-0.8); Eosinophils % 0.9 %; Hematocrit 35.5 % (36-47); Lymphocytes # 5.8 10^3/uL (0.8-4.8); Lymphocytes % 31.1 %; Mean Corpuscular HGB Conc 31.5 g/dL (30-55); Mean Corpuscular Hemoglobin 27.3 pg (27-33); Mean Corpuscular Volume 86.6 fl (85-98); Mean Platelet Volume 9.6 fL (7.4-10.4); Monocytes # 0.8 10^3/uL (0.2-0.9); Monocytes % 4.1 %; Neutrophils # 11.02 10^3/uL (1.8-7.7); Neutrophils % 58.7 %; Nucleated Red Blood Cells % 0 %; Platelet Count 376 10^3/cmm (157-399); Red Cell Distribution Width 15.9 % (12.1-15.1); White Blood Count 18.75 10^3/uL (3.29-11.43)
[2024-08-07] MEDS: sucralfate 1 gm/10 mL Oral Liq UDC PO ×4 (04:42→21:59)
[2024-08-07 05:07] LABS: Alanine Aminotransferase 14 U/L (0-33); Alkaline Phosphatase 82 U/L (35-105); Anion Gap 15.5 (5-19); Aspartate Amino Transferase 8 U/L (0-32); Blood Urea Nitrogen 16 mg/dL (6-20); C Reactive Protein 11.6 mg/L (0.0-4.9); Carbon Dioxide 24 mmol/L (22-29); Chloride 101 mmol/L (98-107); Creatinine Clr Calc Pharmacy 97.4272; Globulin 2.4 g/dL (1.3-4.6); Glomerular Filtration Rate 67.4 mL/min (90-130); Glucose 103 mg/dL (65-115); NT Pro B Type Natriuretic Pept 338 pg/mL (0-125); Osmolality Calculated 285 mOsm/kg (285-295); Potassium 3.5 mmol/L (3.5-5.1); Sodium 137 mmol/L (136-145); Total Bilirubin 0.2 mg/dL (0.15-1.2); Total Protein 5.4 g/dL (6.6-8.7)
[2024-08-07] MEDS: budesonide 0.5 mg/2 mL Neb INHALATION ×2 (07:45→20:20)
[2024-08-07] MEDS: pantoprazole 40 mg SDV IVP ×2 (07:55→21:40)
[2024-08-07] MEDS: enoxaparin 40 mg/0.4 mL Syringe SUBCUT (07:55)
[2024-08-07] MEDS: predniSONE 20 mg Tablet 40 MG PO (07:56)
[2024-08-07] MEDS: propranolol 20 mg Tablet 10 MG PO ×2 (07:56→21:40)
[2024-08-07] MEDS: nicotine 21 mg Patch 1 PATCH TRANSDERMA (07:56)
[2024-08-07] MEDS: fluconazole 100 mg Tablet PO (07:56)
[2024-08-07] MEDS: doxycycline 100 mg Tablet PO ×2 (07:57→17:05)
[2024-08-07] MEDS: magnesium oxide 400 mg tablet PO ×2 (07:57→17:05)
[2024-08-07] MEDS: levothyroxine 88 mcg Tablet PO (07:57)
[2024-08-07] MEDS: montelukast sodium 10 mg Tablet PO (07:57)
[2024-08-07] MEDS: lisinopril 20 mg Tablet PO (07:57)
[2024-08-07] MEDS: citalopram 20 mg Tablet 40 MG PO (07:57)
[2024-08-07] MEDS: cetirizine 10 mg Tablet PO (07:58)
--- NOTE | 2024-08-07 09:18 | XRR_ITS ---
PROCEDURE INFORMATION: Exam: XR Chest Exam date and time: 08/07/2024 9:32 AM Age: 48 years old Clinical indication: Shortness of breath; Additional info: SOB TECHNIQUE: Imaging protocol: Radiologic exam of the chest. Views: 1 view. COMPARISON: CR (CHEST, ) 08/05/2024 8:12 AM FINDINGS: Lungs: Unremarkable. No consolidation. Pleural spaces: Unremarkable. No pleural effusion. No pneumothorax. Heart/Mediastinum: Unremarkable. No cardiomegaly. Bones/joints: Unremarkable. XR/XR chest 1V portable [id number] IMPRESSION: No acute findings.
--- NOTE | 2024-08-07 09:28 | PC.SOCIAL ---
IMM Update Pg. 2 of IMM updated. Copy provided at bedside.
--- NOTE | 2024-08-07 15:14 | PM.PN ---
Subjective Subjective: Patient was seen this morning, she is oriented x 3, following all commands, reports persistent shortness of breath on exertion intermittent need for oxygen, does report a cough, no fevers overnight, we discussed her leukocytosis, I think the source is likely steroids, so far her fungal studies have been unremarkable repeat chest x-ray today, awaiting on her PCP PCR, discussed plans on possibly discharging her in the next 24 hours as long as her white blood cell count is reasonable she denies any diarrhea, no abdominal pain, no new rashes Vitals/I&O/Wt Last Vital Signs Temp 97.8 F 08/07/24 04:05 Pulse 82 08/07/24 14:30 Resp 17 08/07/24 14:30 BP 125/79 08/07/24 14:30 Pulse Ox 97 08/07/24 14:30 O2 Del Method Nasal Cannula 08/07/24 11:16 O2 Flow Rate 0.5 08/07/24 11:16 FiO2 29 08/04/24 15:00 08/07/24 08/07/24 08/07/24 06:59 14:59 22:59 Intake Total 800 / 1800 480 / 480 Output Total 900 / 1300 Balance -100 / 500 480 / 480 Weight last 48 hrs Weight 112 kg Weight 112.037 kg Physical Exam Const: COMMON NORMALS: no acute distress and patient oriented x3 Resp: COMMON NORMALS: normal respiratory effort, No retractions, No use of accessory muscles and clear to auscultation bilaterally AUSCULTATION: clear to auscultation bilaterally Cardio: COMMON NORMALS: regular rate, regular rhythm, S1 normal heart sound present and S2 normal heart sound present RATE: regular rate RHYTHM: regular rhythm HEART SOUNDS: S1 normal heart sound present and S2 normal heart sound present GI: COMMON NORMALS: Normal to inspection, nondistended, normoactive bowel sounds present and non-tender Extremity: COMMON NORMALS: no calf tenderness and no pedal edema Neuro: COMMON NORMALS: patient oriented x3 Psych: COMMON NORMALS: mental status grossly normal Data 08/07/24 04:14 08/07/24 04:14 A&P Assessment and plan (1) Community acquired bilateral lower lobe pneumonia: (2) Acute respiratory failure with hypoxia: (3) Hypokalemia: (4) Asthma due to environmental allergies: (5) Essential (primary) hypertension: (6) Palpitations with regular cardiac rhythm: (7) Adult onset hypothyroidism: (8) Anxiety, generalized: (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: (10) Chronic insomnia: (11) Chronic headaches: (12) Obesity, morbid, BMI 40.0-49.9: Plan Acute hypoxic respiratory failure -Secondary to pneumonia - With concerns for acute respiratory distress syndrome -With history of underlying asthma/COPD - With concerns for underlying atypical infection - Now on nasal cannula, overall improving, leukocytosis has increased to 18,000 Plan - Orders placed to move to medical floors - DuoNeb - Budesonide - Continue Rocephin day 5 of 5 - Continue Zithromycin day 5 of 5 - De-escalate to prednisone 40 mg daily - Monitor inflammatory panels -ESR 73, haptoglobin 322, LDH 556, CRP 175.6 - PJP PCR pending, QuantiFERON gold negative, Aspergillus negative, beta glucan negative, fungal cultures shows yeast with pseudohyphae on Diflucan, AFB smears so far no growth -As patient is allergic to contrast, cannot do a CT angiogram of the chest to rule out pulmonary embolism, D-dimer 1.72, venous ultrasound negative for DVT, cannot undergo ventilation/perfusion scan as patient is on airborne precautions for rule out for TB and if on heated high flow, patient had a trial of heparin drip for now given the suspicion for pulmonary embolism, however hemoglobin 9.5, Hemoccult stool positive, given that patient is a Rastafari and does not accept blood products, there is a concern for slow GI bleed, for now heparin drip has been stopped, on DVT prophylaxis Lovenox -However patient is developing anemia hemoglobin 9.5, she is a Rastafari, has mild iron deficiency, heparin drip has been held, on DVT prophylaxis Lovenox - Follow-up blood cultures, so far no growth - Follow-up sputum cultures, so far no growth -PJP PCR pending -QuantiFERON gold negative, initial AFB smears negative so far -Take off isolation precautions -Status post 3 doses of Lasix, hold off for today - Patient is DNI Acute anemia, concerns for slow GI bleed, monitor hemoglobin, iron studies, Hemoccult stool is positive, patient is a Rastafari and does not accept blood products, continue Protonix, continue Carafate Hypokalemia, replace p.o. potassium Bruxism/jaw clenching: - Monitor Nicotine dependence: Current smoker, 7-10 cigarettes to almost a pack per day, none in last 2 days. Offered nicotine patch during hospitalization. Elevated blood sugar without history of diabetes: - Check A1c 5.3 Rastafari, declines blood products, okay with client architect such as albumin VTE prophylaxis: Lovenox GI Prophylaxis: PPI Telemetry: Ordered secondary to current tachycardia Priest: not currently indicated Line(s): peripheral IVs Code Status: Full Code Supportive care otherwise Findings, concerns and plans were discussed with patient and she was given an opportunity to ask questions Plan for today moved to medical floors, monitor respiratory status plan on discharge in next 24 to 48 hours PDMP PDMP Reviewed: Last Reviewed 08/01/24 09:16 by Cas Ewing MD Attestations Medical Necessity Statement*: Patient requires hospitalization for acute hypoxic respiratory failure Diagnoses Community acquired bilateral lower lobe pneumonia J18.9 Acute respiratory failure with hypoxia J96.01 Hypokalemia E87.6 Asthma due to environmental allergies J45.909 Essential (primary) hypertension I10 Palpitations with regular cardiac rhythm R00.2 Adult onset hypothyroidism E03.8 Anxiety, generalized 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
[2024-08-07 15:54] LABS: P. Jirovecii DNA QL PCR Not Detected (Not Detected); P. Jirovecii DNA QL PCR Source Sputum
[2024-08-08] VITALS (211 sets, daily range): BP systolic 124–148; BP diastolic 68–92; PULSE 63–91; RESP 10–35; TEMP 37.1; O2SAT 87–99; BMI 41.1
[2024-08-08 03:50] LABS: Basophils % 0.2 %; Eosinophils # 0.2 10^3/uL (0.0-0.8); Eosinophils % 0.9 %; Hematocrit 33.4 % (36-47); Lymphocytes # 5.7 10^3/uL (0.8-4.8); Lymphocytes % 32.2 %; Mean Corpuscular HGB Conc 31.4 g/dL (30-55); Mean Corpuscular Volume 85.9 fl (85-98); Mean Platelet Volume 9.4 fL (7.4-10.4); Monocytes # 0.8 10^3/uL (0.2-0.9); Monocytes % 4.7 %; Neutrophils # 10.13 10^3/uL (1.8-7.7); Neutrophils % 57.8 %; Nucleated Red Blood Cells % 0 %; Platelet Count 322 10^3/cmm (157-399); Red Blood Count 3.89 10^6/uL (3.85-5.65); Red Cell Distribution Width 16.1 % (12.1-15.1); White Blood Count 17.55 10^3/uL (3.29-11.43)
[2024-08-08 04:05] LABS: Anion Gap 13.8 (5-19); Blood Urea Nitrogen 17 mg/dL (6-20); C Reactive Protein 5.5 mg/L (0.0-4.9); Calcium 8.4 mg/dL (8.5-10.5); Carbon Dioxide 26 mmol/L (22-29); Chloride 102 mmol/L (98-107); Creatinine Clr Calc Pharmacy 109.5851; Glomerular Filtration Rate 77.2 mL/min (90-130); Glucose 102 mg/dL (65-115); Osmolality Calculated 288 mOsm/kg (285-295); Potassium 3.8 mmol/L (3.5-5.1); Sodium 138 mmol/L (136-145)
[2024-08-08] MEDS: ipratropium-albuterol 3 mL Neb INHALATION ×2 (04:14→07:58)
[2024-08-08 04:22] LABS: Slide Review Slide Review Perform
[2024-08-08] MEDS: sucralfate 1 gm/10 mL Oral Liq UDC PO (04:24)
[2024-08-08] MEDS: nicotine 21 mg Patch 1 PATCH TRANSDERMA (07:51)
[2024-08-08] MEDS: doxycycline 100 mg Tablet PO (07:51)
[2024-08-08] MEDS: predniSONE 20 mg Tablet 40 MG PO (07:52)
[2024-08-08] MEDS: citalopram 20 mg Tablet 40 MG PO (07:52)
[2024-08-08] MEDS: fluconazole 100 mg Tablet PO (07:52)
[2024-08-08] MEDS: cetirizine 10 mg Tablet PO (07:52)
[2024-08-08] MEDS: levothyroxine 88 mcg Tablet PO (07:53)
[2024-08-08] MEDS: magnesium oxide 400 mg tablet PO (07:53)
[2024-08-08] MEDS: lisinopril 20 mg Tablet PO (07:53)
[2024-08-08] MEDS: montelukast sodium 10 mg Tablet PO (07:53)
[2024-08-08] MEDS: propranolol 20 mg Tablet 10 MG PO (07:53)
[2024-08-08] MEDS: enoxaparin 40 mg/0.4 mL Syringe SUBCUT (07:58)
[2024-08-08] MEDS: budesonide 0.5 mg/2 mL Neb INHALATION (07:58)
--- NOTE | 2024-08-08 10:39 | PC.NURSE ---
Extensive education provided to patient and patients mother regarding medications, follow up appointments and when to call the DR/S/S to go to ER. All patient belongings and new walker loaded to patients personal vehicle. Patient and family had no questions at the time of discharge.
--- NOTE | 2024-08-08 12:35 | P.DS_ITS ---
Discharge Providers Date of Admission: 07/31/24 15:20 Date of Discharge: August 08, 2024 Attending Provider at Admission: Milla Currie MD Attending Provider at Discharge: Cas Ewing MD Primary Care Provider: MYLES Mcclain Diagnoses at Discharge Discharge Diagnosis (1) Community acquired bilateral lower lobe pneumonia: Status: Acute (2) Acute respiratory failure with hypoxia: Status: Acute (3) Hypokalemia: Status: Acute (4) Asthma due to environmental allergies: Status: Chronic (5) Essential (primary) hypertension: Status: Chronic (6) Palpitations with regular cardiac rhythm: Status: Chronic (7) Adult onset hypothyroidism: Status: Chronic (8) Anxiety, generalized: Status: Chronic (9) FDC (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: Status: Chronic (10) Chronic insomnia: Status: Chronic (11) Chronic headaches: Status: Chronic (12) Obesity, morbid, BMI 40.0-49.9: Status: Chronic Reason for Visit Reason for Visit: SOB Hospital Course Hospital Course Cynthia Ca is a 48 year old female with a history of asthma presenting with acute onset of feeling unwell since Wednesday or Wednesday night (two to three days ago). Symptoms worsened yesterday and today. She reports significant shortness of breath with any exertion and at rest, sweating, productive cough with mucus, and a raw throat. No hemoptysis noted. Cynthia had attempted daphnie f-management with Mucinex and breathing treatments (xopenex inhaler and albuterol nebulizer), which provided some relief but did not resolve symptoms. She denies fever, vomiting, diarrhea, or leg pain or swelling. The patient reports a significant headache, described as pressure across the forehead, and ear discomfort described as a sensation of water in the ears. The patient also reports a new issue with jaw clenching, which occurs off and on. The patient has a history of palpitations but no known heart disease or documented arrhythmias. These have been more prominent last couple days. Not known to have sleep apnea per prior sleep studies. Not normally on oxygen. She is a current smoker of half to one pack per day, but has not smoked in the last two days due to respiratory difficulty. The patient lives alone and has a caregiver who help out when needed and a nurse who visits every six months. That nurse visited today and noted patients oxygen levels were into 80s. EMS was called due to significant malaise and hypoxemia. She required 2L BNC en route to ED and received duoneb as well. The patient is currently requiring four liters of oxygen BNC to maintain a saturation of 92%. The patient reports difficulty ambulating over the last couple of days due to shortness of breath and fatigue. No recent changes in medications. She have chronic nexk and back pain and is on hydromorphone and soma as needed. Seasonal allergies have been difficult to manage last few weeks. She has had prior episodes of pneumonia but not required hospitalization for pneumonia previously. Patient was admitted to [facility] for acute hypoxic respiratory failure secondary to pneumonia, with underlying asthma/COPD. Patient's respiratory status/condition declined, requiring ICU admission, developing acute respiratory distress syndrome, requiring heated high flow up to 50% 50 L, broad- spectrum antibiotic therapy, workup for atypical infection, workup for fungal infections, TB workup, and high-dose steroids. Overall patient's clinical condition slowly improved, so far blood cultures negative, PJP PCR so far negative, TB QuantiFERON gold negative, AFB smear so far no growth, sputum culture so far show yeast with pseudohyphae, fungal cultures show yeast with pseudohyphae likely candidiasis, fungal studies were negative, Aspergillus studies were negative. Patient was fluid overloaded, she responded quite well with 3 doses of IV Lasix. Patient was eventually weaned off heated high flow, to nasal cannula, and eventually to room air. Patient will be discharged on a prednisone taper, doxycycline, Advair, Incruse, albuterol, with close follow-up with primary care provider as outpatient. Referral was sent to pulmonary in [place]. There was initial concerns for possible pulmonary embolism, could not perform a CT angiogram the chest given patient's contrast allergy, could not undergo ventilation/perfusion scanning given workup for TB/air borne precautions/patient requiring heated high flow, she was trialed on a heparin drip however hemoglobin dropped to 9.5, Hemoccult stool positive, patient was a Sabianist do not accept blood products, concerns for slow GI bleed. Heparin drip was stopped, nonetheless patient's oxygen requirements declined, respiratory status improved, and clinical condition improved. Discussed with patient that my clinical s uspicion for pulmonary embolism is low, after discussing risks and benefits with patient, she voiced understanding, all questions answered, shared decision making, agreed to proceed; nonetheless she should continue to ambulate, if she develops any calf pain or calf swelling or hemoptysis to immediately come to the emergency room. For her acute anemia, concern for slow GI bleed, evidence of early iron deficiency, Hemoccult positive stools, patient is a Sabianist and does not accept blood products. No hemodynamic compromise, active bloody or black stools. Will discharge her with close follow-up with general surgery as outpatient for consideration of EGD and colonoscopy For her smoking, I have had lengthy discussions with patient about smoking cessation counseling, morbidity and mortality associated with continued smoking, especially with her current lung condition, patient voiced understanding, all questions answered, agreed to quit smoking, she is discharged with nicotine [facility] Physical Exam Const: COMMON NORMALS: no acute distress and patient oriented x3 Resp: COMMON NORMALS: normal respiratory effort, No retractions, No use of accessory muscles and clear to auscultation bilaterally AUSCULTATION: clear to auscultation bilaterally Cardio: COMMON NORMALS: regular rate, regular rhythm, S1 normal heart sound present and S2 normal heart sound present RATE: regular rate RHYTHM: regular rhythm HEART SOUNDS: S1 normal heart sound present and S2 normal heart sound present GI: COMMON NORMALS: Normal to inspection, nondistended, normoactive bowel sounds present and non-tender Extremity: COMMON NORMALS: no pedal edema Neuro: COMMON NORMALS: patient oriented x3 Psych: COMMON NORMALS: mental status grossly normal Discharge Data Studies Completed and Pending Completed Studies During Hospitalization Category Date Time Status CT chest wo con [id number] Stat Cat Scan 08/01/24 09:15 Completed XR chest 1V portable [id number] Routine Exams 08/02/24 07:00 Completed XR chest 1V portable [id number] Routine Exams 08/05/24 07:00 Completed XR chest 1V portable [id number] Stat Exams 07/31/24 10:47 Completed XR chest 1V portable [id number] Stat Exams 08/07/24 09:18 [place] [id number] Routine Ultrasound 08/01/24 09:15 Completed CV. echo limited [id number] Routine Ultrasound 08/01/24 15:04 Completed Pending at discharge Category Date Time Status AFB [Mycobacteria, Culture w/Fluor] Stat Lab 08/01/24 15:00 Results AFB [Mycobacteria, Culture w/Fluor] Stat Lab 08/02/24 17:06 Results Blastomyces AB Panel CF and ID Stat Lab 08/01/24 15:31 Received Fungal Culture not HR/SK/BL Stat Lab 08/01/24 14:47 Results Radiology Impressions Chest CT 08/01/24 09:15 IMPRESSION: Diffuse extensive groundglass and airspace infiltrates throughout both lungs extending to the periphery. No pleural fluid. Differential considerations described above. Chest X-Ray 08/07/24 09:18 IMPRESSION: No acute findings. Laboratory Results WBC 17.55 10^3/uL (3.29-11.43) H 08/08/24 03:39 RBC 3.89 10^6/uL (3.85-5.65) 08/08/24 03:39 Hgb 10.50 g/dL (11.27-16.99) L 08/08/24 03:39 Hct 33.4 % (36-47) L 08/08/24 03:39 MCV 85.9 fl (85-98) 08/08/24 03:39 MCH 27.0 pg (27-33) 08/08/24 03:39 MCHC 31.4 g/dL (30-55) 08/08/24 03:39 RDW 16.1 % (12.1-15.1) H 08/08/24 03:39 Plt Count 322 10^3/cmm (157-399) 08/08/24 03:39 MPV 9.4 fL (7.4-10.4) 08/08/24 03:39 Neut % (Auto) 57.8 % 08/08/24 03:39 Lymph % (Auto) 32.2 % 08/08/24 03:39 [place] % (Auto) 4.7 % 08/08/24 03:39 Eos % (Auto) 0.9 % 08/08/24 03:39 Baso % (Auto) 0.2 % 08/08/24 03:39 Neut # (Auto) 10.13 10^3/uL (1.8-7.7) H 08/08/24 03:39 Lymph # (Auto) 5.7 10^3/uL (0.8-4.8) H 08/08/24 03:39 [place] # (Auto) 0.8 10^3/uL (0.2-0.9) 08/08/24 03:39 Eos # (Auto) 0.2 10^3/uL (0.0-0.8) 08/08/24 03:39 Baso # (Auto) 0.0 10^3/uL (0.0-0.1) 08/08/24 03:39 Nucleated RBC % (auto) 0 % 08/08/24 03:39 Nucleated RBCs # 0.0 /100WBC 08/08/24 03:39 ESR 73 mm/hr (0-15) H 08/01/24 05:06 Haptoglobin 322.0 mg/L (30-200) H 08/01/24 05:06 APTT 25.0 SECONDS (23.9-36.7) D 08/03/24 12:06 D-Dimer 1.72 ug/mLFEU (0-0.59) H 08/01/24 05:06 Specimen Type Arterial 08/01/24 03:51 Sample Site Radial, right 08/01/24 03:51 ABG pH 7.51 (7.35-7.45) H 08/01/24 03:51 ABG pCO2 29.3 mmHg (35-45) L 08/01/24 03:51 ABG pO2 56.2 mmHg (80.0-100.0) L 08/01/24 03:51 ABG PO2/FiO2 Ratio 148 07/31/24 14:58 ABG HCO3 23.4 mmol/L (22-26) 08/01/24 03:51 ABG O2 Saturation 95.6 07/31/24 14:58 ABG Base Excess 1.0 mmol/L (-2.0-2.0) 08/01/24 03:51 Ritchie Test Pos 08/01/24 03:51 A-a O2 Gradient 27.4 mmHg (5-10) H 07/31/24 14:58 Hematocrit 32.6 % (37-47) L 08/01/24 03:51 Hgb O2 Saturation 92.7 % (95-100) L 07/31/24 14:58 Carboxyhemoglobin 1.9 %THgb (0.4-20.1) 07/31/24 14:58 Methemoglobin 1.1 % (0.4-1.5) 07/31/24 14:58 Total Hemoglobin 11.6 g/dL (12-16) L 07/31/24 14:58 Sodium 136.0 mmol/L (131-143) 07/31/24 14:58 Potassium 2.6 mmol/L (3.5-5.0) L 07/31/24 14:58 Glucose 107.0 mg/dL (70-115) 07/31/24 14:58 Ionized Calcium 1.1 mmol/L (1.1-1.4) 07/31/24 14:58 O2 Delivery Device Nc 08/01/24 03:51 O2 Liters/Min 6.0 % 08/01/24 03:51 FiO2 45.0 % 07/31/24 14:58 Security System Sales Consultant ID [email or web address] 08/01/24 03:51 Sodium 138 mmol/L (136-145) 08/08/24 03:39 Potassium 3.8 mmol/L (3.5-5.1) 08/08/24 03:39 Chloride 102 mmol/L (98-107) 08/08/24 03:39 Carbon Dioxide 26 mmol/L (22-29) 08/08/24 03:39 Anion Gap 13.8 (5-19) 08/08/24 03:39 BUN 17 mg/dL (6-20) 08/08/24 03:39 Creatinine 0.8 mg/dL (0.5-0.9) 08/08/24 03:39 GFR Calculation 77.2 mL/min (90-130) L 08/08/24 03:39 Glucose 102 mg/dL (65-115) 08/08/24 03:39 Estimat Average Glucose 105 08/01/24 05:06 Hemoglobin A1c 5.3 % (4.0-6.0) 08/01/24 05:06 Calculated Osmolality 288 mOsm/kg (285-295) 08/08/24 03:39 Lactic Acid 1.5 mmol/L (0.5-2.2) 07/31/24 11:17 Calcium 8.4 mg/dL (8.5-10.5) L 08/08/24 03:39 Phosphorus 3.8 mg/dL (2.5-4.5) 08/04/24 04:59 Magnesium 2.2 mg/dL (1.7-2.3) 08/04/24 04:59 Iron 48 ug/dL (37-145) 08/02/24 17:27 TIBC 214 mcg/dl 08/02/24 17:27 % Saturation 22.4 % (20-50) 08/02/24 17:27 Unsat Iron Binding 166 ug/dL (112-347) 08/02/24 17:27 Ferritin 205 ng/mL (15-150) H 08/02/24 17:27 Total Bilirubin 0.2 mg/dL (0.15-1.2) 08/07/24 04:14 AST 8 U/L (0-32) 08/07/24 04:14 ALT 14 U/L (0-33) 08/07/24 04:14 Alkaline Phosphatase 82 U/L (35-105) 08/07/24 04:14 Lactate Dehydrogenase 556 U/L (135-214) H 08/01/24 05:06 C-Reactive Protein 5.5 mg/L (0.0-4.9) H 08/08/24 03:39 NT-Pro-B Natriuret Pep 338 pg/mL (0-125) H 08/07/24 04:14 Total Protein 5.4 g/dL (6.6-8.7) L 08/07/24 04:14 Albumin 3.0 g/dL (3.5-5.2) L 08/07/24 04:14 Globulin 2.4 g/dL (1.3-4.6) 08/07/24 04:14 Procalcitonin 0.07 ng/mL (0-0.5) 08/04/24 04:59 Nasal MRSA (PCR) Not detected (Not Detecte) 08/03/24 14:50 RONNIE IFA Animal Tis Res Negative (NEGATIVE) 08/01/24 11:48 VAL-1 Antibody <1.0 neg AI (<1.0 NEG) 08/01/24 11:48 SS-A Antibody <1.0 neg AI (<1.0 NEG) 08/01/24 11:48 SS-B Antibody <1.0 neg AI (<1.0 NEG) 08/01/24 11:48 Sm ([place]) Antibody <1.0 neg AI (<1.0 NEG) 08/01/24 11:48 MILLINERY WORKER Antibody <1.0 neg AI (<1.0 NEG) 08/01/24 11:48 Scl-70 Antibody <1.0 neg AI (<1.0 NEG) 08/01/24 11:48 Anti-ds DNA IgG ([place]) Negative (NEGATIVE) 08/01/24 11:48 Centromere B Antibody <1.0 neg AI (<1.0 NEG) 08/01/24 11:48 Thyroid Peroxidase Ab 87 IU/mL (<9) H 08/01/24 11:48 Complement C3c 76 mg/dL (83-193) L 08/01/24 11:48 Complement C4c 24 mg/dL (15-57) 08/01/24 11:48 CH50 Classical Pathway 55 U/mL (31-60) 08/01/24 11:48 Adenovirus (PCR) Not detected (NOT DETECT) 08/01/24 12:35 C. pneumoniae DNA (PCR) Not detected (NOT DETECT) 08/01/24 12:35 Coccidioides IgG Ab Negative 08/01/24 15:31 Coccidioides IgM Ab Negative 08/01/24 15:31 Coronavirus 229E (PCR) Not detected (NOT DETECT) 08/01/24 12:35 Hepatitis A IgM Ab Non-reactive (Nonreactive) 08/01/24 05:06 Hep Bs Antigen Non-reactive (Nonreactive) 08/01/24 05:06 Hep B Core IgM Ab Non-reactive (Nonreactive) 08/01/24 05:06 Hepatitis C Antibody Non-reactive (Nonreactive) 08/01/24 05:06 U Histop Galact Ag Qnt <0.2 ng/mL 08/02/24 10:25 HIV 1&2 Ab & HIV 1 Ag Non-reactive (Non-Reactiv) 08/01/24 05:06 HIV 1&2 Antibody Non-reactive (Non-Reactiv) 08/01/24 05:06 Human Metapneumovir PCR Not detected (NOT DETECT) 08/01/24 12:35 Influenza A (H1) PCR Not detected (NOT DETECT) 08/01/24 12:35 Influ A (H1/09) PCR Not detected (NOT DETECT) 08/01/24 12:35 Influenza A (H3) PCR Not detected (NOT DETECT) 08/01/24 12:35 Influenza Type A (PCR) Not detected (NOT DETECT) 08/01/24 12:35 Influenza Type B (PCR) Not detected (NOT DETECT) 08/01/24 12:35 M. pneumoniae (PCR) Not detected (NOT DETECT) 08/01/24 12:35 Parainfluenza 1 (PCR) Not detected (NOT DETECT) 08/01/24 12:35 Parainfluenza 2 (PCR) Not detected (NOT DETECT) 08/01/24 12:35 Parainfluenza 3 (PCR) Not detected (NOT DETECT) 08/01/24 12:35 Parainfluenza 4 (PCR) Not detected (NOT DETECT) 08/01/24 12:35 Pneumocystis Source Sputum 08/01/24 23:15 Pneumocyst jirovecii PCR Not detected (Not Detected) 08/01/24 23:15 A. galactomannan Ag EIA Not detected 08/01/24 15:31 A. galactomannan Ag Idx <0.50 08/01/24 15:31 RSV Type A (PCR) Not detected (NOT DETECT) 08/01/24 12:35 RSV Type B (PCR) Not detected (NOT DETECT) 08/01/24 12:35 Entero/Rhino (PCR) Not detected (NOT DETECT) 08/01/24 12:35 SARS-CoV-2 (PCR) Not detected (NOT DETECT) 08/01/24 12:35 TB (QFT) Gold In Tube Negative (NEGATIVE) 08/01/24 15: TB Test (QFT) Nil 0.01 IU/mL 08/01/24 15: TB Test (QFT) Mitogen 2.41 IU/mL 08/01/24 15:31 TB Test Mitogen - Nil 0.00 IU/mL 08/01/24 15: TB Test TB -Nil 0.00 IU/mL 08/01/24: Beta-(1,3)-D-Glucan <31 pg/mL (<60) 08/01/24 15: B-(1,3)-D-Glucan Intrp Negative (Negative) 08/01/24 15:31 Vitals Last Vital Signs Temp 98.8 F 08/08/24 10:20 Pulse 80 08/08/24 10:20 Resp 14 08/08/24 10:20 BP 142/90 08/08/24 10:20 Pulse Ox 93 08/08/24 10:20 O2 Del Method Room Air 08/08/24 10:16 O2 Flow Rate 0.5 08/07/24 11:16 FiO2 29 08/04/24 15:00 Discharge Plan Discharge Patient Disposition: Home Condition: Stable Prescriptions: New fluconazole 100 mg Tablet 100 mg PO DAILY 5 Days Qty: 5 0RF doxycycline monohydrate 100 mg Tablet 100 mg PO BID 5 Days Qty: 10 0RF prednisone 10 mg tablet See Rx Instructions .ROUTE .COMPLEX Qty: 53 0RF Rx Instructions: 4tabs(40mg) a day for 5 days, 3 tabs(30mg) for 5days, 2 tabs (20mg) for 5 days, 1 tab (10mg) for 5 days budesonide-formoterol [Symbicort] 160-4.5 mcg/actuation HFA aerosol inhaler 1 inh inhalation BID 30 Days Qty: 10.2 0RF Incruse Ellipta 62.5 mcg/actuation blister with device 1 inh inhalation DAILY Qty: 30 0RF nicotine 21 mg/24 hr patch 24 hour 1 patch transdermal DAILY 28 Days Qty: 28 0RF Continued carisoprodol 350 mg tablet 350 mg PO TID PRN (Reason: muscle pain) propranolol 20 mg tablet 10 mg PO Q12H citalopram 40 mg tablet 40 mg PO DAILY Qty: 30 5RF levocetirizine [Xyzal] 5 mg tablet 5 mg PO DAILY Qty: 30 5RF levothyroxine 88 mcg tablet 88 mcg PO DAILY Qty: 30 5RF lisinopril-hydrochlorothiazide 20-12.5 mg tablet 1 tab PO DAILY Qty: 30 5RF magnesium oxide 400 mg magnesium tablet 400 mg PO BID Qty: 60 5RF montelukast 10 mg tablet 10 mg PO DAILY Qty: 30 5RF benzonatate 100 mg capsule 100 mg PO BID PRN (Reason: cough) Qty: 30 0RF promethazine-DM 6.25-15 mg/5 mL syrup 5 ml PO Q6H PRN (Reason: cough) Qty: 120 0RF ergocalciferol (vitamin D2) 1,250 mcg (50,000 unit) capsule 50,000 unit PO .weekly Qty: 4 2RF hydromorphone 4 mg tablet 4 - 8 mg PO .Q4-6H PRN (Reason: Pain) docusate sodium 100 mg capsule 100 mg PO DAILY PRN (Reason: Constipation) clindamycin phosphate 1 % lotion 1 applic topical DAILY PRN (Reason: Skin Irritation) Rx Instructions: to areas where boils occur 1-2 times daily albuterol sulfate 2.5 mg /3 mL (0.083 %) Solution For Nebulization 2.5 mg INHALATION Q6H PRN (Reason: Wheezing) 30 Days Qty: 75 0RF Held levalbuterol tartrate [Xopenex HFA] 45 mcg/actuation HFA aerosol inhaler 2 inh INHALATION Q6H PRN (Reason: shortness of breath or wheezing) Qty: 15 5RF Hold Instructions: Resume on 10/08/24. hold while on symbicort budesonide-formoterol [Breyna] 160-4.5 mcg/actuation HFA aerosol inhaler 2 puff INHALATION Q12H Hold Instructions: Resume on 09/08/24. hold while on symbicort Discontinued ibuprofen 400 mg tablet 400 mg PO Q12H PRN (Reason: Pain) Discharge Orders: Discharge Order (Routine); Ordered 08/08/24 Ordered By: Cas Ewing Other Ambulatory Orders: DME: Bob (Order) Location: None Selected Ordered By: Cas Ewing Referrals: Rinku Mcgregor MD [Physician, General Surgery] - 09/04/24 8:00 am Referral Note: colonoscopy and egd Jessica Cooney, PRODUCT MANAGENT INTERN-C [Primary Care Provider, Family Practice] - 08/14/24 2:00 pm Santos Flores MD, MBBS, MPH [Referring, Pulmonology] - 7-10 days Referral Note: info has been sent and they will contact you with an appt. Discharge Diet: Cardiac Discharge Activity: Resume usual activity Patient Instructions: Doxycycline (By mouth), Prednisone (By mouth), Fluconazole (By mouth), Nicotine (Absorbed through the skin) (Nicoderm CQ, Nicoderm CQ..., Fluticasone (By breathing), Budesonide/Formoterol (By breathing) (Symbicort, Symbicort Aerosphere), Umeclidinium (By breathing), Heart Healthy Diet (DC), Opioid Safety, Quitting Smoking Activity Restrictions/Additional Instructions: -please stop smoking -please follow up with pulmonary -for you blood in stool follow up with general surgery for egd and colonoscopy Discharge Attestations Time Spent in Discharge Care*: greater than 30 min Quality Metrics Clinical Quality Measures [ No reported AMI, CVA or VTE this stay] Coding Level of Care Code 18696 Total time (in minutes) for Discharge: 45 Diagnoses Community acquired bilateral lower lobe pneumonia J18.9 Acute respiratory failure with hypoxia J96.01 Hypokalemia E87.6 Asthma due to environmental allergies J45.909 Essential (primary) hypertension I10 Palpitations with regular cardiac rhythm R00.2 Adult onset hypothyroidism E03.8 Anxiety, generalized F41.1 director long term care (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
== END 2024-08-08 10:42 | disposition home or self-care (01) | DRG 193 ==
LOC: ER 13:11 → MEDSURG 15:20 → ICU 08-01 12:28
PROVIDERS: Internal Medicine; Admitting Provider Hospitalist; Emergency Provider Emergency Medicine; PCP Nurse Practitioner; Visit Provider Family Medicine
DX: J18.9 Pneumonia, unspecified organism (principal); J96.01 Acute respiratory failure with hypoxia; J44.0 Chronic obstructive pulmonary disease with (acute) lower respiratory infection; E87.6 Hypokalemia; J45.998 Other asthma; I10 Essential (primary) hypertension; E03.9 Hypothyroidism, unspecified; F41.1 Generalized anxiety disorder; G47.00 Insomnia, unspecified; R51.9 Headache, unspecified; E66.01 Morbid (severe) obesity due to excess calories; Z68.39 Body mass index [BMI] 39.0-39.9, adult; G89.29 Other chronic pain; M54.2 Cervicalgia; M54.9 Dorsalgia, unspecified; D50.9 Iron deficiency anemia, unspecified; E78.2 Mixed hyperlipidemia; F17.210 Nicotine dependence, cigarettes, uncomplicated; E53.8 Deficiency of other specified B group vitamins; E55.9 Vitamin D deficiency, unspecified; Z79.891 Long term (current) use of opiate analgesic; Z87.442 Personal history of urinary calculi; Z91.041 Radiographic dye allergy status
CPT/HCPCS: 36415; 36600; 71045; 71250; 80048; 80051; 80053; 80074; 82274; 82330; 82728; 82803; 82805; 83010; 83036; 83540; 83550; 83605; 83615; 83735; 83880; 84100; 84145; 85025; 85378; 85651; 85730; 86140; 86160; 86162; 86235; 86255; 86376; 86480; 86612; 86635; 87015; 87040; 87070; 87102; 87116; 87205; 87206; 87305; 87385; 87449; 87486; 87581; 87633; 87798; 87801; 87806; 93005; 93308; 93970; 94640; 94760; 96365; 96366; 96367; 96372; 96374; 96375; 96376; 99285; J0456; J0696; J1644; J1650; J1938; J2470; J2919; J3480; J7030; J7050; J7512; J7613; J7626; J9999

== ENCOUNTER → 2024-08-14 14:42 | Outpatient (BNVA) | payer MEDICARE, MEDICAID, SELFPAY | PROVIDERS: PCP Nurse Practitioner; Visit Provider Nurse Practitioner | DX: E55.9 Vitamin D deficiency, unspecified (principal); I10 Essential (primary) hypertension | CPT/HCPCS: 80053; 81000; 82306; 83735; 85025 ==

== ENCOUNTER → 2024-08-29 13:53 | Outpatient (BNVA) | payer MEDICARE, MEDICAID, SELFPAY | PROVIDERS: PCP Nurse Practitioner; Visit Provider Nurse Practitioner | DX: I10 Essential (primary) hypertension (principal) | CPT/HCPCS: 80048; 85025 ==

== ENCOUNTER → 2024-10-19 14:55 | Outpatient (BNVA) | payer MEDICARE, MEDICAID, SELFPAY | PROVIDERS: PCP Nurse Practitioner; Visit Provider Nurse Practitioner Family | DX: L73.9 Follicular disorder, unspecified (principal); D18.01 Hemangioma of skin and subcutaneous tissue; L82.0 Inflamed seborrheic keratosis; L29.89 Other pruritus; R20.9 Unspecified disturbances of skin sensation; R20.8 Other disturbances of skin sensation; L53.8 Other specified erythematous conditions; L91.8 Other hypertrophic disorders of the skin | CPT/HCPCS: 17110; 99213 ==

== ENCOUNTER → 2025-01-18 14:39 | Outpatient (BNVA) | payer MEDICARE, MEDICAID, SELFPAY | PROVIDERS: PCP Nurse Practitioner; Visit Provider Nurse Practitioner | DX: E53.8 Deficiency of other specified B group vitamins (principal); I10 Essential (primary) hypertension; E78.2 Mixed hyperlipidemia; E03.8 Other specified hypothyroidism | CPT/HCPCS: 80053; 80061; 82607; 84443 ==

== ENCOUNTER 2025-01-25 08:24 | Outpatient (CLI) | payer MEDICARE, MEDICAID, SELFPAY ==
--- NOTE | 2025-01-25 09:00 | FL_ITS ---
WS: [id number] Exam: [place] barium swallow modifd [id number] Date/Time of Exam: 01/25/2025 8:59 AM Reason For Exam: R13.10 - Dysphagia, unspecified Fluoroscopy time: 2min [id number] minutes # of spot films: Modified barium swallow test was performed in conjunction with the speech therapy service. The patient experienced penetration into the laryngeal inlet when ingesting thin liquid barium. No aspiration was identified. The patient swallowed a barium tablet without difficulty however the tablet was retained in the lower esophagus. The tablet was propelled into the stomach with additional admini stration of pudding consistency barium mixture foodstuffs. FL/FL barium swallow modifd [id number] IMPRESSION: 1. The patient experienced mild penetration when ingesting thin liquid barium. 2. Mild hypomotility of the distal esophagus identified when ingesting a barium tablet. See above discussion. A separate report with detailed recommendations will follow from the speech the rapy service.
== END 2025-01-25 08:25 | disposition home or self-care (01) ==
LOC: RAD 08:26
PROVIDERS: PCP Nurse Practitioner; Visit Provider Nurse Practitioner
DX: R13.10 Dysphagia, unspecified (principal); K22.4 Dyskinesia of esophagus
CPT/HCPCS: 74230; 92611